=== PATIENT | female | born 1940 | race Caucasian/White ===

== ENCOUNTER 2021-10-14 08:43 | Emergency (ER) | payer MEDICARE, SELFPAY ==
--- NOTE | ~2021-10-14 | CT_ITS ---
EXAMINATION: CT abdomen pelvis w con DATE: 10/14/2021 09:49 INDICATION: Left lower quadrant abdominal pain. TECHNIQUE: Computed tomography (CT) of the abdomen and pelvis was performed with 100 mL Omnipaque 350 intravenous contrast. Automated exposure control and iterative reconstruction technique were employe d. The dose-length product was 1055.34 mGy-cm. COMPARISON: None. FINDINGS: The visualized portions of the lung bases demonstrate mild atelectasis. No pleural effusion . The heart size is normal. No pericardial effusion. There is a small sliding hiatal hernia. There is moderate intrahepatic biliary duct dilatation. The common duct is dilated to 16 mm. These findings a re likely not clinically significant given the normal liver function tests. There are changes of chol ecystectomy. The spleen, pancreas, adrenal glands, and right kidney are normal. There is a 5 mm cyst in left kidney. There are scattered diverticula in the colon. There is mild wall thickening of mid si gmoid colon. The proximal sigmoid colon is distended with stool. There is fat stranding around the pr oximal sigmoid colon. There is trace ascites. There are no pathologically enlarged lymph nodes. There is severe thoracic and lumbar spondylosis. IMPRESSION: 1. Mild wall thickening of mid sigmoid colon. Distended stool-filled proximal sigmoid colon with surr ounding fat stranding. These findings may be secondary to chronic diverticulitis with partial obstruc tion or acute diverticulitis. No perforation or abscess. Reviewed, dictated and finalized at location A. IMPRESSION: 1. Mild wall thickening of mid sigmoid colon. Distended stool-filled proximal s igmoid colon with surrounding fat stranding. These findings may be secondary to chronic diverticulitis with partial obstruction or acute diverticulitis. No pe rforation or abscess.
[2021-10-14 08:49] VITALS: BP 145/90; PULSE 95; RESP 18; TEMP 36.7; O2SAT 99
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
[2021-10-14 09:11] LABS: Basophils Absolute Auto 0.1 K/mm3 (0.0-0.1); Basophils Percent Auto 0.5 % (0.2-1.2); Eosinophils Absolute Auto 0.1 K/mm3 (0-0.3); Eosinophils Percent Auto 0.7 % (0-4.4); Hematocrit 41.5 % (37.0-47.0); Hemoglobin 13.8 g/dL (12.0-15.0); Immature Granulocyte Absolute 0.05 K/mm3 (0.00-0.031); Immature Granulocyte Percent A 0.4 % (0-0.5); Lymphocytes Absolute Auto 1.14 K/mm3 (0.9-3.2); Lymphocytes Percent Auto 9.6 % (18.3-44.2); Mean Corpuscular HGB Conc 33.3 g/dl (32-36); Mean Corpuscular Hemoglobin 30.9 pg (26-34); Mean Corpuscular Volume 92.8 fl (80-100); Monocytes Absolute Auto 1.4 K/mm3 (0.1-0.6); Monocytes Percent Auto 11.7 % (2.6-8.5); Neutrophils Absolute Auto 9.2 K/mm3 (1.3-6.7); Neutrophils Percent Auto 77.1 % (45.5-73.1); Platelet Count Result 403 k/mm3 (150-375); Red Blood Count 4.47 M/mm3 (4.2-5.4); Red Cell Distribution Width 12.7 % (11.5-14.5); White Blood Count 11.9 K/mm3 (4.5-10.0)
[2021-10-14] MEDS: MORPHINE SULFATE (*CRX) 4 MG/ML INJ IV PUSH (09:14)
[2021-10-14] MEDS: ONDANSETRON INJ 4 MG/2 ML VIAL IV PUSH (09:15)
[2021-10-14 09:18] LABS: Appearance Urine Clear (Clear); Bilirubin Urine 1+ (Negative); Color Urine Yellow (Yellow); Glucose Urine UA Negative (Negative); Ketones Urine Negative (Negative); Leukocyte Esterase Ur Trace LEU/UL (Negative); Nitrate Urine Negative (Negative); Protein Urine Negative (Negative)
[2021-10-14 09:20] LABS: Bacteria Urine Trace /hpf; Mucus Urine Rare /lpf; Squamous Epithelial Cell Urine Occasional /hpf (Few)
[2021-10-14 09:21] LABS: Add Urine Microscopic? YES; Blood Urine Trace-Intact (Negative)
[2021-10-14 09:22] LABS: Alanine Aminotransferase 14 U/L (4-35); Albumin Level 4.3 g/dL (3.5-5.1); Alkaline Phosphatase 91 U/L (38-126); Anion Gap 8 mmol/L (8-16); Aspartate Amino Transferase 31 U/L (14-36); Bilirubin,Total 1.1 mg/dL (0.2-1.3); Blood Urea Nitrogen 11 mg/dL (7-17); Calcium 9.4 mg/dL (8.4-10.2); Carbon Dioxide 28 mmol/L (22-30); Chloride 100 mmol/L (98-107); Estimated CRCL calculation 50 ml/min; Estimated Glomerular Filt Rate > 60; Glucose 127 mg/dL (65-110); Lipase 49 U/L (23-300); Potassium 4.2 mmol/L (3.4-5.0); Sodium 136 mmol/L (137-145)
[2021-10-14 09:25] LABS: INR 1.1; Lactic Acid Reflex 1.3 mmol/L (0.7-2.1); Prothrombin Time 13.7 Seconds (11.1-14.7)
[2021-10-14 09:26] LABS: Partial Thromboplastin Time 30.2 SECONDS (22.3-36.8)
[2021-10-14 09:32] VITALS: BP 179/109; PULSE 86; RESP 15; O2SAT 93
[2021-10-14 10:15] VITALS: PULSE 91; RESP 16; O2SAT 95
[2021-10-14 10:30] VITALS: PULSE 87; RESP 25; O2SAT 95
[2021-10-14 10:45] VITALS: PULSE 87; RESP 19; O2SAT 93
[2021-10-14 11:40] VITALS: BP 130/73; PULSE 90; RESP 20; O2SAT 97
== END 2021-10-14 11:30 | disposition home or self-care (01) ==
PROVIDERS: Emergency Provider Emergency Medicine; PCP Physician Assistant
DX: K57.92 Diverticulitis of intestine, part unspecified, without perforation or abscess without bleeding (principal)
CPT/HCPCS: 36415; 74177; 80053; 81001; 83605; 83690; 85025; 85610; 85730; 96374; 96375; 99284; J2270; J2405; Q9967

== ENCOUNTER 2022-09-23 15:42 | Emergency (ER) | payer OTHER, MEDICARE, SELFPAY ==
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
[2022-09-23 15:44] VITALS: BP 182/90; PULSE 79; RESP 18; TEMP 36.6; O2SAT 92
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
[2022-09-23] MEDS: ACETAMINOPHEN 500 MG TABLET 1000 MG PO (17:40)
[2022-09-23 18:28] VITALS: BP 156/73; PULSE 81; RESP 16; O2SAT 100
== END 2022-09-23 18:56 | disposition home or self-care (01) ==
PROVIDERS: Emergency Provider Physician Assistant; PCP Physician Assistant
DX: S16.1XXA Strain of muscle, fascia and tendon at neck level, initial encounter (principal); M19.90 Unspecified osteoarthritis, unspecified site; V43.62XA Car passenger injured in collision with other type car in traffic accident, initial encounter
CPT/HCPCS: 70450; 71046; 72125; 72131; 73030; 99284; A9270; L0140

== ENCOUNTER 2022-11-19 10:30 | Outpatient (CLI) | payer MEDICARE, SELFPAY ==
--- NOTE | ~2022-11-19 | XR_ITS ---
EXAMINATION: XR barium swallow DATE: 11/19/2022 11:20 INDICATION: Dysphagia. TECHNIQUE: The patient drank thick barium, gas-producing crystals, and thin barium. Fluoroscopy of th e hypopharynx and esophagus was performed. Fluoroscopy exposure time was 0.4 minutes. The total numbe r of images was 257. The dose-area product was 1.33 Gy-cm^2. COMPARISON: CT abdomen and pelvis 10/14/2021 FINDINGS: There is no mass or stricture of the esophagus. There is mildly decreased primary and secon quinn esophageal peristalsis. No abnormal tertiary waves. There is a small sliding hiatal hernia. Ther e are changes of anterior fusion procedure in cervical spine. IMPRESSION: 1. Mild esophageal dysmotility. 2. Small sliding hiatal hernia. Reviewed, dictated and finalized at location A.
== END 2022-11-19 10:31 | disposition home or self-care (01) ==
PROVIDERS: PCP Physician Assistant; Visit Provider Physician Assistant
DX: R13.10 Dysphagia, unspecified (principal); K44.9 Diaphragmatic hernia without obstruction or gangrene; K30 Functional dyspepsia
CPT/HCPCS: 74220; 99283

== ENCOUNTER 2023-06-14 00:45 | Day surgery (SDC) | payer MEDICARE, SELFPAY ==
[2023-06-11 13:25] VITALS: BMI 32.5
[2023-06-14] VITALS (18 sets, daily range): BP systolic 120–162; BP diastolic 51–85; PULSE 60–96; RESP 13–20; TEMP 36.4; O2SAT 96–100; BMI 32.0
[2023-06-14] MEDS: SODIUM CHLORIDE 0.9% IV 500 ML 100 ML IV CONT (08:00)
[2023-06-14 08:05] LABS: Basophils Absolute Auto 0.1 K/mm3 (0.0-0.1); Basophils Percent Auto 1.2 % (0.2-1.2); Eosinophils Absolute Auto 0.1 K/mm3 (0-0.3); Eosinophils Percent Auto 1.8 % (0-4.4); Hematocrit 38.6 % (37.0-47.0); Hemoglobin 12.8 g/dL (12.0-15.0); Immature Granulocyte Absolute 0.02 K/mm3 (0.00-0.031); Immature Granulocyte Percent A 0.3 % (0-0.5); Lymphocytes Absolute Auto 1.02 K/mm3 (0.9-3.2); Mean Corpuscular HGB Conc 33.2 g/dl (32-36); Mean Corpuscular Hemoglobin 31.3 pg (26-34); Mean Corpuscular Volume 94.4 fl (80-100); Mean Platelet Volume 10.8 fl (7.4-10.4); Monocytes Absolute Auto 0.9 K/mm3 (0.1-0.6); Monocytes Percent Auto 12.5 % (2.6-8.5); Neutrophils Absolute Auto 4.7 K/mm3 (1.3-6.7); Neutrophils Percent Auto 69.2 % (45.5-73.1); Platelet Count Result 262 k/mm3 (150-375); Red Blood Count 4.09 M/mm3 (4.2-5.4); Red Cell Distribution Width 12.9 % (11.5-14.5); White Blood Count 6.8 K/mm3 (4.5-10.0)
[2023-06-14 08:14] LABS: Anion Gap 8 mmol/L (8-16); Blood Urea Nitrogen 20 mg/dL (7-17); Calcium 9.4 mg/dL (8.4-10.2); Carbon Dioxide 24 mmol/L (22-30); Chloride 105 mmol/L (98-107); Estimated CRCL calculation 35 ml/min; Estimated Glomerular Filt Rate 53; Glucose 108 mg/dL (65-110); Potassium 4.6 mmol/L (3.4-5.0); Sodium 137 mmol/L (137-145)
--- NOTE | 2023-06-14 08:16 | WPDMODSED ---
Moderate Sedation Note-Pt Data Patient Data Diagnosis: Exertional dyspnea Abnormal nuclear stress test Present Complaint: ELLIOTT Procedure to be performed/Plan: Left heart catheterization Allergies Allergy/AdvReac Type Severity Reaction Status Date / Time No Known Allergies Allergy Verified 06/14/23 07:41 Home Medications Medication Instructions Recorded Confirmed Type aspirin 81 mg chewable tablet 81 mg PO BID 06/11/23 06/11/23 History calcium polycarbophil 625 mg 625 mg PO DAILY 06/11/23 06/11/23 History tablet (FiberCon) isosorbide mononitrate 30 mg 90 mg PO DAILY 06/11/23 06/11/23 History tablet,extended release 24 hr meloxicam 15 mg tablet 15 mg PO DAILY 06/11/23 06/11/23 History metoprolol succinate 25 mg 25 mg PO DAILY 06/11/23 06/11/23 History tablet,extended release 24 hr omeprazole 20 mg capsule,delayed 20 mg PO DAILY 06/11/23 06/11/23 History release valsartan 320 mg tablet 320 mg PO DAILY 06/11/23 06/11/23 History Current Medications: Active Medications Sodium Chloride (Normal Saline Iv) 500 mls @ 100 mls/hr IV CONT .Q5H AMANDA Sedation/Anesthesia: No previous sedation/anesthesia problems (including family history). [facility] Past Medical History Medical History (Updated 09/24/22 @ 00:04 by Elda Yoo) Osteoarthritis PMR (polymyalgia rheumatica) Surgical History Surgical History (Updated 10/22/21 @ 09:25 by Almita Gonzalez) History of total right knee replacement 2021 Family History Family History Mother Patient's mother is in good health, Onset Age: 89 Father Patient's father is in good health, Onset Age: 72 Sibling Patient's brother is in good health, Onset Age: 70 Social History Social History (Updated 10/22/21 @ 09:26 by Almita Gonzalez) Smoking status: Never smoker Second hand tobacco smoke exposure: No Alcohol intake: never Substance use: never Substance use type: does not use Living arrangements: with family Spiritual care concerns: No Mod Sed Physical Exam Physical Exam Pre Procedural Exam: Normal: Appearance, Neck, Throat, Airway, Lungs, Heart Size, Heart Rate, Heart Rhythm, Neuro Exam and Extremities Hours since solid foods: 12 Hours since liquid intake: 12 Mallampati Classification: class II Internal Medicine - PN: Obj Da Vital Signs Vital Signs: Vital Signs - 24 hr 06/14/23 07:47 Temperature 36.4 C Pulse Rate 82 Respiratory Rate 16 Blood Pressure 162/85 H Pulse Oximetry 100 Oxygen Delivery Room Air Meds/Results Medications: Active Medications Generic Name Dose Route Start Last Admin Trade Name Freq PRN Reason Stop Dose Admin Sodium Chloride 500 mls @ 100 mls/hr 06/14/23 07:00 Normal Saline Iv IV CONT .Q5H AMANDA Labs 06/14/23 07:45 06/14/23 07:45 Labs: Laboratory Results - last 24 hr 06/14/23 07:45 WBC 6.8 RBC 4.09 L Hgb 12.8 Hct 38.6 MCV 94.4 MCH 31.3 MCHC 33.2 RDW 12.9 Plt Count 262 MPV 10.8 H Immature Gran % (Auto) 0.3 Neut % (Auto) 69.2 Lymph % (Auto) 15.0 L [place] % (Auto) 12.5 H Eos % (Auto) 1.8 Baso % (Auto) 1.2 Lymph # (Auto) 1.02 [place] # (Auto) 0.9 H Eos # (Auto) 0.1 Baso # (Auto) 0.1 Abs Immat Gran (auto) 0.02 Absolute Neuts (auto) 4.7 Absolute Nucleated RBC 0.0 Nucleated RBC % 0.0 Sodium 137 Potassium 4.6 Chloride 105 Carbon Dioxide 24 Anion Gap 8 BUN 20 H Creatinine 1.00 Estim Creat Clear Calc 35 Estimated GFR 53 L Glucose 108 Calcium 9.4 ASA Classification/Sedation ASA Classification/Sedation ASA Class: II Emergent: No Risks: Risks, benefits and alternatives explained and patient/family accepted plan for sedation. Patient re-evaluated immediately prior to sedation.
--- NOTE | 2023-06-14 09:19 | P.PCNCC_ITS ---
Cardiac Cath Procedure Note Date of procedure:: 06/14/23 Performing physician:: Girma Mckeon MD Indication:: Exertional dyspnea abnormal nuclear stress test Brief clinical history:: this is an 82-year-old woman who has been experience symptoms symptoms of exertional shortness of breath. A nuclear stress test was interpreted as a small area of apical lateral ischemia. As result of this medical therapy was recommended given her mildly abnormal stress test and advanced age. Despite medical therapy for ischemic heart disease she remains symptomatic with ELLIOTT without any change. Angiography has now been recommended in that setting Procedure Procedure performed:: left ventriculogram coronary angiogram Sedation/Medication given:: fentanyl 50 mg Versed 1 mg case start time 8:49 a.m. case end time 9:14 a.m. sedation provided by Stephania Perdue RN, trained observer Access site:: right femoral artery Estimated blood loss:: 30 cc Procedure note:: patient was brought to the cardiac catheterization lab in the postabsorptive state where the right femoral triangle was prepared and draped in the usual fashion. Anesthesia was provided with 1% lidocaine infiltrated locally. Using the modified Seldinger technique the right femoral artery was punctured and a 5 [place] vascular sheath was placed. After this left heart catheterization was carried out. I used a 5 [place] angled pigtail catheter to document left-sided hemodynamics and to inject the left ventriculogram in the ABDI projection. Following this I advanced a 5 [place] FL4 catheter to the aortic root but was unsuccessful in engaging the left main either with this catheter or with the FL 3.5. I will to early was able to perform satisfactory angiography just outside of the left main using a AL1 catheter. The right coronary artery was engaged and injected using a 5 [place] JR4 catheter. The cineangiograms were reviewed and the case was terminated. The femoral artery was exam with an angiogram through the sheath it was determined that the sheath should be removed with direct manual compression. She was taken to the holding area for sheath removal without any evidence of groin hematoma there were no apparent procedural complications. Findings:: Hemodynamics: Central aortic pressure is 136 over 50 left ventricle 135/0 end-diastolic pressure 8 there is no gradient on pullback across the aortic valve. Left ventricle: The LV is normal in size all segments contract vigorously ejection fraction is hyperdynamic at 75-80%. The left main coronary artery is medium in caliber it is a superior takeoff and nicely patent without any stenosis. The left anterior descending is a small to medium caliber artery proximally and very small distally. The LAD however and its branches are free of stenosis. The circumflex is a small to medium caliber artery giving rise to the marginal branches. There is 1 significant marginal branch there are no atherosclerotic lesions. The right coronary artery is very large in caliber and dominant to the posterior circulation. The right coronary artery is smooth and angiographically normal in appearance Conclusion:: 1. right coronary dominant circulation with no angiographic evidence of sig nificant coronary artery disease 2. hyperdynamic left ventricular systolic contractility with normal LVEDP 3. left coronary with superior takeoff somewhat difficult to engage as described above Girma Mckeon MD FACC
[2023-06-14] MEDS: SODIUM CHLORIDE 0.9% IV 1,000 ML 125 ML IV CONT (12:00)
== END 2023-06-14 15:20 | disposition home or self-care (01) ==
PROVIDERS: PCP Physician Assistant; Visit Provider Specialist
PROC: 4A023N7 Measurement of Cardiac Sampling and Pressure, Left Heart, Percutaneous Approach (ICD-10-PCS; CPT 93452; principal; 2023-06-14 08:30)
DX: R94.39 Abnormal result of other cardiovascular function study (principal); M19.90 Unspecified osteoarthritis, unspecified site; M35.3 Polymyalgia rheumatica; Z79.82 Long term (current) use of aspirin
CPT/HCPCS: 36415; 80048; 85025; 93458; A9270; C1769; C1887; J1644; J2250; J3010; J7030; J7040

== ENCOUNTER 2023-07-01 10:06 | Outpatient (CLI) | payer MEDICARE, SELFPAY ==
--- NOTE | 2023-07-01 13:45 | WPDPFTINT ---
PFT Procedure Performed PFT Procedure Performed Spirometry with Pre/Post Bronchodilator Plethysmography (Lung Vol) Diffusing Cap (DLCO) Flow Vol Loop PFT Interpretation This is a pulmonary function test with pre and post-bronchodilator spirometry, plethysmography and diffusing capacity. The test was performed and results interpreted in accordance with the 2019 and 2005 ATS/ERS Task Force guidelines respectively using the Global Lung Function Initiative-2012 reference equations. Patient demonstrated good effort and cooperation. Reproducibility criteria were met. The quality of the pre bronchodilator spirometry maneuver was Grade A and post bronchodilator spirometry maneuver was Grade A. Findings: Spirometry: The contour the inspiratory and expiratory flow tracing are normal. The pre bronchodilator FVC is 2.29 L, 109% predicted. The pre bronchodilator FEV1 is 1.76 L, 111% predicted. The pre bronchodilator FEV1: FVC ratio 77%. The post bronchodilator FVC is 2.34 L, representing a 2% increase. The post bronchodilator FEV1 is 1.77 L, representing no change. The post bronchodilator FEV1: FVC ratio 75%. Plethysmography: The total lung capacity is 4.41 L, 100% predicted. The functional residual capacity is 2.22 L, 87% predicted. The residual volume is 1.97 L, 87% predicted. Diffusing capacity: The diffusing capacity unadjusted for hemoglobin and carboxyhemoglobin is 14.4, 83% predicted. The diffusing capacity adjusted for alveolar volume is 4.12, 97% predicted. Impression: The spirometry is normal without evidence of an obstructive abnormality. There is no significant improvement after inhaling a single dose of albuterol. The lung volumes are normal. The diffusing capacity is normal. There are no prior studies for comparison
== END 2023-07-01 10:07 | disposition home or self-care (01) ==
PROVIDERS: PCP Physician Assistant; Visit Provider Physician Assistant
DX: R06.00 Dyspnea, unspecified (principal)
CPT/HCPCS: 94060; 94726; 94729

== ENCOUNTER 2024-08-11 07:52 | Outpatient (CLI) | payer MEDICARE, SELFPAY ==
--- OUTSIDE RECORDS SUMMARY | 2024-08-11 07:56 | XMS_ITS | Data Portability ---
Author Organization [facility] NOLADiamond Address [address] [facility] [place] [place] [address] Care Team Providers Care Backside Grinder Name Role Phone [facility] Primary Care Provider Assessment No assessment recorded. Plan of Treatment Reminders Order Date Submit Date Provider Last Modified By Organization Details Last Modified Time Details Appointments ANY 15 2024 09:00A M JOE García Not available Not available Not available Lab lipid panel, serum 2023 024 [facility], [address] [place] [address], [facility] [address], [address], 01/25/2024 12:37:08 HbA1c (hemoglob in A1c), blood 2023 024 [facility], [address] [facility], [facility] 2, [place], [address], 01/25/2024 12:37:11 hepatic function panel, serum 2023 024 [facility], [facility], [facility] 2, [place], [address], 01/25/2024 12:37:10 BMP, serum or plasma 2023 024 [facility], [address] [facility], [facility] 2, [place], [address], 01/25/2024 12:37:10 unlisted lab - T4, free 2023 024 [facility], [facility], [facility] 2, [place], [address], 01/25/2024 12:37:09 TSH, ultra-sen sitive, serum 2023 024 [facility], [address] [place] [address], [facility] 2, [place], [address], 01/25/2024 12:37:11 CBC w/ auto diff 2023 024 [facility], [address] [place] [address] 2, [place], [address], 01/25/2024 12:37:12 HbA1c (hemoglob in A1c), blood 2023 025 [facility], [address] [place] [address], [facility] 2, [place], [address], 07/28/2024 07:09:51 hepatic function panel, serum 2023 025 [facility], [address] [place] [address] 2, [place], [address], 07/28/2024 07:09:49 BMP, serum or plasma 2023 025 FILP [facility], [address] [place] [address] 2, [place], [address], 07/28/2024 07:09:50 CBC w/ auto diff 2023 025 TOMAH [facility], [address] [place] [address] 2, [place], [address], 07/28/2024 07:09:52 Referral orthopedi c surgeon referral 2023 024 [facility], [address], [place], [address], 05/03/2024 13:37:37 Procedures None recorded. Surgeries None recorded. Imaging CT, chest, w/o contrast 2023 024 [facility] (Imaging), [address], [place], [address], 05/12/2024 12:41:04 FL, modified barium swallow study 2023 024 [facility] (Imaging), [address], [place], [address], 05/11/2024 16:24:16 Medication Orders None recorded. Patient TargetsNo targets recorded. Patient Instructions Encounter Date Encounter Id Patient Instructions Last Modified By Organization Details Last Modified Time 05/02/2024 [id number] A healthy lifestyle: care instructions [email or web address] Not available 05/02/2024 12:58:38 Reason for Referral Orthopedic Surgeon Referral for Pain of right shoulder joint Referring Physician: Nancy Corrigan, Internal Medicine, Encounter Date: 05/02/2024 Results Created Date Observation Date Name Description Value Unit Range Abnormal Flag Note LastModifiedBy Organization Detail LastModifiedTime 01/24/20 24 01/25/2024 LIPID PANEL cholesterol, total 171 mg/dL 100-19 9 Not Available [facility] ([facility]) [address] [facility], [place], [address], 01/25/2024 12:37:08 01/24/20 24 01/25/2024 LIPID PANEL triglyceride s 146 mg/dL 0-149 Not Available [facility]) [address] [facility], [place], [address], 01/25/2024 12:37:08 01/24/20 24 01/25/2024 LIPID PANEL HDL cholesterol 41 mg/dL >39 Not Available [facility] ([facility]) [address] [place], [address], 01/25/2024 12:37:08 01/24/20 24 01/25/2024 LIPID PANEL VLDL cholesterol peg 26 mg/dL 5-40 Not Available [facility] ([facility]) [address] [place], [address], 01/25/2024 12:37:08 01/24/20 24 01/25/2024 LIPID PANEL LDL chol calc ([facility]) 104 mg/dL 0-99 above high normal Not Available [facility] ([facility]) [address] [facility] [place], [address], 01/25/2024 12:37:08 01/24/20 24 01/25/2024 T4, FREE T4,free(dire ct) 1.38 NG/dL 0.82-1 .77 Not Available [facility] ([facility]) [address] [facility] [place], [address], 01/25/2024 12:37:09 01/24/20 24 01/25/2024 HEPAT IC FUNCT ION PANEL (7) protein, total 6.4 g/dL 6.0-8. 5 Not Available [facility] ([facility]) [address] [place], [address], 01/25/2024 12:37:10 01/24/20 24 01/25/2024 HEPAT IC FUNCT ION PANEL (7) albumin 4.3 g/dL 3.7-4. 7 Not Available [facility] ([facility]) [address] [place], [address], 01/25/2024 12:37:10 01/24/20 24 01/25/2024 HEPAT IC FUNCT ION PANEL (7) bilirubin, total 0.5 mg/dL 0.0-1. 2 Not Available [facility] ([facility]) [address] [place], [address], 01/25/2024 12:37:10 01/24/20 24 01/25/2024 HEPAT IC FUNCT ION PANEL (7) bilirubin, direct 0.13 mg/dL 0.00-0 .40 Not Available [facility] ([facility]) [address] [place], [address], 01/25/2024 12:37:10 01/24/20 24 01/25/2024 HEPAT IC FUNCT ION PANEL (7) alkaline phosphatase 91 IU/L 44-121 Not Available [facility] ([facility]) [address] [place], [address], 01/25/2024 12:37:10 01/24/20 24 01/25/2024 HEPAT IC FUNCT ION PANEL (7) AST (SGOT) 21 IU/L 0-40 Not Available [facility] ([facility]) [address] [place], [address], 01/25/2024 12:37:10 01/24/20 24 01/25/2024 HEPAT IC FUNCT ION PANEL (7) ALT (SGPT) 11 IU/L 0-32 Not Available [facility] ([facility]) [address] [place], [address], 01/25/2024 12:37:10 01/24/20 24 01/25/2024 BMP7+ EGFR glucose 103 mg/dL 70-99 above high normal Not Available [facility] ([facility]) [address] [place], [address], 01/25/2024 12:37:10 01/24/20 24 01/25/2024 BMP7+ EGFR BUN 19 mg/dL 8-27 Not Available [facility] ([facility]) [address] [place], [address], 01/25/2024 12:37:10 01/24/20 24 01/25/2024 BMP7+ EGFR creatinine 1.06 mg/dL 0.57-1 .00 above high normal Not Available [facility] ([facility]) [address] [place], [address], 01/25/2024 12:37:10 01/24/20 24 01/25/2024 BMP7+ EGFR eGFR 51 mL/mi n/1.7 3 >59 below low normal Not Available [facility] ([facility]) [address] [facility] [place], [address], 01/25/2024 12:37:10 01/24/20 24 01/25/2024 BMP7+ EGFR sodium 136 mmol/ L 134-14 4 Not Available [facility] ([facility]) [address] [facility] [place], [address], 01/25/2024 12:37:10 01/24/20 24 01/25/2024 BMP7+ EGFR potassium 5.5 mmol/ L 3.5-5. 2 above high normal Not Available [facility] ([facility]) [address] [facility] [place], [address], 01/25/2024 12:37:10 01/24/20 24 01/25/2024 BMP7+ EGFR chloride 100 mmol/ L 96-106 Not Available [facility] ([facility]) [address] [place], [address], 01/25/2024 12:37:10 01/24/20 24 01/25/2024 BMP7+ EGFR carbon dioxide, total 24 mmol/ L 20-29 Not Available [facility] ([facility]) [address] [place], [address], 01/25/2024 12:37:10 01/24/20 24 01/25/2024 HEMOG LOBIN A1C hemoglobin A1C 6.2 % 4.8-5. 6 above high normal Predi abete s: 5.7 - 6.4 Diabe dawson: >6.4 Glyce malini contr ol for adult s with diabe dawson: <7.0 Not Available [facility] ([facility]) [address] [place], [address], 01/25/2024 12:37:11 01/24/20 24 01/25/2024 TSH TSH 4.310 uIU/m L 0.450- 4.500 Not Available [facility] ([facility]) [address] [place], [address], 01/25/2024 12:37:11 01/24/20 24 01/25/2024 CBC WITH DIFFE RENTI AL/PL ATELE T WBC 7.6 x10e3 /uL 3.4-10 .8 Not Available [facility] ([facility]) [address] [facility], [place], [address], 01/25/2024 12:37:12 01/24/20 24 01/25/2024 CBC WITH DIFFE RENTI AL/PL ATELE T RBC 4.38 x10e6 /uL 3.77-5 .28 Not Available [facility] ([facility]) [address] [place], [address], 01/25/2024 12:37:12 01/24/20 24 01/25/2024 CBC WITH DIFFE RENTI AL/PL ATELE T hemoglobin 13.0 g/dL 11.1-1 5.9 Not Available [facility] ([facility]) [address] [place], [address], 01/25/2024 12:37:12 01/24/20 24 01/25/2024 CBC WITH DIFFE RENTI AL/PL ATELE T hematocrit 40.5 % 34.0-4 6.6 Not Available [facility] ([facility]) [address] [place], [address], 01/25/2024 12:37:12 01/24/20 24 01/25/2024 CBC WITH DIFFE RENTI AL/PL ATELE T MCV 93 fL 79-97 Not Available [facility] ([facility]) [address] [place], [address], 01/25/2024 12:37:12 01/24/20 24 01/25/2024 CBC WITH DIFFE RENTI AL/PL ATELE T MCH 29.7 pg 26.6-3 3.0 Not Available [facility] ([facility]) [address] [place], [address], 01/25/2024 12:37:12 01/24/20 24 01/25/2024 CBC WITH DIFFE RENTI AL/PL ATELE T MCHC 32.1 g/dL 31.5-3 5.7 Not Available [facility] ([facility]) [address] [facility], [place], [address], 01/25/2024 12:37:12 01/24/20 24 01/25/2024 CBC WITH DIFFE RENTI AL/PL ATELE T RDW 13.3 % 11.7-1 5.4 Not Available [facility] ([facility]) [address] [facility], [place], [address], 01/25/2024 12:37:12 01/24/20 24 01/25/2024 CBC WITH DIFFE RENTI AL/PL ATELE T platelets 304 x10e3 /uL 150-45 0 Not Available [facility] ([facility]) [address] [facility], [place], [address], 01/25/2024 12:37:12 01/24/20 24 01/25/2024 CBC WITH DIFFE RENTI AL/PL ATELE T neutrophils 65 % notest ab. Not Available [facility] ([facility]) [address] [facility], [place], [address], 01/25/2024 12:37:12 01/24/20 24 01/25/2024 CBC WITH DIFFE RENTI AL/PL ATELE T lymphs 19 % notest ab. Not Available [facility] ([facility]) [address] [facility], [place], [address], 01/25/2024 12:37:12 01/24/20 24 01/25/2024 CBC WITH DIFFE RENTI AL/PL ATELE T monocytes 12 % notest ab. Not Available [facility] ([facility]) [address] [facility], [place], [address], 01/25/2024 12:37:12 01/24/20 24 01/25/2024 CBC WITH DIFFE RENTI AL/PL ATELE T eos 3 % notest ab. Not Available [facility] ([facility]) [address] [place], [address], 01/25/2024 12:37:12 01/24/20 24 01/25/2024 CBC WITH DIFFE RENTI AL/PL ATELE T basos 1 % notest ab. Not Available [facility] ([facility]) [address] [facility], [place], [address], 01/25/2024 12:37:12 01/24/20 24 01/25/2024 CBC WITH DIFFE RENTI AL/PL ATELE T neutrophils (absolute) 5.0 x10e3 /uL 1.4-7. 0 Not Available [facility] ([facility]) [address] [place], [address], 01/25/2024 12:37:12 01/24/20 24 01/25/2024 CBC WITH DIFFE RENTI AL/PL ATELE T lymphs (absolute) 1.4 x10e3 /uL 0.7-3. 1 Not Available [facility] ([facility]) [address] [place], [address], 01/25/2024 12:37:12 01/24/20 24 01/25/2024 CBC WITH DIFFE RENTI AL/PL ATELE T monocytes(ab solute) 0.9 x10e3 /uL 0.1-0. 9 Not Available [facility] ([facility]) [address] [place], [address], 01/25/2024 12:37:12 01/24/20 24 01/25/2024 CBC WITH DIFFE RENTI AL/PL ATELE T eos (absolute) 0.2 x10e3 /uL 0.0-0. 4 Not Available [facility] ([facility]) [address] [place], [address], 01/25/2024 12:37:12 01/24/20 24 01/25/2024 CBC WITH DIFFE RENTI AL/PL ATELE T baso (absolute) 0.1 x10e3 /uL 0.0-0. 2 Not Available [facility] ([facility]) [address] [facility] [place], [address], 01/25/2024 12:37:12 01/24/20 24 01/25/2024 CBC WITH DIFFE RENTI AL/PL ATELE T immature granulocytes 0 % notest ab. Not Available [facility] ([facility]) [address] [facility] [place], [address], 01/25/2024 12:37:12 01/24/20 24 01/25/2024 CBC WITH DIFFE RENTI AL/PL ATELE T immature grans (abs) 0.0 x10e3 /uL 0.0-0. 1 Not Available [facility] ([facility]) [address] [facility], [place], [address], 01/25/2024 12:37:12 07/27/1907/28/2024 HEPAT IC FUNCT ION PANEL (7) protein, total 6.8 g/dL 6.0-8. 5 Not Available [facility] ([facility]) [address] [facility] [place], [address], 07/28/2024 07:09:48 07/27/19 25 07/28/2024 HEPAT IC FUNCT ION PANEL (7) albumin 4.6 g/dL 3.7-4. 7 Not Available [facility] ([facility]) [address] [facility] [place], [address], 07/28/2024 07:09:48 07/27/19 25 07/28/2024 HEPAT IC FUNCT ION PANEL (7) bilirubin, total 0.5 mg/dL 0.0-1. 2 Not Available [facility] ([facility]) [address] [facility] [place], [address], 07/28/2024 07:09:48 07/27/19 25 07/28/2024 HEPAT IC FUNCT ION PANEL (7) bilirubin, direct 0.15 mg/dL 0.00-0 .40 Not Available [facility] ([facility]) [address] [place], [address], 07/28/2024 07:09:48 07/27/19 25 07/28/2024 HEPAT IC FUNCT ION PANEL (7) alkaline phosphatase 84 IU/L 44-121 Not Available [facility] [address] [place], [address], 07/28/2024 07:09:48 07/27/19 25 07/28/2024 HEPAT IC FUNCT ION PANEL (7) AST (SGOT) 16 IU/L 0-40 Not Available [facility] ([facility]) [address] [place], [address], 07/28/2024 07:09:48 07/27/19 25 07/28/2024 HEPAT IC FUNCT ION PANEL (7) ALT (SGPT) 14 IU/L 0-32 Not Available [facility] ([facility]) [address] [place], [address], 07/28/2024 07:09:48 07/27/19 25 07/28/2024 BMP7+ EGFR glucose 107 mg/dL 70-99 above high normal Not Available [facility] ([facility]) [address] [place], [address], 07/28/2024 07:09:50 07/27/19 25 07/28/2024 BMP7+ EGFR BUN 19 mg/dL 8-27 Not Available [facility] ([facility]) [address] [place], [address], 07/28/2024 07:09:50 07/27/19 25 07/28/2024 BMP7+ EGFR creatinine 1.02 mg/dL 0.57-1 .00 above high normal Not Available [facility] ([facility]) [address] [place], [address], 07/28/2024 07:09:50 07/27/19 25 07/28/2024 BMP7+ EGFR eGFR 54 mL/mi n/1.7 3 >59 below low normal Not Available [facility] ([facility]) [address] [place], [address], 07/28/2024 07:09:50 07/27/19 25 07/28/2024 BMP7+ EGFR sodium 134 mmol/ L 134-14 4 Not Available [facility] ([facility]) [address] [place], [address], 07/28/2024 07:09:50 07/27/19 25 07/28/2024 BMP7+ EGFR potassium 5.0 mmol/ L 3.5-5. 2 Not Available [facility] ([facility]) [address] [place], [address], 07/28/2024 07:09:50 07/27/19 25 07/28/2024 BMP7+ EGFR chloride 98 mmol/ L 96-106 Not Available [facility] ([facility]) [address] [place], [address], 07/28/2024 07:09:50 07/27/19 25 07/28/2024 BMP7+ EGFR carbon dioxide, total 22 mmol/ L 20-29 Not Available [facility] ([facility]) [address] [place], [address], 07/28/2024 07:09:50 07/27/19 25 07/28/2024 HEMOG LOBIN A1C hemoglobin A1C 6.1 % 4.8-5. 6 above high normal Predi abete s: 5.7 - 6.4 Diabe dawson: >6.4 Glyce malini contr ol for adult s with diabe dawson: <7.0 Not Available [facility] ([facility]) [address] [facility], [place], [address], 07/28/2024 07:09:51 07/27/19 25 07/27/2024 CBC WITH DIFFE RENTI AL/PL ATELE T WBC 7.6 x10e3 /uL 3.4-10 .8 Not Available [facility] ([facility]) [address] [facility], [place], [address], 07/28/2024 07:09:52 07/27/19 25 07/27/2024 CBC WITH DIFFE RENTI AL/PL ATELE T RBC 4.40 x10e6 /uL 3.77-5 .28 Not Available [facility] ([facility]) [address] [facility], [place], [address], 07/28/2024 07:09:52 07/27/19 25 07/27/2024 CBC WITH DIFFE RENTI AL/PL ATELE T hemoglobin 13.2 g/dL 11.1-1 5.9 Not Available [facility] ([facility]) [address] [facility], [place], [address], 07/28/2024 07:09:52 07/27/19 25 07/27/2024 CBC WITH DIFFE RENTI AL/PL ATELE T hematocrit 41.8 % 34.0-4 6.6 Not Available [facility] ([facility]) [address] [facility], [place], [address], 07/28/2024 07:09:52 07/27/19 25 07/27/2024 CBC WITH DIFFE RENTI AL/PL ATELE T MCV 95 fL 79-97 Not Available [facility] ([facility]) [address] [facility], [place], [address], 07/28/2024 07:09:52 07/27/19 25 07/27/2024 CBC WITH DIFFE RENTI AL/PL ATELE T MCH 30.0 pg 26.6-3 3.0 Not Available [facility] ([facility]) [address] [facility], [place], [address], 07/28/2024 07:09:52 07/27/19 25 07/27/2024 CBC WITH DIFFE RENTI AL/PL ATELE T MCHC 31.6 g/dL 31.5-3 5.7 Not Available [facility] ([facility]) [address] [facility], [place], [address], 07/28/2024 07:09:52 07/27/19 25 07/27/2024 CBC WITH DIFFE RENTI AL/PL ATELE T RDW 12.4 % 11.7-1 5.4 Not Available [facility] ([facility]) [address] [place], [address], 07/28/2024 07:09:52 07/27/19 25 07/27/2024 CBC WITH DIFFE RENTI AL/PL ATELE T platelets 358 x10e3 /uL 150-45 0 Not Available [facility] ([facility]) [address] [facility], [place], [address], 07/28/2024 07:09:52 07/27/19 25 07/27/2024 CBC WITH DIFFE RENTI AL/PL ATELE T neutrophils 66 % notest ab. Not Available [facility] ([facility]) [address] [place], [address], 07/28/2024 07:09:52 07/27/19 25 07/27/2024 CBC WITH DIFFE RENTI AL/PL ATELE T lymphs 20 % notest ab. Not Available [facility] ([facility] [address] [place], [address], 07/28/2024 07:09:52 07/27/19 25 07/27/2024 CBC WITH DIFFE RENTI AL/PL ATELE T monocytes 11 % notest ab. Not Available [facility] [address] [place], [address], 07/28/2024 07:09:52 07/27/19 25 07/27/2024 CBC WITH DIFFE RENTI AL/PL ATELE T eos 2 % notest ab. Not Available [facility] ([facility]) [address] [facility], [place], [address], 07/28/2024 07:09:52 07/27/19 25 07/27/2024 CBC WITH DIFFE RENTI AL/PL ATELE T basos 1 % notest ab. Not Available [facility] ([facility]) [address] [facility], [place], [address], 07/28/2024 07:09:52 07/27/19 25 07/27/2024 CBC WITH DIFFE RENTI AL/PL ATELE T neutrophils (absolute) 4.9 x10e3 /uL 1.4-7. 0 Not Available [facility] ([facility]) [address] [facility], [place], [address], 07/28/2024 07:09:52 07/27/19 25 07/27/2024 CBC WITH DIFFE RENTI AL/PL ATELE T lymphs (absolute) 1.5 x10e3 /uL 0.7-3. 1 Not Available [facility] ([facility]) [address] [place], [address], 07/28/2024 07:09:52 07/27/19 25 07/27/2024 CBC WITH DIFFE RENTI AL/PL ATELE T monocytes(ab solute) 0.9 x10e3 /uL 0.1-0. 9 Not Available [facility] ([facility]) [address] [place], [address], 07/28/2024 07:09:52 07/27/19 25 07/27/2024 CBC WITH DIFFE RENTI AL/PL ATELE T eos (absolute) 0.2 x10e3 /uL 0.0-0. 4 Not Available [facility] ([facility]) [address] [facility], [place], [address], 07/28/2024 07:09:52 07/27/19 25 07/27/2024 CBC WITH DIFFE RENTI AL/PL ATELE T baso (absolute) 0.1 x10e3 /uL 0.0-0. 2 Not Available [facility] ([facility]) [address] [facility], [place], [address], 07/28/2024 07:09:52 07/27/19 25 07/27/2024 CBC WITH DIFFE RENTI AL/PL ATELE T immature granulocytes 0 % notest ab. Not Available [facility] ([facility]) [address] [facility], [place], [address], 07/28/2024 07:09:52 07/27/19 25 07/27/2024 CBC WITH DIFFE RENTI AL/PL ATELE T immature grans (abs) 0.0 x10e3 /uL 0.0-0. 1 Not Available [facility] ([facility]) [address] [facility], [place], [address], 07/28/2024 07:09:52 05/09/20 24 05/09/2024 [place], modif ied ric villalobos study No observ ation record ed. [facility] (Im[facility]) [address] [place] [address] [address], [place], [address], 05/12/2024 12:51:21 05/15/20 24 05/15/2024 [place], modif ied ric villalobos study No observ ation record ed. [place] [address] [facility] [facility] [address], [place], [address], 05/15/2024 21:05:25 Result Notes None recorded. Problems Name Problem SNOMED Code Status Onset Date Resolution Date Notes Provider Name and Address Organization Details Recorded Time Benign essential hypertensio n 0458052 Active 2023 JOE García Attn: Accountin g,[address] [facility], [place], [address], [place] [facility] 4 11:48:14 Polymyalgia rheumatica 85981635 Active 2023 JOE García Attn: Accountin g,[address] [facility], [place], [address], [place] [facility] 4 11:48:15 Multiple joint pain 25606651 Active 2023 JOE García Attn: Accountin g,[address] [facility], [place], [address], [place] [facility] 4 11:48:16 Blood glucose outside reference range 921576733 Active 2023 JOE García Attn: Accountin g,[address] [facility], [place], [address], [place] [facility] 4 11:48:25 Body mass index 30+ - obesity 142588240 Active 2023 Zenaida Lenz MA null, [place] [facility] 4 12:33:03 Long-term drug therapy Active 2023 JOE García Attn: Accountin g,[address] [facility], [place], [address], [place] [facility] 4 22:03:35 Gastroesoph ageal reflux disease without esophagitis 094546008 Active 2023 JOE García Attn: Accountin g,[address] [facility], [place], [address], [place] [facility] 4 22:03:38 Overweight 484165825 Active 2023 JOE García Attn: Accountin g,[address] [facility], [place], [address], [place] [facility] 4 22:03:41 Prediabetes 613610182 Active 2023 JOE García Attn: Accountin g,[address] [facility], [place], [address], [place] [facility] 22:04:19 Pain of right shoulder joint [id number] 9100 Active 2023 JOE García Attn: Lynne begum,[address] [facility], [place], [address], [place] [facility] 4 22:04:44 Persistent cough 700073271 Active 2023 JOE García Attn: Lynne begum,[address] [facility], [place], [address], [place] [facility] 22:05:08 Difficulty swallowing 252730282 Active 2023 JOE García Attn: Lynne begum,[address] [facility], [place], [address], [place] [facility] 22:05:26 Problem Notes None recorded. Procedures Surgical History Date Name Laterality Status Provider Name and Address Organization Details Recorded Time Back Surgery completed Zenaida Lenz [place] [facility] 11/02/2023 12:24:51 Eye Surgery completed Zenaida Lenz [place] [facility] 11/02/2023 12:24:56 Joint Replacement completed Zenaida Lenz [place] [facility] 11/02/2023 12:25:00 Knee Surgery completed Zenaida Lenz [place] [facility] 11/02/2023 12:25:05 Tonsillectomy completed Zenaida Lenz [place] [facility] 11/02/2023 12:25:10 Imaging Results Imaging Date Name Status [facility] by [facility] Details LastModified Time 05/09/2024 [place], modified barium swallow study completed [facility] ([facility]) [address] [place] [address] [place] [address], [address], 05/12/2024 12:51:21 05/15/2024 [place], modified barium swallow study completed [place] [address] [facility] [address] [place] [address], [address], 05/15/2024 21:05:25 Procedure Notes None recorded. Medical Equipment None Reported. Allergies No known drug allergies Medications Name Sig Start Date Stop Date Status Note LastModified by Organization Details LastModified Time meloxicam 15 mg tablet 1 tab p.o. daily with meal as needed active Not Available Not Available No t Available valsartan 320 mg tablet 1 tab p.o. daily active Not Available Not Available No t Available omeprazole 20 mg capsule,latisha yed release Take 1 capsule every day by oral route. 2023 active Not Available Not Available Not Avai lable valsartan 160 mg tablet TAKE 1 TABLET BY MOUTH ONCE DAILY 11/01 completed Not Available Not Available Not Available omeprazole 20 mg tablet,delay ed release 1 tab p.o. daily 06/26 completed Not Available Not Available Not Available aspirin 81 mg capsule Take 1 capsule every day by oral route. active Not Available Not Available No t Available Vitals Date Recorded Body height Respiratory rate Oxygen saturation Oxygen saturation in Arterial blood by Pulse oximetry Heart rate Body mass index (BMI) Body weight Systolic blood pressure Diastolic blood pressure Provider Name and Address Organization Details Last Updated DateTime 4 154.94 cm 20 /min 97 % 97 % 73 /min 32.3 kg/m2 51038.5 8 g 132 mm[Hg] 82 mm[Hg] Zenaida Lenz MA [facility] 12:08:51 Date Recorded Systolic blood pressure Diastolic blood pressure Provider Name and Address Organization Details Last Updated DateTime 11/02/2023 134 mm[Hg] 80 mm[Hg] JOE García Attn: [facility] [place], [address], [place] - [facility] 11/02/2023 12:20:13 Date Recorded Body height Body mass index (BMI) Body weight Respiratory rate Heart rate Oxygen saturation Oxygen saturation in Arterial blood by Pulse oximetry Oxygen saturation Oxygen saturation in Arterial blood by Pulse oximetry Systolic blood pressure Diastolic blood pressure Systolic blood pressure Diastolic blood pressure Provider Name and Address Organization Details Last Updated DateTime 4 154.94 cm 32.1 kg/m2 60855.7 g 20 /min 78 /min 94 % 94 % 96 % 96 % 138 mm[Hg] 82 mm[Hg] 128 mm[Hg] 88 mm[Hg] Zenaida Lenz MA [place] - [facility] 12:43:29 Date Recorded Systolic blood pressure Diastolic blood pressure Systolic blood pressure Diastolic blood pressure Provider Name and Address Organization Details Last Updated DateTime 05/02/2024 140 mm[Hg] 80 mm[Hg] 140 mm[Hg] 80 mm[Hg] JOE García Attn: Accounting ,[address] [place], [address] , [place] - [facility] 12:59:45 Social History Question Answer Notes LastModified by Organizat ion Details LastModified Time Tobacco Smoking Status Never Smoker Zenaida Lenz MA null, [facility] 11/02/2023 12:05:03 Do You Have An Advance Directive? Yes Information n ot available 11/02/2023 What Is Your Level Of Alcohol Consumption? None Information not available 11/02/2023 Are You Blind Or Do You Have Difficulty Seeing? No Information n ot available 11/02/2023 What Is Your Level Of Caffeine Consumption? Moderate Coffee Information not available 11/02/2023 In The 14 Days Before Symptom Onset, Have You Had Close Contact With A Laboratory-confirm ed COVID-19 While That Case Was Ill? No Information n ot available 11/02/2023 In The 14 Days Before Symptom Onset, Have You Had Close Contact With A Person Who Is Under Investigation For COVID-19 While That Person Was Ill? No Information not available 11/02/2023 Have You Been To An Area Known To Be High Risk For COVID-19? No Information not available 11/02/2023 Are You Deaf Or Do You Have Serious Difficulty Hearing? No Information not available 11/02/2023 What Type Of Diet Are You Following? REGULAR Information n ot available 11/02/2023 Are There Any Guns Present In Your Home? No Information not available 11/02/2023 What Was The Date Of Your Most Recent Tobacco Screening? 05/02/2024 Information not available 05/02/2024 Do You Use Your Seat Belt Or Car Seat Routinely? Yes Information not available 11/02/2023 Do You Have Smoke And Carbon Monoxide Detectors In Your Home? Yes Information not available 11/02/2023 Do You Use Any Illicit Or Recreational Drugs? No Information not available 11/02/2023 Do You Use Sunscreen Routinely? No Information not available 11/02/2023 Has Tobacco Cessation Counseling Been Provided? Yes Information not available 11/02/2023 On What Date Was Tobacco Cessation Counseling Provided? 05/02/2024 Information not available 05/02/2024 Do You Or Have You Ever Used Any Other Forms Of Tobacco Or Nicotine? No Information not available 11/02/2023 Sex: Female Functional Status Question Answer Note LastModified by Organization D etails LastModified Time Are you able to care for yourself? Yes Information n ot available 11/02/2023 What is your exercise level? None Information not available 11/02/2023 Mental Status None recorded. Family History Relationship Description Onset Age of this Age Resolved Age Notes LastModified by Organization Details LastModified Time Mother Diabetes mellitus [email or web address] available 2023 12:27:15 Brother Diabetes mellitus [email or web address] Not available 2023 12:27:19 Father Heart disease [email or web address] Not available 2023 12:27:26 Medical History Condition Response Acid Reflux (GERD) Y High Blood Pressure Y Gynecological History Statement/Question Response Menses Monthly N Current Control Method Other Obstetrics History GPAL:G 0 P 0 0 0 0 Immunizations Vaccine Type Date Status Note Provider Nam e and Address Organization Details Recorded Time COVID-19, mRNA, LNP-S, PF, 100 mcg/0.5mL dose or 50 mcg/0.25mL dose 1 completed Zenaida Lenz [place] null, [place] - [facility] 05/01/2024 16:27:37 COVID-19, mRNA, LNP-S, PF, 100 mcg/0.5mL dose or 50 mcg/0.25mL dose 1 completed Zenaida Lenz [place], [place] - [facility] 05/01/2024 16:27:37 pneumococcal conjugate PCV 7 4 completed Zenaida Lenz MA null, [place] - [facility] 05/01/2024 16:27:37 influenza, [id number] 4 completed Zenaida Lenz [place] null, [place] - [facility] 05/01/2024 16:27:37 Past Encounters Encounter ID Performer Location Encounter Start Date Encounter Closed Date Diagnosis/Indication Diagnosis SNOMED-CT Code Diagnosis ICD10 Code Diagnosis Note [id number] JOE García [facility] [address] - [employer] [address] [place] [address] 11/02/2023 11:42:42 11/02/2023 12:24:03 Benign essential hypertension 6701962 I10 stable on valsartan 320mg daily. Multiple joint pain 3567 8005 M25.50 stable on meloxicam 15mg daily Long-term drug therapy 245630958 Z79.899 routine labs due in january. Blood gluc ose outside reference range 021421031 R73.09 following a1c with hx of extended steroid course for PMR hx. Gastroesop hageal reflux disease without esophagitis 240445748 K21.9 stable on omeprazole 20mg daily. 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 Pending results we may send her for an EGD. Persistent cough 4597728 02 R05[address] of the chest without contrast. Cough persists despite pulmonary function testing being normal last year as well as barium swallow testing and PPI therapy being on board. Dyspnea 189811715 R06.00 CT of the chest without contrast as ordered above Pain of ri ght shoulder joint 8425106286 0248681 M25.511 Refer to orthopedic office for evaluation and management plan for right shoulder pain that is increasing in nature and causing progressiv e range of motion issues. Benign ess ential hypertension 2186918 I10 stable on valsartan 320mg daily. Blood pressure is 140/80 today Gastroesop hageal reflux disease without esophagitis 066235482 K21.9 stable on omeprazole 20mg daily. Multiple joint pain 3567 8005 M25.50 stable on meloxicam 15mg daily Long-term drug therapy 105294516 Z79.899 Routine metabolic panel and CBC is due in July Prediabetes 999758896 R7 3.03 6.2% A1c on January labs. Continue watching added sugars in the diet and simple carbohydra dawson repeat A1c in July Health Concerns Section Related Observation LastModified by Organization Detai ls LastModified Time None Recorded Concern Status LastModified by Organization Details LastModified Time None Recorded Advance Directives Directive Y: Payers Encounter Date Sequence Insurance Name Policy Number Policy Grady Covered Member ID Grady Member ID Guarantor Name 11/02/[address] [facility] (MEDICARE REPLACEMENT/A DVANTAGE - HMO) [id number] Sofi Dumont [id number] Sofi Dumont 05/02/[address] [facility] (MEDICARE REPLACEMENT/A DVANTAGE - HMO) [id number] Sofi Dumont [id number] Sofi Dumont Notes Date Note Type Note Provider Name and Address Organization Details Recorded Time 4 text/html HypertensionReported bypatient.Notes:stable on medications.Reflux/GERDRe ported bypatient.Notes:well controlled on PPI therapy hx of Polymyalgia rheumatica that is in remission and multiple joint pain hx, mostly shoulders are problematic. on meloxicam therapy. JOE García Attn: Accounting,[address] [facility], [place], [address], [facility] 11/02/2023 13:46:40 4 text/html HypertensionReported bypatient.Notes:Patient is taking valsartan therapy but says that her blood pressures have been higher at home of recently.Reflux/GERDRepor carmelina bypatient.Notes:well controlled on PPI therapy hx of Polymyalgia rheumatica that is in remission and multiple joint pain hx, mostly shoulders are problematic. on meloxicam therapy. Patient also has bilateral shoulder pain but her right shoulder is becoming more painful and range of motion is decreasing and strength is decreasing. Patient has a history of prediabetes and labs are being followed Patient is reporting her cough is still present despite taking omeprazole and she also has some shortness of breath. Patient reports continued difficulty swallowing. She did have a barium swallow study in 2022 which showed some abnormal tertiary peristalsis. She feels that liquids and solids and sometimes even just saliva are difficult to swallow. There is no pain during swallowing. JOE García Attn: Accounting,[address] [place], [address], [facility] 05/02/2024 22:05:48 OBGyn Episode No OBEpisode recorded.
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
--- NOTE | 2024-08-11 16:45 | WPDSIXMINUTE ---
Six Minute Walk Procedure Procedure Performed Pulmonary Stress Test (6 min walk) Six Minute Walk Six Minute Walk: This is a 6 minute walk test. The test was performed and interpreted in accordance with the 2014 ERS/ATS task force guidelines. Of note, patient used a wheeled walker for stability. Findings: The patient's resting room air oxygen saturation measured by pulse oximetry was 99%, the heart rate was 84 bpm, and the modified Cruz dyspnea score was 0. Patient ambulated for 274 meters and oxygen saturation remained 96 to 98%. At the end of the study the heart rate was 116 bpm and the modified Cruz dyspnea score was 0 to 1. The patient did not qualify for supplemental oxygen at rest or with ambulation. There are no prior studies for comparison.
--- NOTE | 2024-08-11 16:46 | WPDPFTINT ---
PFT Procedure Performed PFT Procedure Performed Spirometry with Pre/Post Bronchodilator Plethysmography (Lung Vol) Diffusing Cap (DLCO) Flow Vol Loop PFT Interpretation This is a pulmonary function test with pre and post-bronchodilator spirometry, plethysmography and diffusing capacity. The test was performed and results interpreted in accordance with the 2019 and 2005 ATS/ERS Task Force guidelines respectively using the Global Lung Function Initiative-2012 reference equations. Patient demonstrated good effort and cooperation. Reproducibility criteria were met. The quality of the pre bronchodilator spirometry maneuver was Grade A and post bronchodilator spirometry maneuver was Grade A. Findings: Spirometry: The contour the inspiratory and expiratory flow tracing are normal. The pre bronchodilator FVC is 2.29 L, 111% predicted. The pre bronchodilator FEV1 is 1.71 L, 109% predicted. The pre bronchodilator FEV1: FVC ratio 75%. The post bronchodilator FVC is 2.34 L, representing a 2% increase. The post bronchodilator FEV1 is 1.78 L, representing a 4% increase. The post bronchodilator FEV1: FVC ratio 76%. Plethysmography: The total lung capacity is 4.49 L, 101% predicted. The functional residual capacity is 2.28 L, 89% predicted. The residual volume is 2.02 L, 88% predicted. Diffusing capacity: The diffusing capacity unadjusted for hemoglobin and carboxyhemoglobin is 14.7, 86% predicted. The diffusing capacity adjusted for alveolar volume is 4.19, 99% predicted. In comparison to previous pulmonary function testing on 07/01/2023, the post bronchodilator FVC is unchanged from 2.34 L to 2.34 L. The post bronchodilator FEV1 is unchanged from 1.77 L to 1.78 L. The total lung capacity is unchanged from 4.41 L to 4.49 L. The functional residual capacity is unchanged from 2.22 L to 2.28 L. The residual volume is unchanged from 1.97 L to 2.02 L. The diffusing capacity unadjusted for hemoglobin and carboxyhemoglobin is unchanged from 14.4 to 14.7. The diffusing capacity adjusted for alveolar volume is unchanged from 4.12 to 4.19. Impression: The spirometry is normal without evidence of an obstructive abnormality. There is no significant improvement after inhaling a single dose of albuterol. The lung volumes are normal. The diffusing capacity is normal. In comparison to previous pulmonary function testing on 07/01/2023 there has been no significant change in the FVC, FEV1, total lung capacity, functional residual capacity, residual volume or diffusing capacity. Clinical correlation is recommended.
== END 2024-08-11 07:53 | disposition home or self-care (01) ==
LOC: ANHPFT 07:54
PROVIDERS: PCP Physician Assistant; Visit Provider Internal Medicine Pulmonary Disease
DX: R06.09 Other forms of dyspnea (principal)
CPT/HCPCS: 94060; 94618; 94726; 94729

== ENCOUNTER 2024-09-05 12:24 | Observation (INO) | payer MEDICARE, SELFPAY ==
[2024-09-05] VITALS (41 sets, daily range): BP systolic 115–162; BP diastolic 49–81; PULSE 72–89; RESP 16–24; TEMP 37.2–37.3; O2SAT 87–100; BMI 31.8
--- NOTE | ~2024-09-05 | XR_ITS ---
CHEST RADIOGRAPH CLINICAL HISTORY: influenza . COMPARISON: 09/23/2022 TECHNIQUE: Single portable view of the chest. FINDINGS The cardiomediastinal silhouette is partially obscured. Low lung volumes detected bilaterally. Increased interstitial markings are identified bilaterally, findings suggesting moderate pulmonary va scular congestion. Blunting of the left costophrenic sulcus suggesting a small left-sided pleural effusion. IMPRESSION: Moderate pulmonary vascular congestion with a small left-sided pleural effusion and low lung volumes Reviewed, dictated and finalized at location A. YARD SUPERVISOR
--- NOTE | 2024-09-05 12:46 | ED.NAVMDI ---
HPI - Nausea/Vomiting/Diarrhea General Chief complaint: Nausea/Vomiting/Diarrhea <Maria De Jesus Miles PA-C - Last Filed: 09/05/24 17:30> Stated complaint: flu A, vomiting <Maria De Jesus Miles PA-C - Last Filed: 09/05/24 17:30> Time Seen by Provider: 09/05/24 12:27 <Maria De Jesus Miles PA-C - Last Filed: 09/05/24 17:30> Source: patient <Maria De Jesus Miles PA-C - Last Filed: 09/05/24 17:30> Mode of arrival: ambulatory <Maria De Jesus Miles PA-C - Last Filed: 09/05/24 17:30> Limitations: no limitations <Maria De Jesus Miles PA-C - Last Filed: 09/05/24 17:30> History of Present Illness HPI Narrative: This is a 83 year old female that presents to the ER for nausea and vomiting. Patient reports she has the flu. She was seen by her PCP yesterday and started on Azithromycin, a steroid and Tamiflu. She is feeling weak, unable to keep anything down. <Maria De Jesus Miles PA-C - Last Filed: 09/05/24 17:30> Related Data Home medications: Home Medications ?Medication ?Instructions ?Recorded ?Confirmed ?Last Taken ?Type aspirin 81 mg chewable tablet 81 mg PO BID 06/11/23 08/02/24 06/14/23 History calcium polycarbophil 625 mg 625 mg PO DAILY 06/11/23 08/02/24 06/11/23 History tablet (FiberCon) meloxicam 15 mg tablet 15 mg PO DAILY 06/11/23 08/02/24 06/14/23 History omeprazole 20 mg capsule,delayed 20 mg PO DAILY 06/11/23 08/02/24 06/14/23 History release valsartan 320 mg tablet 320 mg PO DAILY 06/11/23 08/02/24 06/14/23 History <JAZMIN Chin Last Filed: 09/05/24 17:30> Allergies/Adverse reactions: Allergies Allergy/AdvReac Type Severity Reaction Status Date / Time No Known Allergies Allergy Verified 08/02/24 09:29 <Maria De Jesus Miles PA-C - Last Filed: 09/05/24 17:30> Review of Systems Review of Systems: CONSTITUTIONAL: Denies fever ENT: Reports rhinorrhea, congestion, sore throat RESPIRATORY: Reports cough GASTROINTESTINAL: Reports nausea, vomiting <JAZMIN Chin Last Filed: 09/05/24 17:30> All systems reviewed & are unremarkable except as noted in HPI and below <JAZMIN Chin Last Filed: 09/05/24 17:30> PMFSH Past Medical History Medical History: Medical History TIA (transient ischemic attack) Cataracts, bilateral Cervical vertebral fusion Hyperlipidemia Hypertension PMR (polymyalgia rheumatica) Osteoarthritis <JAZMIN Chin Last Filed: 09/05/24 17:30> Surgical History Surgical History: Surgical History H/O hernia repair S/P cholecystectomy History of total right knee replacement 2021 <JAZMIN Chin Last Filed: 09/05/24 17:30> Family History Family History: Family History Mother Patient's mother is in good health, Onset Age: 89 Father Patient's father is in good health, Onset Age: 72 Sibling Patient's brother is in good health, Onset Age: 70 <JAZMIN Chin Last Filed: 09/05/24 17:30> Social History Social History: Social History Smoking status: Never smoker Second hand tobacco smoke exposure: No Alcohol intake: never Substance use: never Substance use type: does not use Living arrangements: with family Spiritual care concerns: No <JAZMIN Chin Last Filed: 09/05/24 17:30> Exam Narrative: GENERAL: Elderly, well-nourished, and in no acute distress. HEAD: Normocephalic, atraumatic. EYES: EOMI. ENT: Nares clear, no rhinorrhea or epistaxis. Mucous membranes moist. Oropharynx without tonsillar hypertrophy exudate or other lesions. Bilateral TMs pearly hull non-bulging NECK: Supple. No adenopathy or masses. CHEST: Clear to auscultation. No respiratory distress. No wheezes rales or rhonchi HEART: Regular rate and rhythm. No murmur heard. Normal peripheral pulses. ABDOMEN: Soft, nontender, nondistended, normal active bowel sounds. EXTREMITIES: Normal range of motion. No edema. SKIN: Warm, dry, no rash. NEURO: No focal deficits. Alert and oriented x3. PSYCH: Normal mood and affect <Maria De Jesus Miles PA-C - Last Filed: 09/05/24 17:30> Course Course Emergency Course: Patient and family updated on workup and recommendation for admission <Maria De Jesus Miles PA-C - Last Filed: 09/05/24 17:30> BATTER DEPOSITOR/PA Physician Supervision I agree with midlevel documentation; I performed the medical decision making component of this evaluation. <Dolly Kraus MD - Last Filed: 09/05/24 18:04> Consultations Consultation #1: Spoke with hospitalist about patient and workup who accepts admission <Maria De Jesus Miles PA-C - Last Filed: 09/05/24 17:30> Date: 09/05/24 <Maria De Jesus Miles PA-C - Last Filed: 09/05/24 17:30> Vital Signs Vital signs: Vital Signs Pulse Oximetry 96 09/05/24 12:34 Temperature 99.2 F 09/05/24 12:40 Pulse Rate 79 09/05/24 17:47 Respiratory Rate 20 09/05/24 17:47 Blood Pressure 129/53 L 09/05/24 17:47 Pulse Oximetry 97 09/05/24 17:47 <Maria De Jesus Miles PA-C - Last Filed: 09/05/24 17:30> Vital Signs Pulse Oximetry 96 09/05/24 12:34 Temperature 99.2 F 09/05/24 12:40 Pulse Rate 79 09/05/24 17:47 Respiratory Rate 20 09/05/24 17:47 Blood Pressure 129/53 L 09/05/24 17:47 Pulse Oximetry 97 09/05/24 17:47 <Dolly Kraus MD - Last Filed: 09/05/24 18:04> MDM - Nausea/Vomiting/Diarrhea MDM Narrative Medical decision making narrative: Patient presents to the emergency department for nausea and vomiting. Positive for influenza A. She is afebrile and nontoxic appearing. Her vitals are stable. Cbc without leukocytosis. Metabolic panel with evidence of dehydration. Urine with evidence of infection. Will be started on IV antibiotics. Admitted for further management. Spoke with hospitalist about patient and workup who accepts admission <Maria De Jesus Miles PA-C - Last Filed: 09/05/24 17:30> Differential Diagnosis Differential diagnosis: Likely gastroenteritis, dehydration and other (influenza, UTI) <Maria De Jesus Miles PA-C - Last Filed: 09/05/24 17:30> Lab Data Attestation: I reviewed the patient's lab results. <Maria De Jesus Miles PA-C - Last Filed: 09/05/24 17:30> Result diagrams: 09/05/24 12:45 09/05/24 12:45 <Maria De Jesus Miles PA-C - Last Filed: 09/05/24 17:30> Labs: Lab Results 09/05/24 09/05/24 09/05/24 Range/Units 12:45 12:52 14:07 WBC 6.4 (4.5-10.0) K/mm3 RBC 4.41 (4.2-5.4) M/mm3 Hgb 13.7 (12.0-15.0) g/dL Hct 40.0 (37.0-47.0) % MCV 90.7 (80-100) fl MCH 31.1 (26-34) pg MCHC 34.3 (32-36) g/dl RDW 13.1 (11.5-14.5) % Plt Count 244 (150-375) k/mm3 MPV 10.2 (7.4-10.4) fl Immature Gran % (Auto) 0.3 (0-0.5) % Neut % (Auto) 74.6 H (45.5-73.1) % Lymph % (Auto) 5.8 L (18.3-44.2) % Wilson % (Auto) 18.5 H (2.6-8.5) % Eos % (Auto) 0.0 (0-4.4) % Baso % (Auto) 0.8 (0.2-1.2) % Lymph # (Auto) 0.37 L (0.9-3.2) K/mm3 Wilson # (Auto) 1.2 H (0.1-0.6) K/mm3 Eos # (Auto) 0.0 (0-0.3) K/mm3 Baso # (Auto) 0.1 (0.0-0.1) K/mm3 Abs Immat Gran (auto) 0.02 (0.00-0.031) K/mm3 Absolute Neuts (auto) 4.8 (1.3-6.7) K/mm3 Absolute Nucleated RBC 0.000 (0.0-0.012) K/mm3 Nucleated RBC % 0.0 (0.0-0.2) % Sodium 133 L (137-145) mmol/L Potassium 4.0 (3.4-5.0) mmol/L Chloride 98 (98-107) mmol/L Carbon Dioxide 18 L (22-30) mmol/L Anion Gap 17 H (4-12) mmol/L BUN 20 H (7-17) mg/dL Creatinine 0.84 (0.7-1.0) mg/dL Estim Creat Clear Calc Not Reportable Estimated GFR > 60 (59 - ) Glucose 137 H (65-110) mg/dL Hemoglobin A1c 5.9 H (<5.7) % Calcium 9.3 (8.4-10.2) mg/dL Magnesium 2.0 (1.6-2.3) mg/dL Total Bilirubin 0.6 (0.2-1.3) mg/dL AST 29 (14-36) U/L ALT 20 (6-35) U/L Alkaline Phosphatase 75 (38-126) U/L Troponin I < 0.012 (0.000-0.034) ng/mL Total Protein 8.0 (6.3-8.2) g/dL Albumin 4.7 (3.5-5.1) g/dL Lipase 31 (23-300) U/L TSH Pending Urine Color (Yellow) Urine Appearance (Clear) Urine pH (5.0-9.0) Ur Specific [place] (1.001-1.035) Urine Protein (Negative) mg/dL Urine Glucose (UA) (Negative) mg/dL Urine Ketones (Negative) mg/dL Ur Blood (Man) (Negative) Urine Nitrate (Negative) Urine Bilirubin (Negative) Urine Urobilinogen (<2.0) mg/dL Add Ur Microanalysis Leukocyte Esterase Rfl (Negative) TYLER/UL Urine RBC (0-2) /hpf Urine WBC (0-3) /hpf Ur Squamous Epith Cells (Few) /hpf Urine Bacteria /hpf Urine Casts Influenza A (RT-PCR) Positive A (Negative) Influenza B (RT-PCR) Negative (Negative) SARS-CoV-2 RNA (RT-PCR) Negative (Negative) 09/05/24 Range/Units 14:08 WBC (4.5-10.0) K/mm3 RBC (4.2-5.4) M/mm3 Hgb (12.0-15.0) g/dL Hct (37.0-47.0) % MCV (80-100) fl MCH (26-34) pg MCHC (32-36) g/dl RDW (11.5-14.5) % Plt Count (150-375) k/mm3 MPV (7.4-10.4) fl Immature Gran % (Auto) (0-0.5) % Neut % (Auto) (45.5-73.1) % Lymph % (Auto) (18.3-44.2) % Wilson % (Auto) (2.6-8.5) % Eos % (Auto) (0-4.4) % Baso % (Auto) (0.2-1.2) % Lymph # (Auto) (0.9-3.2) K/mm3 Wilson # (Auto) (0.1-0.6) K/mm3 Eos # (Auto) (0-0.3) K/mm3 Baso # (Auto) (0.0-0.1) K/mm3 Abs Immat Gran (auto) (0.00-0.031) K/mm3 Absolute Neuts (auto) (1.3-6.7) K/mm3 Absolute Nucleated RBC (0.0-0.012) K/mm3 Nucleated RBC % (0.0-0.2) % Sodium (137-145) mmol/L Potassium (3.4-5.0) mmol/L Chloride (98-107) mmol/L Carbon Dioxide (22-30) mmol/L Anion Gap (4-12) mmol/L BUN (7-17) mg/dL Creatinine (0.7-1.0) mg/dL Estim Creat Clear Calc Estimated GFR (59 - ) Glucose (65-110) mg/dL Hemoglobin A1c (<5.7) % Calcium (8.4-10.2) mg/dL Magnesium (1.6-2.3) mg/dL Total Bilirubin (0.2-1.3) mg/dL AST (14-36) U/L ALT (6-35) U/L Alkaline Phosphatase (38-126) U/L Troponin I (0.000-0.034) ng/mL Total Protein (6.3-8.2) g/dL Albumin (3.5-5.1) g/dL Lipase (23-300) U/L TSH Urine Color Yellow (Yellow) Urine Appearance Clear (Clear) Urine pH 5.0 (5.0-9.0) Ur Specific [place] 1.022 (1.001-1.035) Urine Protein 2+ H (Negative) mg/dL Urine Glucose (UA) Negative (Negative) mg/dL Urine Ketones 1+ H (Negative) mg/dL Ur Blood (Man) 2+ H (Negative) Urine Nitrate Positive H (Negative) Urine Bilirubin Negative (Negative) Urine Urobilinogen 0.2 (<2.0) mg/dL Add Ur Microanalysis Reviewed Leukocyte Esterase Rfl Trace H (Negative) TYLER/UL Urine RBC 0-2 (0-2) /hpf Urine WBC 11-20 H (0-3) /hpf Ur Squamous Epith Cells None seen (Few) /hpf Urine Bacteria 4+ H /hpf Urine Casts 3-5 Influenza A (RT-PCR) (Negative) Influenza B (RT-PCR) (Negative) SARS-CoV-2 RNA (RT-PCR) (Negative) <Maria De Jesus Miles PA-C - Last Filed: 09/05/24 17:30> Lab Results 09/05/24 09/05/24 09/05/24 Range/Units 12:45 12:52 14:07 WBC 6.4 (4.5-10.0) K/mm3 RBC 4.41 (4.2-5.4) M/mm3 Hgb 13.7 (12.0-15.0) g/dL Hct 40.0 (37.0-47.0) % MCV 90.7 (80-100) fl MCH 31.1 (26-34) pg MCHC 34.3 (32-36) g/dl RDW 13.1 (11.5-14.5) % Plt Count 244 (150-375) k/mm3 MPV 10.2 (7.4-10.4) fl Immature Gran % (Auto) 0.3 (0-0.5) % Neut % (Auto) 74.6 H (45.5-73.1) % Lymph % (Auto) 5.8 L (18.3-44.2) % Wilson % (Auto) 18.5 H (2.6-8.5) % Eos % (Auto) 0.0 (0-4.4) % Baso % (Auto) 0.8 (0.2-1.2) % Lymph # (Auto) 0.37 L (0.9-3.2) K/mm3 Wilson # (Auto) 1.2 H (0.1-0.6) K/mm3 Eos # (Auto) 0.0 (0-0.3) K/mm3 Baso # (Auto) 0.1 (0.0-0.1) K/mm3 Abs Immat Gran (auto) 0.02 (0.00-0.031) K/mm3 Absolute Neuts (auto) 4.8 (1.3-6.7) K/mm3 Absolute Nucleated RBC 0.000 (0.0-0.012) K/mm3 Nucleated RBC % 0.0 (0.0-0.2) % Sodium 133 L (137-145) mmol/L Potassium 4.0 (3.4-5.0) mmol/L Chloride 98 (98-107) mmol/L Carbon Dioxide 18 L (22-30) mmol/L Anion Gap 17 H (4-12) mmol/L BUN 20 H (7-17) mg/dL Creatinine 0.84 (0.7-1.0) mg/dL Estim Creat Clear Calc Not Reportable Estimated GFR > 60 (59 - ) Glucose 137 H (65-110) mg/dL Hemoglobin A1c 5.9 H (<5.7) % Calcium 9.3 (8.4-10.2) mg/dL Magnesium 2.0 (1.6-2.3) mg/dL Total Bilirubin 0.6 (0.2-1.3) mg/dL AST 29 (14-36) U/L ALT 20 (6-35) U/L Alkaline Phosphatase 75 (38-126) U/L Troponin I < 0.012 (0.000-0.034) ng/mL Total Protein 8.0 (6.3-8.2) g/dL Albumin 4.7 (3.5-5.1) g/dL Lipase 31 (23-300) U/L TSH Pending Urine Color (Yellow) Urine Appearance (Clear) Urine pH (5.0-9.0) Ur Specific [place] (1.001-1.035) Urine Protein (Negative) mg/dL Urine Glucose (UA) (Negative) mg/dL Urine Ketones (Negative) mg/dL Ur Blood (Man) (Negative) Urine Nitrate (Negative) Urine Bilirubin (Negative) Urine Urobilinogen (<2.0) mg/dL Add Ur Microanalysis Leukocyte Esterase Rfl (Negative) TYLER/UL Urine RBC (0-2) /hpf Urine WBC (0-3) /hpf Ur Squamous Epith Cells (Few) /hpf Urine Bacteria /hpf Urine Casts Influenza A (RT-PCR) Positive A (Negative) Influenza B (RT-PCR) Negative (Negative) SARS-CoV-2 RNA (RT-PCR) Negative (Negative) 09/05/24 Range/Units 14:08 WBC (4.5-10.0) K/mm3 RBC (4.2-5.4) M/mm3 Hgb (12.0-15.0) g/dL Hct (37.0-47.0) % MCV (80-100) fl MCH (26-34) pg MCHC (32-36) g/dl RDW (11.5-14.5) % Plt Count (150-375) k/mm3 MPV (7.4-10.4) fl Immature Gran % (Auto) (0-0.5) % Neut % (Auto) (45.5-73.1) % Lymph % (Auto) (18.3-44.2) % Wilson % (Auto) (2.6-8.5) % Eos % (Auto) (0-4.4) % Baso % (Auto) (0.2-1.2) % Lymph # (Auto) (0.9-3.2) K/mm3 Wilson # (Auto) (0.1-0.6) K/mm3 Eos # (Auto) (0-0.3) K/mm3 Baso # (Auto) (0.0-0.1) K/mm3 Abs Immat Gran (auto) (0.00-0.031) K/mm3 Absolute Neuts (auto) (1.3-6.7) K/mm3 Absolute Nucleated RBC (0.0-0.012) K/mm3 Nucleated RBC % (0.0-0.2) % Sodium (137-145) mmol/L Potassium (3.4-5.0) mmol/L Chloride (98-107) mmol/L Carbon Dioxide (22-30) mmol/L Anion Gap (4-12) mmol/L BUN (7-17) mg/dL Creatinine (0.7-1.0) mg/dL Estim Creat Clear Calc Estimated GFR (59 - ) Glucose (65-110) mg/dL Hemoglobin A1c (<5.7) % Calcium (8.4-10.2) mg/dL Magnesium (1.6-2.3) mg/dL Total Bilirubin (0.2-1.3) mg/dL AST (14-36) U/L ALT (6-35) U/L Alkaline Phosphatase (38-126) U/L Troponin I (0.000-0.034) ng/mL Total Protein (6.3-8.2) g/dL Albumin (3.5-5.1) g/dL Lipase (23-300) U/L TSH Urine Color Yellow (Yellow) Urine Appearance Clear (Clear) Urine pH 5.0 (5.0-9.0) Ur Specific [place] 1.022 (1.001-1.035) Urine Protein 2+ H (Negative) mg/dL Urine Glucose (UA) Negative (Negative) mg/dL Urine Ketones 1+ H (Negative) mg/dL Ur Blood (Man) 2+ H (Negative) Urine Nitrate Positive H (Negative) Urine Bilirubin Negative (Negative) Urine Urobilinogen 0.2 (<2.0) mg/dL Add Ur Microanalysis Reviewed Leukocyte Esterase Rfl Trace H (Negative) TYLER/UL Urine RBC 0-2 (0-2) /hpf Urine WBC 11-20 H (0-3) /hpf Ur Squamous Epith Cells None seen (Few) /hpf Urine Bacteria 4+ H /hpf Urine Casts 3-5 Influenza A (RT-PCR) (Negative) Influenza B (RT-PCR) (Negative) SARS-CoV-2 RNA (RT-PCR) (Negative) <Dolly Kraus MD - Last Filed: 09/05/24 18:04> Critical Care Time Critical Care Time Critical Care Time: No <Maria De Jesus Miles PA-C - Last Filed: 09/05/24 17:30> Discharge Plan Discharge Clinical Impression: Acute dehydration, Acute UTI <Maria De Jesus Miles PA-C - Last Filed: 09/05/24 17:30> Patient Disposition: Still a Patient <Maria De Jesus Miles PA-C - Last Filed: 09/05/24 17:30> Condition: Stable <Maria De Jesus Miles PA-C - Last Filed: 09/05/24 17:30>
[2024-09-05] MEDS: SODIUM CHLORIDE 0.9% IV 500 ML 999 ML IV CONT ×2 (12:51→14:30)
[2024-09-05] MEDS: ONDANSETRON INJ 4 MG/2 ML VIAL IV PUSH ×2 (12:51→20:46)
[2024-09-05 12:53] LABS: Basophils Absolute Auto 0.1 K/mm3 (0.0-0.1); Basophils Percent Auto 0.8 % (0.2-1.2); Hemoglobin 13.7 g/dL (12.0-15.0); Immature Granulocyte Absolute 0.02 K/mm3 (0.00-0.031); Immature Granulocyte Percent A 0.3 % (0-0.5); Lymphocytes Absolute Auto 0.37 K/mm3 (0.9-3.2); Lymphocytes Percent Auto 5.8 % (18.3-44.2); Mean Corpuscular HGB Conc 34.3 g/dl (32-36); Mean Corpuscular Hemoglobin 31.1 pg (26-34); Mean Corpuscular Volume 90.7 fl (80-100); Mean Platelet Volume 10.2 fl (7.4-10.4); Monocytes Absolute Auto 1.2 K/mm3 (0.1-0.6); Monocytes Percent Auto 18.5 % (2.6-8.5); Neutrophils Absolute Auto 4.8 K/mm3 (1.3-6.7); Neutrophils Percent Auto 74.6 % (45.5-73.1); Platelet Count Result 244 k/mm3 (150-375); Red Blood Count 4.41 M/mm3 (4.2-5.4); Red Cell Distribution Width 13.1 % (11.5-14.5); White Blood Count 6.4 K/mm3 (4.5-10.0)
[2024-09-05 13:03] LABS: Alanine Aminotransferase 20 U/L (6-35); Albumin Level 4.7 g/dL (3.5-5.1); Alkaline Phosphatase 75 U/L (38-126); Anion Gap 17 mmol/L (4-12); Aspartate Amino Transferase 29 U/L (14-36); Bilirubin,Total 0.6 mg/dL (0.2-1.3); Blood Urea Nitrogen 20 mg/dL (7-17); Calcium 9.3 mg/dL (8.4-10.2); Carbon Dioxide 18 mmol/L (22-30); Chloride 98 mmol/L (98-107); Estimated Glomerular Filt Rate > 60; Glucose 137 mg/dL (65-110); Lipase 31 U/L (23-300); Sodium 133 mmol/L (137-145)
[2024-09-05 13:35] LABS: Influenza A QL RT-PCR Positive (Negative); Influenza B QL RT-PCR Negative (Negative); SARS-CoV-2 RNA PCR Negative (Negative)
--- NOTE | 2024-09-05 13:35 | PC.NURSE ---
bag of fluids is currently infusing, patient states she does not need to urinate yet but will when the fluids finish
--- NOTE | 2024-09-05 13:47 | ECG_ITS ---
Test Date: 2024-09-05 19:25:30 Measurements Intervals [place] Rate: 68 P: 5 TX: 197 QRS: -56 QRSD: 95 T: -3 QT: 391 QTc: 417 Interpretive Statements SINUS RHYTHM LOW QRS VOLTAGE IN PRECORDIAL LEADS [QRS DEFLECTION < 1.0 mV IN CHEST LEADS] POSSIBLE RIGHT VENTRICULAR CONDUCTION DELAY [RSR (QR) IN V1/V2] INFERIOR MYOCARDIAL INFARCTION , PROBABLY OLD [40+ ms Q WAVE AND/OR ST/T ABNORMALITY IN II/aVF] ANTEROLATERAL MYOCARDIAL INFARCTION , OF INDETERMINATE AGE [40+ ms Q WAVE IN I/aVL/V3-V6] No previous ECG available for comparison Electronically Signed On 09-06-2024 13:13:03 [employer]OD [employer]ATBU[employer] APPRENTICE by Camacho Bruce M.D.
--- NOTE | 2024-09-05 13:50 | PC.NURSE ---
normal saline 500 ml bags out in the pyxis, spoke with Renee in pharmacy that they would bring some up
--- OUTSIDE RECORDS SUMMARY | 2024-09-05 14:05 | XMS_ITS | Continuity of Care Document ---
Author Organization [facility] Address [address] [place] [address] [place] [address] Phone Care Team Providers Care Server Name Role Phone Unavailable Unavailable Unavailable Advance Directives Directive Yes / No Effective Date File Name No Information Encounters Encounter Description Practice Location Reason(s) For Visit Diagnoses Date Provider Providers Copied on [facility]counter [facility], [address] [place] [address] [address], [place], [place], [id number], [place] tel:[phone] [facility] No Information [id number] No Information Family History Family Member Type Diagnosis Age At Onset No Information Payers Payer name Insurance type Covered constitution party ID Authoriza tion(s) No Information Social History Type Description Quantity Date Captured Comments Sex Female Smoking Status No Information Chief Complaint And Reason For Visit No Information Reason For Referral Reason For Referral No Information History Of Present Illness Encounter Date Complaint History Of Prese nt Illness No Information Functional Status Date Functional Assessmen t No Information Instructions Date Instruction Additional Infor mation No Information Assessments Type Assessment Date No Information Patient Care Teams Name Effective Dates (start - stop) Status Members No Information
--- OUTSIDE RECORDS SUMMARY | 2024-09-05 14:05 | XMS_ITS | Patient Health Summary ---
Author Organization [facility] [employer] Address [address] [place] [address] Care Team Providers Care Choral Director Name Role Phone Girma Craven MD Primary Care Provider Note from [facility],non-owned Affiliates and Associated Physician Practices is amultiple site organization consisting of ambulatory clinics and hospital sitesin [place], [place], [place] and [place]. This disclosure is being madepursuant to the Care Everywhere program and may not contain all information available regarding this patient. Last updated 18.[facility] [employer] Allergies No known active allergies Medications * Be aware that medications may not be up to date on this document. Alwaysverify current medications with the patient. * omeprazole (PRILOSEC) 20 MG capsule(Started 03/14/2020) Take 20 mg by mouth daily before breakfast * niacinamide 100 MG tablet Take 100 mg by mouth once daily * Elastic Bandages & Supports (B-3 EXTRA HIGH COMP HOSE WOMEN) MISC * Calcium Carb-Cholecalciferol (CALCIUM 1000 + D) 1000-800 MG-UNIT(Started 06/12/2020) Take 1 tablet by mouth once daily * meloxicam (MOBIC) 15 MG tablet(Started 09/15/2021) Take 15 mg by mouth once daily * Cholecalciferol 50 MCG (2000 UT)(Started 09/19/2021) Take 2,000 Units by mouth once daily * aspirin (ASPIRIN) 81 MG chew tablet(Started 09/19/2021) Take 81 mg by mouth 2 times daily * Ascorbic Acid 500 MG(Started 09/19/2021) Take 500 mg by mouth 2 times daily * predniSONE (DELTASONE) 1 MG tablet(Started 12/22/2021) Take 1 (one) tablet by mouth once daily Active Problems Problem Noted Date Diagnosed Date Status post cervical spinal fusion 03/13/2010 Cervical spondylosis without myelopathy 02/25/20 10 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/11/2010 Resolved Problems Problem Noted Date Diagnosed Date Resolved Date Cervical spondylosis without myelopathy 01/29/2010 02/11/2010 Immunizations * Covid Moderna primary monovalent 12+ yr 0.5mL(Given 10/16/2020, 09/11/2020) * INFLUENZA VACCINE(Given 05/05/2021, 09/11/2020, 06/12/2020, 07/05/2016, 04/04/2014) * PNEUMOCOCCAL PCV7 CONJ, PEDS(Given 04/04/2014) * TDAP (7yrs+)(Given 06/12/2020) * TETANUS(Given 07/05/2009) Social History Tobacco Use Types Packs/Day Years Used Date Smoking Tobacco: Never Smokeless Tobacco: Never Alcohol Use Standard Drinks/Week Comments No 0 (1 standard drink = 0.6 oz pur e alcohol) PHQ-2 Answer Date Recorded PHQ2 TOTAL SCORE 0 03/17/2021 Sex and Gender Information Value Date Recorded Sex Assigned at Not on file Gender Identity Female 09/29/2020 3:14 PM CDT Sexual Orientation Straight 08/27/2021 12 :39 PM [employer] Last Filed Vital Signs Vital Sign Reading Time Taken Comments Blood Pressure 118/66 10/20/2021 3:49 PM CDT Pulse 72 10/20/2021 3:49 PM CDT Temperature 36.8 C (98.3 F) 10/20/2021 3:49 PM CDT Respiratory Rate 18 02/13/2010 7:51 AM CDT Oxygen Saturation 91% 02/13/2010 7:51 AM CDT Inhaled Oxygen Concentration - - Weight 76.2 kg (168 lb) 10/20/2021 3:49 PM CDT Height 154.9 cm (5' 1 ) 10/20/2021 3:49 PM CDT Body Mass Index 31.74 10/20/2021 3:49 PM CDT Procedures * ERYTHROCYTE SEDIMENTATION RATE(Performed 11/21/2021) Performed for PMR (polymyalgia rheumatica) ([facility]), On prednisone therapy, Therapeutic drug monitoring, Long-term use of immunosuppressant medication * C-REACTIVE PROTEIN(Performed 11/21/2021) Performed for PMR (polymyalgia rheumatica) ([facility]), On prednisone therapy, Therapeutic drug monitoring, Long-term use of immunosuppressant medication * COMPREHENSIVE METABOLIC PANEL(Performed 11/21/2021) Performed for PMR (polymyalgia rheumatica) ([facility]), On prednisone therapy, Therapeutic drug monitoring, Long-term use of immunosuppressant medication * CBC W AUTO DIFFERENTIAL(Performed 11/21/2021) Performed for PMR (polymyalgia rheumatica) ([facility]), On prednisone therapy, Therapeutic drug monitoring, Long-term use of immunosuppressant medication * URINALYSIS REFLEX TO MICROSCOPIC NO CULTURE(Performed 08/25/2021) Performed for Arthralgia, unspecified joint, Myalgia, PMR (polymyalgia rheumatica) ([facility]), On prednisone therapy * CBC W AUTO DIFFERENTIAL(Performed 08/25/2021) Performed for Arthralgia, unspecified joint, Myalgia, PMR (polymyalgia rheumatica) ([facility]), On prednisone therapy * ERYTHROCYTE SEDIMENTATION RATE(Performed 08/25/2021) Performed for Arthralgia, unspecified joint, Myalgia, PMR (polymyalgia rheumatica) ([facility]), On prednisone therapy * C-REACTIVE PROTEIN(Performed 08/25/2021) Performed for Arthralgia, unspecified joint, Myalgia, PMR (polymyalgia rheumatica) ([facility]), On prednisone therapy * COMPREHENSIVE METABOLIC PANEL(Performed 08/25/2021) Performed for Arthralgia, unspecified joint, Myalgia, PMR (polymyalgia rheumatica) ([facility]), On prednisone therapy * URINALYSIS MICROSCOPIC ONLY REFLEXED(Performed 06/06/2021) Performed for PMR (polymyalgia rheumatica) ([facility]), On prednisone therapy, High risk medication use, Arthralgia, unspecified joint * URINALYSIS W/MICROSCOPIC REFLEX TO CULTURE(Performed 06/06/2021) Performed for PMR (polymyalgia rheumatica) ([facility]), On prednisone therapy, High risk medication use, Arthralgia, unspecified joint * CBC W AUTO DIFFERENTIAL(Performed 06/06/2021) Performed for PMR (polymyalgia rheumatica) ([facility]), On prednisone therapy, High risk medication use, Arthralgia, unspecified joint * ERYTHROCYTE SEDIMENTATION RATE(Performed 06/06/2021) Performed for PMR (polymyalgia rheumatica) ([facility]), On prednisone therapy, High risk medication use, Arthralgia, unspecified joint * C-REACTIVE PROTEIN(Performed 06/06/2021) Performed for PMR (polymyalgia rheumatica) ([facility]), On prednisone therapy, High risk medication use, Arthralgia, unspecified joint * COMPREHENSIVE METABOLIC PANEL(Performed 06/06/2021) Performed for PMR (polymyalgia rheumatica) ([facility]), On prednisone therapy, High risk medication use, Arthralgia, unspecified joint * URINALYSIS MICROSCOPIC ONLY REFLEXED(Performed 04/15/2021) Performed for PMR (polymyalgia rheumatica) ([facility]), On prednisone therapy, High risk medication use, Arthralgia, unspecified joint * URINALYSIS W/MICROSCOPIC REFLEX TO CULTURE(Performed 04/15/2021) Performed for PMR (polymyalgia rheumatica) ([facility]), On prednisone therapy, High risk medication use, Arthralgia, unspecified joint * CBC W AUTO DIFFERENTIAL(Performed 04/15/2021) Performed for PMR (polymyalgia rheumatica) ([facility]), On prednisone therapy, High risk medication use, Arthralgia, unspecified joint * ERYTHROCYTE SEDIMENTATION RATE(Performed 04/15/2021) Performed for PMR (polymyalgia rheumatica) ([facility]), On prednisone therapy, High risk medication use, Arthralgia, unspecified joint * C-REACTIVE PROTEIN(Performed 04/15/2021) Performed for PMR (polymyalgia rheumatica) ([facility]), On prednisone therapy, High risk medication use, Arthralgia, unspecified joint * COMPREHENSIVE METABOLIC PANEL(Performed 04/15/2021) Performed for PMR (polymyalgia rheumatica) ([facility]), On prednisone therapy, High risk medication use, Arthralgia, unspecified joint * CULTURE URINE COMPREHENSIVE(Performed 04/15/2021) Performed for PMR (polymyalgia rheumatica) ([facility]), On prednisone therapy, High risk medication use, Arthralgia, unspecified joint * SS-B (SJOGREN'S) ANTIBODY(Performed 04/15/2021) Performed for Abnormal immunological finding in serum * SS-A (SJOGREN'S) ANTIBODY(Performed 04/15/2021) Performed for Abnormal immunological finding in serum * URINALYSIS REFLEX TO MICROSCOPIC NO CULTURE(Performed 03/11/2021) Performed for Arthralgia, unspecified joint, Myalgia, PMR (polymyalgia rheumatica) ([facility]), On prednisone therapy * CBC W AUTO DIFFERENTIAL(Performed 03/11/2021) Performed for Arthralgia, unspecified joint, Myalgia, PMR (polymyalgia rheumatica) ([facility]), On prednisone therapy * ERYTHROCYTE SEDIMENTATION RATE(Performed 03/11/2021) Performed for Arthralgia, unspecified joint, Myalgia, PMR (polymyalgia rheumatica) ([facility]), On prednisone therapy * C-REACTIVE PROTEIN(Performed 03/11/2021) Performed for Arthralgia, unspecified joint, Myalgia, PMR (polymyalgia rheumatica) ([facility]), On prednisone therapy * COMPREHENSIVE METABOLIC PANEL(Performed 03/11/2021) Performed for Arthralgia, unspecified joint, Myalgia, PMR (polymyalgia rheumatica) ([facility]), On prednisone therapy * URINALYSIS MICROSCOPIC ONLY REFLEXED(Performed 01/03/2021) Performed for Arthralgia, unspecified joint, Myalgia, ESR raised, Therapeutic drug monitoring * URINALYSIS W/MICROSCOPIC REFLEX TO CULTURE(Performed 01/03/2021) Performed for Arthralgia, unspecified joint, Myalgia, ESR raised, Therapeutic drug monitoring * ERYTHROCYTE SEDIMENTATION RATE(Performed 01/03/2021) Performed for Arthralgia, unspecified joint, Myalgia, ESR raised, Therapeutic drug monitoring * C-REACTIVE PROTEIN(Performed 01/03/2021) Performed for Arthralgia, unspecified joint, Myalgia, ESR raised, Therapeutic drug monitoring * COMPREHENSIVE METABOLIC PANEL(Performed 01/03/2021) Performed for Arthralgia, unspecified joint, Myalgia, ESR raised, Therapeutic drug monitoring * CBC W AUTO DIFFERENTIAL(Performed 01/03/2021) Performed for Arthralgia, unspecified joint, Myalgia, ESR raised, Therapeutic drug monitoring * URINALYSIS MICROSCOPIC ONLY REFLEXED(Performed 10/02/2020) Performed for Arthralgia, unspecified joint, Myalgia, ESR raised, Therapeutic drug monitoring * URINALYSIS W/MICROSCOPIC REFLEX TO CULTURE(Performed 10/02/2020) Performed for Arthralgia, unspecified joint, Myalgia, ESR raised, Therapeutic drug monitoring * ERYTHROCYTE SEDIMENTATION RATE(Performed 10/02/2020) Performed for Arthralgia, unspecified joint, Myalgia, ESR raised, Therapeutic drug monitoring * C-REACTIVE PROTEIN(Performed 10/02/2020) Performed for Arthralgia, unspecified joint, Myalgia, ESR raised, Therapeutic drug monitoring * COMPREHENSIVE METABOLIC PANEL(Performed 10/02/2020) Performed for Arthralgia, unspecified joint, Myalgia, ESR raised, Therapeutic drug monitoring * CBC W AUTO DIFFERENTIAL(Performed 10/02/2020) Performed for Arthralgia, unspecified joint, Myalgia, ESR raised, Therapeutic drug monitoring * URINALYSIS MICROSCOPIC ONLY REFLEXED(Performed 08/13/2020) Performed for Arthralgia, unspecified joint, Myalgia, ESR raised, Therapeutic drug monitoring * URINALYSIS W/MICROSCOPIC REFLEX TO CULTURE(Performed 08/13/2020) Performed for Arthralgia, unspecified joint, Myalgia, ESR raised, Therapeutic drug monitoring * ERYTHROCYTE SEDIMENTATION RATE(Performed 08/13/2020) Performed for Arthralgia, unspecified joint, Myalgia, ESR raised, Therapeutic drug monitoring * C-REACTIVE PROTEIN(Performed 08/13/2020) Performed for Arthralgia, unspecified joint, Myalgia, ESR raised, Therapeutic drug monitoring * COMPREHENSIVE METABOLIC PANEL(Performed 08/13/2020) Performed for Arthralgia, unspecified joint, Myalgia, ESR raised, Therapeutic drug monitoring * CBC W AUTO DIFFERENTIAL(Performed 08/13/2020) Performed for Arthralgia, unspecified joint, Myalgia, ESR raised, Therapeutic drug monitoring * URINALYSIS MICROSCOPIC ONLY REFLEXED(Performed 07/08/2020) Performed for Arthralgia, unspecified joint, Myalgia, ESR raised, Therapeutic drug monitoring * URINALYSIS W/MICROSCOPIC REFLEX TO CULTURE(Performed 07/08/2020) Performed for Arthralgia, unspecified joint, Myalgia, ESR raised, Therapeutic drug monitoring * ERYTHROCYTE SEDIMENTATION RATE(Performed 07/08/2020) Performed for Arthralgia, unspecified joint, Myalgia, ESR raised, Therapeutic drug monitoring * C-REACTIVE PROTEIN(Performed 07/08/2020) Performed for Arthralgia, unspecified joint, Myalgia, ESR raised, Therapeutic drug monitoring * COMPREHENSIVE METABOLIC PANEL(Performed 07/08/2020) Performed for Arthralgia, unspecified joint, Myalgia, ESR raised, Therapeutic drug monitoring * CBC W AUTO DIFFERENTIAL(Performed 07/08/2020) Performed for Arthralgia, unspecified joint, Myalgia, ESR raised, Therapeutic drug monitoring * CULTURE URINE COMPREHENSIVE(Performed 07/08/2020) Performed for Arthralgia, unspecified joint, Myalgia, ESR raised, Therapeutic drug monitoring * URINALYSIS MICROSCOPIC ONLY REFLEXED(Performed 05/28/2020) Performed for Arthralgia, unspecified joint, Myalgia, ESR raised, Therapeutic drug monitoring * URINALYSIS W/MICROSCOPIC REFLEX TO CULTURE(Performed 05/28/2020) Performed for Arthralgia, unspecified joint, Myalgia, ESR raised, Therapeutic drug monitoring * ERYTHROCYTE SEDIMENTATION RATE(Performed 05/28/2020) Performed for Arthralgia, unspecified joint, Myalgia, ESR raised, Therapeutic drug monitoring * C-REACTIVE PROTEIN(Performed 05/28/2020) Performed for Arthralgia, unspecified joint, Myalgia, ESR raised, Therapeutic drug monitoring * COMPREHENSIVE METABOLIC PANEL(Performed 05/28/2020) Performed for Arthralgia, unspecified joint, Myalgia, ESR raised, Therapeutic drug monitoring * CBC W AUTO DIFFERENTIAL(Performed 05/28/2020) Performed for Arthralgia, unspecified joint, Myalgia, ESR raised, Therapeutic drug monitoring * URINALYSIS MICROSCOPIC ONLY REFLEXED(Performed 04/24/2020) Performed for Arthralgia, unspecified joint, Myalgia, ESR raised, Therapeutic drug monitoring * URINALYSIS W/MICROSCOPIC REFLEX TO CULTURE(Performed 04/24/2020) Performed for Arthralgia, unspecified joint, Myalgia, ESR raised, Therapeutic drug monitoring * ERYTHROCYTE SEDIMENTATION RATE(Performed 04/24/2020) Performed for Arthralgia, unspecified joint, Myalgia, ESR raised, Therapeutic drug monitoring * C-REACTIVE PROTEIN(Performed 04/24/2020) Performed for Arthralgia, unspecified joint, Myalgia, ESR raised, Therapeutic drug monitoring * COMPREHENSIVE METABOLIC PANEL(Performed 04/24/2020) Performed for Arthralgia, unspecified joint, Myalgia, ESR raised, Therapeutic drug monitoring * CBC W AUTO DIFFERENTIAL(Performed 04/24/2020) Performed for Arthralgia, unspecified joint, Myalgia, ESR raised, Therapeutic drug monitoring * CBC W AUTO DIFFERENTIAL(Performed 03/19/2020) Performed for ESR raised, Myalgia, Arthralgia, unspecified joint * COMPREHENSIVE METABOLIC PANEL(Performed 03/19/2020) Performed for ESR raised, Myalgia, Arthralgia, unspecified joint * SS-B (SJOGREN'S) ANTIBODY(Performed 03/19/2020) Performed for ESR raised, Myalgia, Arthralgia, unspecified joint * CYCLIC CITRUL PEPTIDE ANTIBODY IGG/IGA (CCP)(Performed 03/19/2020) Performed for ESR raised, Myalgia, Arthralgia, unspecified joint * ERYTHROCYTE SEDIMENTATION RATE(Performed 03/19/2020) Performed for ESR raised, Myalgia, Arthralgia, unspecified joint * C-REACTIVE PROTEIN(Performed 03/19/2020) Performed for ESR raised, Myalgia, Arthralgia, unspecified joint * LDH BLOOD(Performed 03/19/2020) Performed for ESR raised, Myalgia, Arthralgia, unspecified joint * CK BLOOD(Performed 03/19/2020) Performed for ESR raised, Myalgia, Arthralgia, unspecified joint * ALDOLASE(Performed 03/19/2020) Performed for ESR raised, Myalgia, Arthralgia, unspecified joint * SS-A (SJOGREN'S) 52+60 ANTIBODIES(Performed 03/19/2020) Performed for ESR raised, Myalgia, Arthralgia, unspecified joint * XR KNEE LEFT 3VW(Performed 03/19/2020) Performed for ESR raised, Myalgia, Arthralgia, unspecified joint * XR SHOULDER RIGHT 2VW OR MORE(Performed 03/19/2020) Performed for ESR raised, Myalgia, Arthralgia, unspecified joint * XR SHOULDER LEFT 2VW OR MORE(Performed 03/19/2020) Performed for ESR raised, Myalgia, Arthralgia, unspecified joint * XR SPINE ENTIRE 2 OR 3VW(Performed 03/19/2020) Performed for ESR raised, Myalgia, Arthralgia, unspecified joint * CARDIAC RHYTHM STRIP ORDER(Performed 02/17/2010) * XR SPINE 1 VIEW(Performed 02/11/2010) Performed for Pain * XR CERVICAL SPINE 4 OR 5VW(Performed 01/09/2010) * MRI CERVICAL SPINE WO CONTRAST(Performed 01/09/2010) Results * C-REACTIVE PROTEIN (11/21/2021 9:06 AM CDT) Only the most recent of12 resultswithin the time period is included. C-Reactive Protein 3 0 - 10 mg/L [facility] INSURANCE BILL Blood BLOOD SPECIMEN / Unknown 11/21/2021 9:06 AM CDT 11/21/2021 Narrative Resulting Agency Comment Lab Testing performed at: [address] [id number] Elizabeth Roberts MD LAB - CHEMISTRY ORDERABLES Performing Organization Address [facility] de Phone Number [facility] [address] [place] [address] * ERYTHROCYTE SEDIMENTATION RATE (11/21/2021 9:06 AM CDT) Only the most recent of12 resultswithin the time period is included. Erythrocyte Sedimentation Rate Westergren 2 0 - 40 mm/hr [facility] INSURANCE BILL Blood BLOOD SPECIMEN / Unknown 11/21/2021 9:06 AM CDT 11/21/2021 Narrative Resulting Agency Comment Lab Testing performed at: [facility] [address] [place] [id number] Elizabeth Roberts MD LAB - HEMATOLOG Y ORDERABLES Performing Organization Address [facility] Co de Phone Number [facility] INSURANCE BILL [address] [place] [address] * CBC WITH DIFFERENTIAL (11/21/2021 9:06 AM CDT) Only the most recent of12 resultswithin the time period is included. WBC 7.4 3.4 - 10.8 x10E3/uL [facility] INSURANCE BILL RBC 4.44 3.77 - 5.28 x10E6/uL [facility] INSURANCE BILL Hemoglobin 13.9 11.1 - 15.9 g/dL [facility] INSURANCE BILL Hematocrit 41.3 34.0 - 46.6 % [facility] INSURANCE BILL MCV 93 79 - 97 fL [facility] INSURANCE BILL MCH 31.3 26.6 - 33.0 pg [facility] INSURANCE BILL MCHC 33.7 31.5 - 35.7 g/dL [facility] INSURANCE BILL RDW 12.9 11.7 - 15.4 % [facility] INSURANCE BILL Platelet Count 280 150 - 450 x10E3/uL [facility] INSURANCE BILL Granulocytes % 67 Not Estab. % [facility] INSURANCE BILL Lymphocytes % 18 Not Estab. % [facility] INSURANCE BILL Monocytes % 13 Not Estab. % [facility] INSURANCE BILL Eosinophils % 1 Not Estab. % [facility] INSURANCE BILL Basophils % 1 Not Estab. % [facility] INSURANCE BILL Immature Cells NOT NEEDED [facility] INSURANCE BILL Comment:Ancillary determined the test is not needed. Granulocytes Absolute 4.9 1.4 - 7.0 x10E3/uL [facility] INSURANCE BILL Lymphocytes Absolute 1.3 0.7 - 3.1 x10E3/uL [facility] INSURANCE BILL Monocytes Absolute 0.9 0.1 - 0.9 x10E3/uL [facility] INSURANCE BILL Eosinophils Absolute 0.1 0.0 - 0.4 x10E3/uL [facility] INSURANCE BILL Basophils Absolute 0.1 0.0 - 0.2 x10E3/uL [facility] INSURANCE BILL Immature Granulocytes 0 Not Estab. % [facility] INSURANCE BILL Immature Granulocytes Absolute 0.0 0.0 - 0.1 x10E3/uL [facility] INSURANCE BILL nRBC NOT NEEDED [facility] INSURANCE BILL Comment:Ancillary determined the test is not needed. Comment Hematology NOT NEEDED [facility] INSURANCE BILL Comment:Ancillary determined the test is not needed. Blood BLOOD SPECIMEN / Unknown 11/21/2021 9:06 AM CDT 11/21/2021 Narrative Resulting Agency Comment Lab Testing performed at: [facility] [address] [facility] [phone] Elizabeth Roberts MD LAB - HEMATOLOG Y ORDERABLES [facility] INSURANCE BILL [address] [place] [address] * (ABNORMAL) COMPREHENSIVE METABOLIC PANEL (11/21/2021 9:06 AM CDT) Only the most recent of12 resultswithin the time period is included. Glucose 109(H) 65 - 99 mg/dL [facility] INSURANCE BILL BUN 12 8 - 27 mg/dL [facility] INSURANCE BILL Creatinine 0.81 0.57 - 1.00 mg/dL [facility] INSURANCE BILL eGFR by CKD-EPI 72 >59 mL/min/1.7 3 [facility] INSURANCE BILL BUN/Creatinine Ratio 15 12 - 28 [facility] INSURANCE BILL Sodium 142 134 - 144 mmol/L [facility] INSURANCE BILL Potassium 5.0 3.5 - 5.2 mmol/L [facility] INSURANCE BILL Chloride 103 96 - 106 mmol/L [facility] INSURANCE BILL CO2 22 20 - 29 mmol/L [facility] INSURANCE BILL Calcium 9.9 8.7 - 10.3 mg/dL [facility] INSURANCE BILL Protein Total 6.8 6.0 - 8.5 g/dL [facility] INSURANCE BILL Albumin 4.6 3.6 - 4.6 g/dL [facility] INSURANCE BILL Globulin Total 2.2 1.5 - 4.5 g/dL [facility] INSURANCE BILL Albumin/Globulin Ratio 2.1 1.2 - 2.2 [facility] INSURANCE BILL Bilirubin Total 0.5 0.0 - 1.2 mg/dL [facility] INSURANCE BILL Alkaline Phosphatase 82 44 - 121 IU/L [facility] INSURANCE BILL AST 19 0 - 40 IU/L [facility] INSURANCE BILL ALT 13 0 - 32 IU/L [facility] INSURANCE BILL Blood BLOOD SPECIMEN / Unknown 11/21/2021 9:06 AM CDT 11/21/2021 Narrative Resulting Agency Comment Lab Testing performed at: [facility] [address] [facility] [phone] Elizabeth Roberts MD LAB - CHEMISTRY ORDERABLES [facility] INSURANCE BILL [address] [place] [address] * URINALYSIS REFLEX TO MICROSCOPIC NO CULTURE (08/25/2021 10:09 AM [employer]) Only the most recent of2 resultswithin the time period is included. Specific [place] UA 1.010 1.005 - 1.030 [facility] INSURANCE BILL pH UA 7.5 5.0 - 7.5 [facility] INSURANCE BILL Color UA Yellow Yellow [facility] INSURANCE BILL Appearance Clear Clear [facility] INSURANCE BILL Leukocyte UA Negative Negative [facility] INSURANCE BILL Protein UA Negative Negative/Tra ce [facility] INSURANCE BILL Glucose UA Negative Negative [facility] INSURANCE BILL Ketone UA Negative Negative [facility] INSURANCE BILL Occult Blood Urine Negative Negative [facility] INSURANCE BILL Bilirubin UA Negative Negative [facility] INSURANCE BILL Urobilinogen 0.2 0.2 - 1.0 mg/dL [facility] INSURANCE BILL Nitrite UA Negative Negative [facility] INSURANCE BILL Microscopic Examination Urine [facility] INSURANCE BILL Comment:Microscopic not gloria cated and not performed. Urine URINE SPECIMEN OBTAINED BY CLEAN CATCH PROCEDURE / Unknown 08/25/2021 10:09 AM [employer]NER 08/25/2021 Narrative Resulting Agency Comment Lab Testing performed at: [facility] [address] [facility] [phone] Elizabeth Roberts MD LAB - URINALYSI S ORDERABLES [facility] INSURANCE BILL [address] [place] [address] * URINALYSIS MICROSCOPIC ONLY REFLEXED (06/06/2021 8:44 AM [employer]NER) Only the most recent of8 resultswithin the time period is included. WBC UA None seen 0 - 5 /hpf [facility] INSURANCE BILL RBC UA None seen 0 - 2 /hpf [facility] INSURANCE BILL Epithelial Cells (non renal) None seen 0 - 10 /hpf [facility] INSURANCE BILL Epithelial Cells (renal) NOT NEEDED [facility] INSURANCE BILL Comment:Ancillary determined the test is not needed. Casts ua None seen None seen /lpf [facility] INSURANCE BILL Casts UA NOT NEEDED [facility] INSURANCE BILL Comment:Ancillary determined the test is not needed. Crystals UA NOT NEEDED [facility] INSURANCE BILL Comment:Ancillary determined the test is not needed. Crystals UA NOT NEEDED [facility] INSURANCE BILL Comment:Ancillary determined the test is not needed. Mucus UA NOT NEEDED [facility] INSURANCE BILL Comment:Ancillary determined the test is not needed. Bacteria UA None seen None seen/Few [facility] INSURANCE BILL Yeast UA NOT NEEDED [facility] INSURANCE BILL Comment:Ancillary determined the test is not needed. Trichomonas UA NOT NEEDED [facility] INSURANCE BILL Comment:Ancillary determined the test is not needed. Comment Urine NOT NEEDED [facility] INSURANCE BILL Comment:Ancillary determined the test is not needed. 06/06/2021 8:44 AM [employer]NER 06/06/2021 Narrative Resulting Agency Comment Lab Testing performed at: [facility] [address] [phone] Elizabeth Roberts MD LAB - URINALYSI S ORDERABLES [facility] INSURANCE BILL [address] [place] [address] * URINALYSIS W/MICROSCOPIC REFLEX TO CULTURE (06/06/2021 8:44 AM [employer]NER) Only the most recent of8 resultswithin the time period is included. Specific [place] UA 1.008 1.005 - 1.030 [facility] INSURANCE BILL pH UA 6.0 5.0 - 7.5 [facility] INSURANCE BILL Color UA Yellow Yellow [facility] INSURANCE BILL Appearance Clear Clear [facility] INSURANCE BILL Leukocyte UA Negative Negative [facility] INSURANCE BILL Protein UA Negative Negative/Tra ce [facility] INSURANCE BILL Glucose UA Negative Negative [facility] INSURANCE BILL Ketone UA Negative Negative [facility] INSURANCE BILL Occult Blood Urine Negative Negative [facility] INSURANCE BILL Bilirubin UA Negative Negative [facility] INSURANCE BILL Urobilinogen 0.2 0.2 - 1.0 mg/dL [facility] INSURANCE BILL Nitrite UA Negative Negative [facility] INSURANCE BILL Microscopic Examination Urine [facility] INSURANCE BILL Comment:Microscopic follows if indicated. Microscopic Examination Urine See below: [facility] INSURANCE BILL Comment:Microscopic was gloria cated and was performed. Urinalysis Reflex [facility] INSURANCE BILL Comment:This specimen will n ot reflex to a Urine Culture. 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 Urine Culture Comprehensive Final report [facility] INSURANCE BILL Result 1 [facility] INSURANCE BILL Comment: Mixed urogenital kirill 300 Colonies/mL 04/15/2021 9:00 AM CDT 04/15/2021 Narrative Resulting Agency Comment [facility] Testing performed at: [facility] [address] [facility] [phone] Elizabeth Roberts MD LAB - MICROBIOL OGY ORDERABLES Performing Organization Address [facility] Co de Phone Number [facility] INSURANCE BILL [address] [place] [address] * SS-B (SJOGREN'S) ANTIBODY (04/15/2021 8:59 AM CDT) Only the most recent of2 resultswithin the time period is included. Sjogren's Antibodies (SSB) <0.2 0.0 - 0.9 [facility] INSURANCE BILL Blood BLOOD SPECIMEN / Unknown 04/15/2021 8:59 AM CDT 04/15/2021 Narrative Resulting Agency Comment Lab Testing performed at: [facility] [address] [facility] [phone] Elizabeth Roberts MD LAB - CHEMISTRY ORDERABLES Performing Organization Address City/[facility]/ZIP Co de Phone Number [facility] INSURANCE BILL [address] [place] [address] * SS-A (SJOGREN'S) ANTIBODY (04/15/2021 8:59 AM CDT) Sjogren's Antibodies (SSA) <0.2 0.0 - 0.9 [facility] INSURANCE BILL Blood BLOOD SPECIMEN / Unknown 04/15/2021 8:59 AM CDT 04/15/2021 Narrative Resulting Agency Comment Lab Testing performed at: [facility] [address] [facility] [phone] Elizabeth Roberts MD LAB - CHEMISTRY ORDERABLES [facility] INSURANCE BILL [address] [place] [address] * (ABNORMAL) SS-A (SJOGREN'S) 52+60 ANTIBODIES (03/19/2020 5:02 PM CDT) SS-A 52 Antibody 42(H) 0 - 40 AU/mL 03/22/2020 3:00 PM CDT [facility] ([facility]) Comment: INTERPRETIVE INFORMATION: SSA-52 (Ro52) (CRISTELA) Antibody, IgG 29 AU/mL or Less ............. Negative 30 - 40 AU/mL ................ Equivocal 41 AU/mL or Greater .......... Positive SSA-52 (Ro52) and/or SSA-60 (Ro60) antibodies are associated with a diagnosis of Sjogren syndrome, systemic lupus erythematosus (SLE), and systemic sclerosis. SSA-52 antibody overlaps significantly with the major SSc-related antibodies. SSA-52 (Ro52) antibody occurs frequently in patients with inflammatory myopathies, often in the presence of interstitial lung disease. SS-A 60 Antibody 1 0 - 40 AU/mL 03/22/2020 3:00 PM CDT [facility] ([facility]) Comment: REFERENCE INTERVAL: SSA-60 (Ro60) (CRISTELA) Antibody, IgG 29 AU/mL or Less ............. Negative 30 - 40 AU/mL ................ Equivocal 41 AU/mL or Greater .......... Positive Performed By: [facility] [address] [place] [address] Baseball Inspector And Repairer: Neema Geronimo MD Blood BLOOD SPECIMEN / Unknown Lab Venipuncture / Unknown 03/19/2020 5:02 PM CDT 03/19/2020 5:44 PM CDT Elizabeth Roberts MD LAB - CHEMISTRY ORDERABLES Performing Organization Address City/[facility]/ZIP Co de Phone Number [facility] ([facility]) [address] [place] [address] * CYCLIC CITRUL PEPTIDE ANTIBODY IGG/IGA (CCP) (03/19/2020 5:02 PM CDT) CCP Antibodies IgG/IgA 5 0 - 19 units 03/22/2020 12:07 AM CDT [facility] ([facility]) Comment: Negative <20 Weak positive 20 - 39 Moderate positive 40 - 59 Strong positive >59 Blood BLOOD SPECIMEN / Unknown Lab Venipuncture / Unknown 03/19/2020 5:02 PM CDT 03/19/2020 5:44 PM CDT Narrative [facility] ([facility]) - 03/22/2020 12:07 AM CDT Performed at: [facility] [id number] Development Technical Lead: Aquilino Horton MD, Phone: [phone] Elizabeth Roberts MD LAB - SEROLOGY ORDERABLES Performing Organization Address City/[facility]/ZIP Co de Phone Number [facility] ([facility]) [address] [id number] * ALDOLASE (03/19/2020 5:02 PM CDT) Aldolase 5.5 1.5 - 8.1 U/L 03/21/2020 5:00 PM CDT [facility] ([facility]) Comment: REFERENCE INTERVAL: Aldolase Access complete set of age- and/or gender-specific reference intervals for this test in the [facility] Test Directory ([facility]). Performed By: [facility] [address] [place] [address] Baseball Inspector And Repairer: Neema Geronimo MD Blood BLOOD SPECIMEN / Unknown Lab Venipuncture / Unknown 03/19/2020 5:02 PM CDT 03/19/2020 5:44 PM CDT Elizabeth Roberts MD LAB - CHEMISTRY ORDERABLES [facility] ([facility]) [address] [place] [address], [facility] * LDH BLOOD (03/19/2020 5:02 PM CDT) LDH Total 213 125 - 243 Units/L 03/19/2020 6:[address] [facility] Blood BLOOD SPECIMEN / Unknown Lab Venipuncture / Unknown 03/19/2020 5:02 PM CDT 03/19/2020 5:44 PM CDT Elizabeth Roberts MD LAB - CHEMISTRY ORDERABLES [address] [address], [facility] [phone] * CK BLOOD (03/19/2020 5:02 PM CDT) Pathologist [facility] CK Total 78 30 - 200 Units/L 03/19/2020 6:[address] [facility] Blood BLOOD SPECIMEN / Unknown Lab Venipuncture / Unknown 03/19/2020 5:02 PM CDT 03/19/2020 5:44 PM CDT Elizabeth Roberts MD LAB - CHEMISTRY ORDERABLES Performing Organization Address City/[facility]/ZIP Co de Phone Number [address] [address], [place] [phone] * XR SPINE ENTIRE 2 OR 3VW (03/19/2020 4:52 PM CDT) Anatomical Region Laterality Modality Spine Radiographic Dionne ging 03/20/2020 7:54 AM CDT Impressions 03/20/2020 7:57 AM CDT Impression: 1. Mild thoracolumbar levoscoliosis with grade 1 anterolisthesis of L4-L5. 2. Multilevel lower lumbar spine degenerative disc disease and facet arthropathy. 3. Anterior discectomy and instrumented fusion of C3-C6. This report was electronically signed by CARLO PERRIN on 03/20/2020 7:57 AM . Narrative 03/20/2020 7:57 AM CDT Examination: XR SPINE ENTIRE 2 OR 3VW History:Scoliosis Findings: No comparisons are available. There is mild levorotoscoliosis of the thoracolumbar spine with apex at T12-L1. There is grade 1 anterolisthesis of L4 on L5. There are 12 rib-bearing thoracic vertebral bodies and 5 nonrib-bearing lumbar vertebral bodies. There is anterior discectomy and instrumented spinal fusion of C3-rC6. There is moderate multilevel lower lumbar spine degenerative disc disease and facet arthropathy. Vertebral body heights are normal. There is minimal anterior sagittal imbalance. There is no coronal imbalance or pelvic tilt. Procedure Note Carlo Perrin MD - 03/20/2020 Examination: XR SPINE ENTIRE 2 OR 3VW History:Scoliosis Findings: No comparisons are available. There is mild levorotoscoliosis of the thoracolumbar spine with apex at T12-L1. There is grade 1 anterolisthesis of L4 on L5. There are 12 rib-bearing thoracic vertebral bodies and 5 nonrib-bearing lumbar vertebral bodies. There is anterior discectomy and instrumented spinal fusion of C3-rC6. There is moderate multilevel lower lumbar spine degenerative disc disease and facet arthropathy. Vertebral body heights are normal. There is minimal anterior sagittal imbalance. There is no coronal imbalance or pelvic tilt. Impression: 1. Mild thoracolumbar levoscoliosis with grade 1 anterolisthesis ofL4-L5. 2. Multilevel lower lumbar spine degenerative disc disease and facet arthropathy. 3. Anterior discectomy and instrumented fusion of C3-C6. This report was electronically signed by CARLO PERRIN on 03/20/2020 7:57AM . Elizabeth Roberts MD DIAGNOSTIC IMAG ING ORDERABLES * XR KNEE LEFT 3VW (03/19/2020 4:52 PM CDT) Anatomical Region Laterality Modality Lower Extremity Radiographic Dionne ging 03/20/2020 7:57 AM CDT Impressions 03/20/2020 8:01 AM CDT Impression: 1. 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 2. Moderate bilateral acromioclavicular osteoarthritis. 3. Mild tricompartmental left knee osteoarthritis. This report was electronically signed by CARLO PERRIN on 03/20/2020 8:01 AM . Narrative 03/20/2020 8:01 AM CDT Examination: 1. XR SHOULDER RIGHT 2VW OR MORE 2. XR KNEE LEFT 3VW 3. XR SHOULDER LEFT 2VW OR MORE History: Joint pain Findings: Male. Right shoulder: Acromioclavicular and glenohumeral alignment is normal. There is mild glenohumeral and moderate acromioclavicular osteoarthritis. There is no acute fracture. Left shoulder: Alignment is normal. There is severe glenohumeral and moderate acromioclavicular osteoarthritis. There is no acute fracture. Left knee: Alignment is normal. There is mild tricompartmental left knee osteoarthritis. There is no acute fracture. There is no joint effusion. There is a sclerotic lesion in the distal left femur, likely a bone island. Procedure Note Carlo Perrin MD - 03/20/2020 Examination: 1. XR SHOULDER RIGHT 2VW OR MORE 2. XR KNEE LEFT 3VW 3. XR SHOULDER LEFT 2VW OR MORE History: Joint pain Findings: Male. Right shoulder: Acromioclavicular and glenohumeral alignment is normal. There is mild glenohumeral and moderate acromioclavicularosteoarthritis. There is no acute fracture. Left shoulder: Alignment is normal. There is severe glenohumeral and moderate acromioclavicular osteoarthritis. There is no acute fracture. Left knee: Alignment is normal. There is mild tricompartmental left knee osteoarthritis. There is no acute fracture. There is no joint effusion. There is a sclerotic lesion in the distal left femur, likely a bone island. Impression: 1. 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 2. Moderate bilateral acromioclavicular osteoarthritis. 3. Mild tricompartmental left knee osteoarthritis. This report was electronically signed by CARLO PERRIN on 03/20/2020 8:01AM . Elizabeth Roberts MD DIAGNOSTIC IMAG ING ORDERABLES * XR SHOULDER RIGHT 2VW OR MORE (03/19/2020 4:52 PM CDT) Anatomical Region Laterality Modality Upper Extremity Radiographic Dionne ging 03/20/2020 7:57 AM CDT Impressions 03/20/2020 8:01 AM CDT Impression: 1. 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 2. Moderate bilateral acromioclavicular osteoarthritis. 3. Mild tricompartmental left knee osteoarthritis. This report was electronically signed by CARLO PERRIN on 03/20/2020 8:01 AM . Narrative 03/20/2020 8:01 AM CDT Examination: 1. XR SHOULDER RIGHT 2VW OR MORE 2. XR KNEE LEFT 3VW 3. XR SHOULDER LEFT 2VW OR MORE History: Joint pain Findings: Male. Right shoulder: Acromioclavicular and glenohumeral alignment is normal. There is mild glenohumeral and moderate acromioclavicular osteoarthritis. There is no acute fracture. Left shoulder: Alignment is normal. There is severe glenohumeral and moderate acromioclavicular osteoarthritis. There is no acute fracture. Left knee: Alignment is normal. There is mild tricompartmental left knee osteoarthritis. There is no acute fracture. There is no joint effusion. There is a sclerotic lesion in the distal left femur, likely a bone island. Procedure Note Carlo Perrin MD - 03/20/2020 Examination: 1. XR SHOULDER RIGHT 2VW OR MORE 2. XR KNEE LEFT 3VW 3. XR SHOULDER LEFT 2VW OR MORE History: Joint pain Findings: Male. Right shoulder: Acromioclavicular and glenohumeral alignment is normal. There is mild glenohumeral and moderate acromioclavicularosteoarthritis. There is no acute fracture. Left shoulder: Alignment is normal. There is severe glenohumeral and moderate acromioclavicular osteoarthritis. There is no acute fracture. Left knee: Alignment is normal. There is mild tricompartmental left knee osteoarthritis. There is no acute fracture. There is no joint effusion. There is a sclerotic lesion in the distal left femur, likely a bone island. Impression: 1. 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 2. Moderate bilateral acromioclavicular osteoarthritis. 3. Mild tricompartmental left knee osteoarthritis. This report was electronically signed by CARLO PERRIN on 03/20/2020 8:01AM . Elizabeth Roberts MD DIAGNOSTIC IMAG ING ORDERABLES * XR SHOULDER LEFT 2VW OR MORE (03/19/2020 4:52 PM CDT) Anatomical Region Laterality Modality Upper Extremity Radiographic Dionne ging 03/20/2020 7:57 AM CDT Impressions 03/20/2020 8:01 AM CDT Impression: 1. 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 2. Moderate bilateral acromioclavicular osteoarthritis. 3. Mild tricompartmental left knee osteoarthritis. This report was electronically signed by CARLO PERRIN on 03/20/2020 8:01 AM . Narrative 03/20/2020 8:01 AM CDT Examination: 1. XR SHOULDER RIGHT 2VW OR MORE 2. XR KNEE LEFT 3VW 3. XR SHOULDER LEFT 2VW OR MORE History: Joint pain Findings: Male. Right shoulder: Acromioclavicular and glenohumeral alignment is normal. There is mild glenohumeral and moderate acromioclavicular osteoarthritis. There is no acute fracture. Left shoulder: Alignment is normal. There is severe glenohumeral and moderate acromioclavicular osteoarthritis. There is no acute fracture. Left knee: Alignment is normal. There is mild tricompartmental left knee osteoarthritis. There is no acute fracture. There is no joint effusion. There is a sclerotic lesion in the distal left femur, likely a bone island. Procedure Note Carlo Perrin MD - 03/20/2020 Examination: 1. XR SHOULDER RIGHT 2VW OR MORE 2. XR KNEE LEFT 3VW 3. XR SHOULDER LEFT 2VW OR MORE History: Joint pain Findings: Male. Right shoulder: Acromioclavicular and glenohumeral alignment is normal. There is mild glenohumeral and moderate acromioclavicularosteoarthritis. There is no acute fracture. Left shoulder: Alignment is normal. There is severe glenohumeral and moderate acromioclavicular osteoarthritis. There is no acute fracture. Left knee: Alignment is normal. There is mild tricompartmental left knee osteoarthritis. There is no acute fracture. There is no joint effusion. There is a sclerotic lesion in the distal left femur, likely a bone island. Impression: 1. 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 2. Moderate bilateral acromioclavicular osteoarthritis. 3. Mild tricompartmental left knee osteoarthritis. This report was electronically signed by CARLO PERRIN on 03/20/2020 8:01AM . Elizabeth Roberts MD DIAGNOSTIC IMAG ING ORDERABLES * CARDIAC RHYTHM STRIP ORDER (02/17/2010 1:50 PM CDT) Narrative Procedure Note Document, Scanned - 02/17/2010 10:32 AM CDT Scanned Document CARDIAC SERVICES ORD ERABLES * XR SPINE 1 VIEW (02/11/2010 2:55 PM CDT) Anatomical Region Laterality Modality Spine Radio Fluoroscop y 02/11/2010 3:20 PM CDT Narrative 02/11/2010 4:16 PM CDT Single lateral intraoperative view of the cervical spine 02/11/2010 at 1344 hours CLINICAL INFORMATION: Cervical decompression. There is intraoperative localization anteriorly at C3-C4. Procedure Note Lamin Menezes MD - 02/11/2010 Single lateral intraoperative view of the cervical spine 02/11/2010 at 1344 hours CLINICAL INFORMATION: Cervical decompression. There is intraoperative localization anteriorly at C3-C4. Jose David Scott MD DIAGNOSTIC IMAGING O RDERABLES * MRI SPINE CERVICAL NON CONTRAST (01/09/2010) Anatomical Region Laterality Modality Pelvis Other Jose David Scott MD MR ORDERABLES * XR CERVICAL SPINE MIN 4+ VW (01/09/2010) Anatomical Region Laterality Modality Spine Other Jose David Scott MD DIAGNOSTIC IMAGING O RDERABLES Care Teams Choral Director Relationship Specialty Start Date End Date Girma Craven MD [facility] - General 03/12/20
--- OUTSIDE RECORDS SUMMARY | 2024-09-05 14:05 | XMS_ITS | Clinical Summary ---
Author Organization [facility] [email or web address] Address [address] [place] [address] Care Team Providers Care Senior Pl Sql Developer Name Role Phone Girma Craven MD Primary Care Provider [phone] Source Comments [facility] [email or web address],non-owned Affiliates and Associated Physician Practices is amultiple site organization consisting of ambulatory clinics and hospital sitesin [place], [place], [place] and [place]. This disclosure is being madepursuant to the Care Everywhere program and may not contain all information available regarding this patient. Last updated 18.[facility] [email or web address] Allergies No known active allergies Medications * Be aware that medications may not be up to date on this document. Alwaysverify current medications with the patient. Medication Sig Dispensed Refills Start Date End Date Status omeprazole (PRILOSEC) 20 MG capsule Take 20 mg by mouth daily before breakfast 03/14/2020 Active niacinamide 100 MG tablet Take 100 mg by mouth once daily Active Elastic Bandages & Supports (B-3 EXTRA HIGH COMP HOSE WOMEN) MISC Active Calcium Carb-Cholecalciferol (CALCIUM 1000 + D) 1000-800 MG-UNIT Take 1 tablet by mouth once daily 06/12/2020 Active meloxicam (MOBIC) 15 MG tablet Take 15 mg by mouth once daily 09/15/2021 Active Cholecalciferol 50 MCG (2000 UT) Take 2,000 Units by mouth once daily 09/19/2021 Active aspirin (ASPIRIN) 81 MG chew tablet Take 81 mg by mouth 2 times daily 09/19/2021 Active Ascorbic Acid 500 MG Take 500 mg by mouth 2 times daily 09/19/2021 Active predniSONE (DELTASONE) 1 MG tabletIndications:PM R (polymyalgia rheumatica) (HCC) Take 1 (one) tablet by mouth once daily 60 tablet 12/22/2021 Active Active Problems Problem Noted Date Diagnosed Date Status post cervical spinal fusion 03/13/2010 Cervical spondylosis without myelopathy 02/25/20 10 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/11/2010 Resolved Problems Problem Noted Date Diagnosed Date Resolved Date Cervical spondylosis without myelopathy 01/29/2010 02/11/2010 Immunizations Name Administration Dates Next Due Covid Moderna primary monova lent 12+ yr 0.5mL 10/16/2020,09/11/2020 INFLUENZA VACCINE 05/05/2021,,06/12/2020,2016,04/04/2014 PNEUMOCOCCAL PCV7 CONJ, PEDS 04/04/2014 TDAP (7yrs+) 06/12/2020 TETANUS 07/05/2009 Family History Medical History Relation Name Comments CAD (Coronary Artery Disease) Brother CAD (Coronary Artery Disease) Sister Relation Name Status Comments Brother Sister Social History Tobacco Use Types Packs/Day Years [...] Sexual Orientation Straight 08/27/2021 12 :39 PM PLANT ATTENDANT Last Filed Vital Signs Vital Sign Reading [...] Mass Index 31.74 10/20/2021 3:49 PM CDT Plan of Treatment Health Maintenance Due Date Last Done Comments BONE DENSITY TESTING 1938 PNEUMOCOCCAL VACCINE 50+ (1 of 1 - PCV) 1988 ZOSTER VACCINE (1 of 2) 1988 Respiratory Syncytial Virus (RSV) Vaccine Pt: or over 60 yrs (1 - 1-dose 75+ series) 2013 COVID-19 VACCINE (3 - season) 2024 10/16/2020, 09/11/2020 INFLUENZA VACCINE (#1) 2024 , 09/11/2020, 06/12/2020, Additional history exists DEPRESSION SCREENING 07/05/2024 MEDICARE AWV CALENDAR YEAR 2024 DTAP/TDAP/TD VACCINES (3 - Td or Tdap) 06/12/2030 06/12/2020, 07/05/2009 HEPATITIS B VACCINE Aged Out No longe r eligible based on patient's age to complete this topic HIB VACCINE Aged Out No longer eligi ble based on patient's age to complete this topic HPV VACCINE Aged Out No longer eligi ble based on patient's age to complete this topic MENINGOCOCCAL (Group B) VACCINE Aged Out No longer eligible based on patient's age to complete this topic MENINGOCOCCAL VACCINE Aged Out No ellen kenyetta eligible based on patient's age to complete this topic Advance Directives * Full Code (Latest Code Status on File) Date Activated Date Inactivated Comments 02/11/2010 5:13 PM 02/14/2010 12:[address] Sql Developer Relationship Specialty Start Date End Date Girma Craven MD PCP - General 03/12/20
--- OUTSIDE RECORDS SUMMARY | 2024-09-05 14:05 | XMS_ITS | CONTINUITY OF CARE DOCUMENT ---
Author Name galileo gurrola Address Unknown Organization [facility] Address [address] [place] [address] Phone [phone] Care Team Providers Care Nipple Threader Name Role Phone Juan TIERNEY, Anastasiia Unavailable [phone] SUKH FLOYD MD Unavailable SUKH FLOYD MD Unavailable PROBLEMS Condition Status Date Provider Notes HYPERTENSION, ESSENTIAL active Anastasiia Martinez MD CHEST PAIN,NORMAL CORONARIES active ? Anastasiia Martinez MD ENCOUNTERS Date Type Provider Location Encounter Diagnosis - In-person encounter Office Visit Anastasiia Martinez MD [facility] - In-person encounter Office Visit [facility] [place] [facility] - In-person encounter Office Visit Anastasiia Martinez MD [facility] CHEST PAIN,NORMAL CORONARIESHYPERTEN EVELYN, ESSENTIAL VITAL SIGNS Date Observation Value Provider blood pressure, diastolic 72 mm[Hg] Da aiden Martin blood pressure, systolic 134 mm[Hg] John Martin pulse rate 73 /min Kiesha Martin oxygen saturation, oximetry 94 % Kiesha Martin respiratory rate E&M 18 /min Francisco Martin weight E&M 172 [lb_av] Kiesha Martin blood pressure, diastolic 72 mm[Hg] Mely Brown MA blood pressure, systolic 124 mm[Hg] Enedina Brown MA pulse rate 86 /min Archana Brown MA oxygen saturation, oximetry 94 % Archana Brown DIONISIO respiratory rate E&M 16 /min Archana Brown DIONISIO weight E&M 164 [lb_av] Archana Brown MA blood pressure, diastolic 62 mm[Hg] Mely Brown MA blood pressure, systolic 148 mm[Hg] Enedina Brown MA pulse rate 62 /min Archana Brown MA oxygen saturation, oximetry 98 % Archana Brown MA respiratory rate E&M 16 /min Archana Brown MA weight E&M 168 [lb_av] Archana Brown DIONISIO ALLERGIES No Known Drug Allergies HISTORY OF MEDICATION USE Medication Status Instructions Dates Provider Indications Com ments VITAMIN D CAPS completed once daily - Kiesha Martin ASPIRIN 81 MG ORAL TABLET active ONE TAB. DAILY Archana Brown MA TOPROL XL 50 MG ORAL TABLET EXTENDED RELEASE 24 HOUR completed ONE TAB DAILY - Kiesha Martin SOCIAL HISTORY Date Observation Value Provider social history reviewed E&M reviewed Anastasiia Martinez MD social history reviewed E&M reviewed Anastasiia Martinez MD social history E&M L laura with family/friends E thnicity: Anastasiia Martinez MD drug use none Anastasiia Martinez MD physical exercise, f requency, days per week yes Archana Brown MA caffeine use, averag e drinks per day yes Archanadhruv Brown MA alcohol use, average drinks per day none Archana Kevin NICHOLE smoking status Non-Smoker Archana Ponchowenceslao stokes MA social history reviewed E&M reviewed Archana Brown MA MENTAL STATUS Date Observation Value Provider assessment of judgme nt and insight E&M Alert and oriented to time, place and person. Mood and affect are normal. Anastasiia Martinez MD assessment of judgme nt and insight E&M Alert and oriented to time, place and person. Mood and affect are normal. Anastasiia Martinez MD assessment of judgme nt and insight E&M Alert and oriented to time, place and person. Mood and affect are normal. Anastasiia Martinez MD INSURANCE PROVIDERS Payer name Policy type / Coverage type [employer] party ID [facility] [id number] TREATMENT PLAN Date Name Performer echo and f/u: T he following medications were removed from the medication list: Toprol Xl 50 Mg Tb24 (Metoprolol succinate) ..... One tab daily Her updated medication list for this problem includes: Aspirin 81 Mg Tabs (Aspirin) ..... One tab. daily BP today: 134/72 Prior BP: 124/72 (10/12/2008) C ardiac Cath: EF - 65-70%. N o coronary artery disease angiographically. V kaley tortuous coronary vessels consistent with possible h/o systemic hypertension. V kaley high and vertical take off of left main coronary artery but without disesae angiographically. Hyperdynamic LV sysotlic function. L ow LVEDP consistent with mild hypovolemia. [facility] (06/04/2008) E chocardiogram: Normal LV systolic function. B orderline LVH. Diastolic dysfunction. T rivial mitral regurgitation. [facility] (06/01/2008) Anastasiia Martinez MD echo and f/u: T he following medications were removed from the medication list: Toprol Xl 50 Mg Tb24 (Metoprolol succinate) ..... One tab daily Her updated medication list for this problem includes: Aspirin 81 Mg Tabs (Aspirin) ..... One tab. daily BP today: 134/72 P rior BP: 124/72 (10/12/2008) Anastasiia Martinez MD FU: H er updated medication list for this problem includes: Toprol Xl 50 Mg Tb24 (Metoprolol succinate) ..... One tab daily Aspirin 81 Mg Tabs (Aspirin) ..... One tab. daily BP today: 124/72 P rior BP: 148/62 (06/22/2008) Anastasiia Martinez MD FU: H er updated medication list for this problem includes: Toprol Xl 50 Mg Tb24 (Metoprolol succinate) ..... One tab daily Aspirin 81 Mg Tabs (Aspirin) ..... One tab. daily BP today: 124/72 Prior BP: 148/62 (06/22/2008) C ardiac Cath: EF - 65-70%. N o coronary artery disease angiographically. V kaley tortuous coronary vessels consistent with possible h/o systemic hypertension. V kaley high and vertical take off of left main coronary artery but without disesae angiographically. H yperdynamic LV sysotlic function. L ow LVEDP consistent with mild hypovolemia. [facility] (06/04/2008) E chocardiogram: Normal LV systolic function. B orderline LVH. D iastolic dysfunction. T rivial mitral regurgitation. [facility] (06/01/2008) Anastasiia Martinez MD New Patient: CP nl c ors on cath : H er updated medication list for this problem includes: Toprol Xl 25 Mg Tb24 (Metoprolol succinate) ..... One tab daily BP today: 148/62 Anastasiia Martinez MD New Patient: CP nl c ors on cath : H er updated medication list for this problem includes: Toprol Xl 25 Mg Tb24 (Metoprolol succinate) ..... One tab daily BP today: 148/62 Prior BP: / () Anastasiia Martinez MD
--- OUTSIDE RECORDS SUMMARY | 2024-09-05 14:05 | XMS_ITS | Referral Summary ---
Author Organization [email or web address] Address [address] [place] [address] Care Team Providers Care Chart Computer Name Role Phone Girma Craven MD Primary Care Provider Source Comments [email or web address],non-owned Affiliates and Associated Physician Practices is amultiple site organization consisting of ambulatory clinics and hospital sitesin [place], [place], [place] and [place]. This disclosure is being madepursuant to the Care Everywhere program and may not contain all information available regarding this patient. Last updated 18.[email or web address] Allergies No known active allergies Medications * [...] PEDS 04/04/2014 TDAP (7yrs+) 06/12/2020 TETANUS 07/05/2009 Social History Tobacco Use Types Packs/Day Years [...] Sexual Orientation Straight 08/27/2021 12 :39 PM PODIATRIC MEDICINE DOCTOR Last Filed Vital Signs Vital Sign Reading [...] 10/20/2021 3:49 PM CDT Plan of Treatment Not on file Advance Directives * Full Code (Latest Code Status on File) Date Activated Date Inactivated Comments 02/11/2010 5:13 PM 02/14/2010 12:18 AM Care Teams Chart Computer Relationship Specialty Start Date End Date Girma Craven MD PCP - General 03/12/20
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
--- OUTSIDE RECORDS SUMMARY | 2024-09-05 14:06 | XMS_ITS | Data Portability ---
Author Organization [facility] [place] Address [address] [facility] [place] [address] Care Team Providers Care Content Coordinator Name Role Phone [facility] Primary Care Provider Assessment No assessment recorded. Plan of Treatment Reminders Order Date Submit Date Provider Last Modified By Organization Details Last Modified Time Details Appointments ANY 15 2024 09:00A M JOE García Not available Not available Not available Lab HbA1c (hemoglob in A1c), blood 2023 025 [facility], [address] [facility], [facility] [address], [place], [address], 07/28/2024 07:09:51 hepatic function panel, serum 2023 025 [facility], [address] [facility], [facility] [address], [place], [address], 07/28/2024 07:09:49 BMP, serum or plasma 2023 025 [facility], [address] [facility], [facility] [address], [place], [address], 07/28/2024 07:09:50 CBC w/ auto diff 2023 025 [facility], [address] [facility], [facility] [address], [place], [address], 07/28/2024 07:09:52 lipid panel, serum 2023 024 [facility], [facility], [facility] [address], [place], [address], 01/25/2024 12:37:08 HbA1c (hemoglob in A1c), blood 2023 024 [facility], [address] [place] [address] 2, [place], [address], 01/25/2024 12:37:11 hepatic function panel, serum 2023 024 [facility], [address] [place] [address] 2, [place], [address], 01/25/2024 12:37:10 BMP, serum or plasma 2023 024 [facility], [address] [place] [address] 2, [place], [address], 01/25/2024 12:37:10 unlisted lab - T4, free 2023 024 [facility], [address] [place] [address] 2, [place], [address], 01/25/2024 12:37:09 TSH, ultra-sen sitive, serum 2023 024 [facility], [address] [place] [address] 2, [place], [address], 01/25/2024 12:37:11 CBC w/ auto diff 2023 024 [facility], [address] [place] [address] 2, [place], [address], 01/25/2024 12:37:12 Referral orthopedi c surgeon referral 2023 024 [facility], [address], [place], [address], 05/03/2024 13:37:37 Procedures None recorded. Surgeries None recorded. Imaging CT, chest, w/o contrast 2023 024 [facility] (Imaging), [address], [place], [address], 05/12/2024 12:41:04 FL, modified barium swallow study 2023 024 [facility] (Imaging), [address], [place], [address], 05/11/2024 16:24:16 Medication Orders None recorded. Patient TargetsNo targets recorded. Patient Instructions Encounter Date Encounter Id Patient Instructions Last Modified By Organization Details Last Modified Time 05/02/2024 [id number] A healthy lifestyle: care instructions [email or web address] Not available 05/02/2024 12:58:38 Reason for Referral Orthopedic Surgeon Referral for Pain of right shoulder joint Referring Physician: Nancy Corrigan, Internal Medicine, Encounter Date: 05/02/2024 Results Created Date Observation Date Name Description Value Unit Range Abnormal Flag Note LastModifiedBy Organization Detail LastModifiedTime 01/24/20 24 01/25/2024 LIPID PANEL cholesterol, total 171 mg/dL 100-19 9 Not Available [facility] ([facility]) [address], [place], [address], 01/25/2024 12:37:08 01/24/20 24 01/25/2024 LIPID PANEL triglyceride s 146 mg/dL 0-149 Not Available [facility] ([facility]) [address], [place], [address], 01/25/2024 12:37:08 01/24/20 24 01/25/2024 LIPID PANEL HDL cholesterol 41 mg/dL >39 Not Available [facility] ([facility]) [address] [place], [address], 01/25/2024 12:37:08 01/24/20 24 01/25/2024 LIPID PANEL VLDL cholesterol peg 26 mg/dL 5-40 Not Available [facility] ([facility]) [address] [place], [address], 01/25/2024 12:37:08 01/24/20 24 01/25/2024 LIPID PANEL LDL chol calc ([facility]) 104 mg/dL 0-99 above high normal Not Available [facility] ([facility]) [address] [place], [address], 01/25/2024 12:37:08 01/24/20 24 01/25/2024 T4, FREE T4,free(dire ct) 1.38 NG/dL 0.82-1 .77 Not Available [facility] ([facility]) [address] [place], [address], 01/25/2024 12:37:09 01/24/20 24 01/25/2024 HEPAT IC FUNCT ION PANEL (7) protein, total 6.4 g/dL 6.0-8. 5 Not Available [facility] ([facility]) [address] [place], [address], 01/25/2024 12:37:10 01/24/20 24 01/25/2024 HEPAT IC FUNCT ION PANEL (7) albumin 4.3 g/dL 3.7-4. 7 Not Available [facility] ([facility]) [address] [place], [address], 01/25/2024 12:37:10 01/24/20 24 01/25/2024 HEPAT IC FUNCT ION PANEL (7) bilirubin, total 0.5 mg/dL 0.0-1. 2 Not Available [facility] ([facility]) [address] [place], [address], 01/25/2024 12:37:10 01/24/20 24 01/25/2024 HEPAT IC FUNCT ION PANEL (7) bilirubin, direct 0.13 mg/dL 0.00-0 .40 Not Available [facility] ([facility]) [address] [place], [address], 01/25/2024 12:37:10 01/24/20 24 01/25/2024 HEPAT IC FUNCT ION PANEL (7) alkaline phosphatase 91 IU/L 44-121 Not Available [facility] ([facility]) [address] [place], [address], 01/25/2024 12:37:10 01/24/20 24 01/25/2024 HEPAT IC FUNCT ION PANEL (7) AST (SGOT) 21 IU/L 0-40 Not Available [facility] ([facility]) [address] [place], [address], 01/25/2024 12:37:10 01/24/20 24 01/25/2024 HEPAT IC FUNCT ION PANEL (7) ALT (SGPT) 11 IU/L 0-32 Not Available [facility] ([facility]) [address] [place], [address], 01/25/2024 12:37:10 01/24/20 24 01/25/2024 BMP7+ EGFR glucose 103 mg/dL 70-99 above high normal Not Available [facility] ([facility]) [address] [place], [address], 01/25/2024 12:37:10 01/24/20 24 01/25/2024 BMP7+ EGFR BUN 19 mg/dL 8-27 Not Available [facility] ([facility]) [address] [place], [address], 01/25/2024 12:37:10 01/24/20 24 01/25/2024 BMP7+ EGFR creatinine 1.06 mg/dL 0.57-1 .00 above high normal Not Available [facility] ([facility]) [address] [place], [address], 01/25/2024 12:37:10 01/24/20 24 01/25/2024 BMP7+ EGFR eGFR 51 mL/mi n/1.7 3 >59 below low normal Not Available [facility] ([facility]) [address] [place], [address], 01/25/2024 12:37:10 01/24/20 24 01/25/2024 BMP7+ EGFR sodium 136 mmol/ L 134-14 4 Not Available [facility] ([facility]) [address] [place], [address], 01/25/2024 12:37:10 01/24/20 24 01/25/2024 BMP7+ EGFR potassium 5.5 mmol/ L 3.5-5. 2 above high normal Not Available [facility] ([facility]) [address] [place], [address], 01/25/2024 12:37:10 01/24/20 24 01/25/2024 BMP7+ EGFR chloride 100 mmol/ L 96-106 Not Available [facility] ([facility]) [address] [place], [address], 01/25/2024 12:37:10 01/24/20 24 01/25/2024 BMP7+ EGFR carbon dioxide, total 24 mmol/ L 20-29 Not Available [facility] ([facility]) [address] [place], [address], 01/25/2024 12:37:10 01/24/20 24 01/25/2024 HEMOG LOBIN A1C hemoglobin A1C 6.2 % 4.8-5. 6 above high normal Predi abete s: 5.7 - 6.4 Diabe dawson: >6.4 Glyce malini contr ol for adult s with diabe dawson: <7.0 Not Available [facility] ([facility]) [address] [place], [address], 01/25/2024 12:37:11 01/24/20 24 01/25/2024 TSH TSH 4.310 uIU/m L 0.450- 4.500 Not Available [facility] ([facility]) [address] [place], [address], 01/25/2024 12:37:11 01/24/20 24 01/25/2024 CBC WITH DIFFE RENTI AL/PL ATELE T WBC 7.6 x10e3 /uL 3.4-10 .8 Not Available [facility] ([facility]) [address], [place], [address], 01/25/2024 12:37:12 01/24/20 24 01/25/2024 CBC WITH DIFFE RENTI AL/PL ATELE T RBC 4.38 x10e6 /uL 3.77-5 .28 Not Available [facility] ([facility]) [address] [place], [address], 01/25/2024 12:37:12 01/24/20 24 01/25/2024 CBC WITH DIFFE RENTI AL/PL ATELE T hemoglobin 13.0 g/dL 11.1-1 5.9 Not Available [facility] ([facility]) [address] [place], [address], 01/25/2024 12:37:12 01/24/20 24 01/25/2024 CBC WITH DIFFE RENTI AL/PL ATELE T hematocrit 40.5 % 34.0-4 6.6 Not Available [facility] ([facility]) [address] [place], [address], 01/25/2024 12:37:12 01/24/20 24 01/25/2024 CBC WITH DIFFE RENTI AL/PL ATELE T MCV 93 fL 79-97 Not Available [facility] ([facility]) [address] [place], [address], 01/25/2024 12:37:12 01/24/20 24 01/25/2024 CBC WITH DIFFE RENTI AL/PL ATELE T MCH 29.7 pg 26.6-3 3.0 Not Available [facility] ([facility]) [address] [place], [address], 01/25/2024 12:37:12 01/24/20 24 01/25/2024 CBC WITH DIFFE RENTI AL/PL ATELE T MCHC 32.1 g/dL 31.5-3 5.7 Not Available [facility] ([facility]) [address], [place], [address], 01/25/2024 12:37:12 01/24/20 24 01/25/2024 CBC WITH DIFFE RENTI AL/PL ATELE T RDW 13.3 % 11.7-1 5.4 Not Available [facility] ([facility]) [address], [place], [address], 01/25/2024 12:37:12 01/24/20 24 01/25/2024 CBC WITH DIFFE RENTI AL/PL ATELE T platelets 304 x10e3 /uL 150-45 0 Not Available [facility] ([facility]) [address], [place], [address], 01/25/2024 12:37:12 01/24/20 24 01/25/2024 CBC WITH DIFFE RENTI AL/PL ATELE T neutrophils 65 % notest ab. Not Available [facility] ([facility]) [address], [place], [address], 01/25/2024 12:37:12 01/24/20 24 01/25/2024 CBC WITH DIFFE RENTI AL/PL ATELE T lymphs 19 % notest ab. Not Available [facility] ([facility]) [address], [place], [address], 01/25/2024 12:37:12 01/24/20 24 01/25/2024 CBC WITH DIFFE RENTI AL/PL ATELE T monocytes 12 % notest ab. Not Available [facility] ([facility]) [address], [place], [address], 01/25/2024 12:37:12 01/24/20 24 01/25/2024 CBC WITH DIFFE RENTI AL/PL ATELE T eos 3 % notest ab. Not Available [facility] ([facility]) [address] [place], [address], 01/25/2024 12:37:12 01/24/20 24 01/25/2024 CBC WITH DIFFE RENTI AL/PL ATELE T basos 1 % notest ab. Not Available [facility] ([facility]) [address], [place], [address], 01/25/2024 12:37:12 01/24/20 24 01/25/2024 CBC WITH DIFFE RENTI AL/PL ATELE T neutrophils (absolute) 5.0 x10e3 /uL 1.4-7. 0 Not Available [facility] ([facility]) [address] [place], [address], 01/25/2024 12:37:12 01/24/20 24 01/25/2024 CBC WITH DIFFE RENTI AL/PL ATELE T lymphs (absolute) 1.4 x10e3 /uL 0.7-3. 1 Not Available [facility] ([facility]) [address] [place], [address], 01/25/2024 12:37:12 01/24/20 24 01/25/2024 CBC WITH DIFFE RENTI AL/PL ATELE T monocytes(ab solute) 0.9 x10e3 /uL 0.1-0. 9 Not Available [facility] ([facility]) [address] [place], [address], 01/25/2024 12:37:12 01/24/20 24 01/25/2024 CBC WITH DIFFE RENTI AL/PL ATELE T eos (absolute) 0.2 x10e3 /uL 0.0-0. 4 Not Available [facility] ([facility]) [address] [place], [address], 01/25/2024 12:37:12 01/24/20 24 01/25/2024 CBC WITH DIFFE RENTI AL/PL ATELE T baso (absolute) 0.1 x10e3 /uL 0.0-0. 2 Not Available [facility] ([facility]) [address] [place], [address], 01/25/2024 12:37:12 01/24/20 24 01/25/2024 CBC WITH DIFFE RENTI AL/PL ATELE T immature granulocytes 0 % notest ab. Not Available [facility] ([facility]) [address] [place], [address], 01/25/2024 12:37:12 01/24/20 24 01/25/2024 CBC WITH DIFFE RENTI AL/PL ATELE T immature grans (abs) 0.0 x10e3 /uL 0.0-0. 1 Not Available [facility] ([facility]) [address], [place], [address], 01/25/2024 12:37:12 07/27/1907/28/2024 HEPAT IC FUNCT ION PANEL (7) protein, total 6.8 g/dL 6.0-8. 5 Not Available [facility] ([facility]) [address] [place], [address], 07/28/2024 07:09:48 07/27/19 25 07/28/2024 HEPAT IC FUNCT ION PANEL (7) albumin 4.6 g/dL 3.7-4. 7 Not Available [facility] ([facility]) [address] [place], [address], 07/28/2024 07:09:48 07/27/19 25 07/28/2024 HEPAT IC FUNCT ION PANEL (7) bilirubin, total 0.5 mg/dL 0.0-1. 2 Not Available [facility] ([facility]) [address] [place], [address], 07/28/2024 07:09:48 07/27/19 25 07/28/2024 HEPAT IC FUNCT ION PANEL (7) bilirubin, direct 0.15 mg/dL 0.00-0 .40 Not Available [facility] ([facility]) [address] [place], [address], 07/28/2024 07:09:48 07/27/19 25 07/28/2024 HEPAT IC FUNCT ION PANEL (7) alkaline phosphatase 84 IU/L 44-121 Not Available [facility] ([facility]) [address] [place], [address], 07/28/2024 07:09:48 07/27/19 25 07/28/2024 HEPAT IC FUNCT ION PANEL (7) AST (SGOT) 16 IU/L 0-40 Not Available [facility] ([facility]) [address] [place], [address], 07/28/2024 07:09:48 07/27/19 25 07/28/2024 HEPAT IC FUNCT ION PANEL (7) ALT (SGPT) 14 IU/L 0-32 Not Available [facility] ([facility]) [address] [place], [address], 07/28/2024 07:09:48 07/27/19 25 07/28/2024 BMP7+ EGFR glucose 107 mg/dL 70-99 above high normal Not Available [facility] ([facility]) [address] [place], [address], 07/28/2024 07:09:50 07/27/19 25 07/28/2024 BMP7+ EGFR BUN 19 mg/dL 8-27 Not Available [facility] ([facility]) [address] [place], [address], 07/28/2024 07:09:50 07/27/19 25 07/28/2024 BMP7+ EGFR creatinine 1.02 mg/dL 0.57-1 .00 above high normal Not Available [facility] ([facility]) [address] [place], [address], 07/28/2024 07:09:50 07/27/19 25 07/28/2024 BMP7+ EGFR eGFR 54 mL/mi n/1.7 3 >59 below low normal Not Available [facility] ([facility]) [address] [place], [address], 07/28/2024 07:09:50 07/27/19 25 07/28/2024 BMP7+ EGFR sodium 134 mmol/ L 134-14 4 Not Available [facility] ([facility]) [address] [place], [address], 07/28/2024 07:09:50 07/27/19 25 07/28/2024 BMP7+ EGFR potassium 5.0 mmol/ L 3.5-5. 2 Not Available [facility] ([facility]) [address] [place], [address], 07/28/2024 07:09:50 07/27/19 25 07/28/2024 BMP7+ EGFR chloride 98 mmol/ L 96-106 Not Available [facility] ([facility]) [address] [place], [address], 07/28/2024 07:09:50 07/27/19 25 07/28/2024 BMP7+ EGFR carbon dioxide, total 22 mmol/ L 20-29 Not Available [facility] ([facility]) [address] [place], [address], 07/28/2024 07:09:50 07/27/19 25 07/28/2024 HEMOG LOBIN A1C hemoglobin A1C 6.1 % 4.8-5. 6 above high normal Predi abete s: 5.7 - 6.4 Diabe dawson: >6.4 Glyce malini contr ol for adult s with diabe dawson: <7.0 Not Available [facility] ([facility]) [address], [place], [address], 07/28/2024 07:09:51 07/27/19 25 07/27/2024 CBC WITH DIFFE RENTI AL/PL ATELE T WBC 7.6 x10e3 /uL 3.4-10 .8 Not Available [facility] ([facility]) [address], [place], [address], 07/28/2024 07:09:52 07/27/19 25 07/27/2024 CBC WITH DIFFE RENTI AL/PL ATELE T RBC 4.40 x10e6 /uL 3.77-5 .28 Not Available [facility] ([facility]) [address], [place], [address], 07/28/2024 07:09:52 07/27/19 25 07/27/2024 CBC WITH DIFFE RENTI AL/PL ATELE T hemoglobin 13.2 g/dL 11.1-1 5.9 Not Available [facility] ([facility]) [address], [place], [address], 07/28/2024 07:09:52 07/27/19 25 07/27/2024 CBC WITH DIFFE RENTI AL/PL ATELE T hematocrit 41.8 % 34.0-4 6.6 Not Available [facility] ([facility]) [address], [place], [address], 07/28/2024 07:09:52 07/27/19 25 07/27/2024 CBC WITH DIFFE RENTI AL/PL ATELE T MCV 95 fL 79-97 Not Available [facility] ([facility]) [address], [place], [address], 07/28/2024 07:09:52 07/27/19 25 07/27/2024 CBC WITH DIFFE RENTI AL/PL ATELE T MCH 30.0 pg 26.6-3 3.0 Not Available [facility] ([facility]) [address], [place], [address], 07/28/2024 07:09:52 07/27/19 25 07/27/2024 CBC WITH DIFFE RENTI AL/PL ATELE T MCHC 31.6 g/dL 31.5-3 5.7 Not Available [facility] ([facility]) [address], [place], [address], 07/28/2024 07:09:52 07/27/19 25 07/27/2024 CBC WITH DIFFE RENTI AL/PL ATELE T RDW 12.4 % 11.7-1 5.4 Not Available [facility] ([facility]) [address] [place], [address], 07/28/2024 07:09:52 07/27/19 25 07/27/2024 CBC WITH DIFFE RENTI AL/PL ATELE T platelets 358 x10e3 /uL 150-45 0 Not Available [facility] ([facility]) [address], [place], [address], 07/28/2024 07:09:52 07/27/19 25 07/27/2024 CBC WITH DIFFE RENTI AL/PL ATELE T neutrophils 66 % notest ab. Not Available [facility] ([facility]) [address] [place], [address], 07/28/2024 07:09:52 07/27/19 25 07/27/2024 CBC WITH DIFFE RENTI AL/PL ATELE T lymphs 20 % notest ab. Not Available [facility] ([facility]) [address] [place], [address], 07/28/2024 07:09:52 07/27/19 25 07/27/2024 CBC WITH DIFFE RENTI AL/PL ATELE T monocytes 11 % notest ab. Not Available [facility] ([facility]) [address] [place], [address], 07/28/2024 07:09:52 07/27/19 25 07/27/2024 CBC WITH DIFFE RENTI AL/PL ATELE T eos 2 % notest ab. Not Available [facility] ([facility]) [address], [place], [address], 07/28/2024 07:09:52 07/27/19 25 07/27/2024 CBC WITH DIFFE RENTI AL/PL ATELE T basos 1 % notest ab. Not Available [facility] ([facility]) [address], [place], [address], 07/28/2024 07:09:52 07/27/19 25 07/27/2024 CBC WITH DIFFE RENTI AL/PL ATELE T neutrophils (absolute) 4.9 x10e3 /uL 1.4-7. 0 Not Available [facility] ([facility]) [address], [place], [address], 07/28/2024 07:09:52 07/27/19 25 07/27/2024 CBC WITH DIFFE RENTI AL/PL ATELE T lymphs (absolute) 1.5 x10e3 /uL 0.7-3. 1 Not Available [facility] ([facility]) [address] [place], [address], 07/28/2024 07:09:52 07/27/19 25 07/27/2024 CBC WITH DIFFE RENTI AL/PL ATELE T monocytes(ab solute) 0.9 x10e3 /uL 0.1-0. 9 Not Available [facility] ([facility]) [address] [place], [address], 07/28/2024 07:09:52 07/27/19 25 07/27/2024 CBC WITH DIFFE RENTI AL/PL ATELE T eos (absolute) 0.2 x10e3 /uL 0.0-0. 4 Not Available [facility] ([facility]) [address], [place], [address], 07/28/2024 07:09:52 07/27/19 25 07/27/2024 CBC WITH DIFFE RENTI AL/PL ATELE T baso (absolute) 0.1 x10e3 /uL 0.0-0. 2 Not Available [facility] ([facility]) [address], [place], [address], 07/28/2024 07:09:52 07/27/19 25 07/27/2024 CBC WITH DIFFE RENTI AL/PL ATELE T immature granulocytes 0 % notest ab. Not Available [facility] ([facility]) [address], [place], [address], 07/28/2024 07:09:52 07/27/19 25 07/27/2024 CBC WITH DIFFE RENTI AL/PL ATELE T immature grans (abs) 0.0 x10e3 /uL 0.0-0. 1 Not Available [facility] ([facility]) [address], [place], [address], 07/28/2024 07:09:52 09/05/19 25 09/04/2024 rapid strep group A, throa t Strep negati ve Not Available In-Office Order Internal Use Only DO Not Attach Compendium DO Not Attach Compendium, Do Not Delete/merge, [id number] 09/04/2024 17:39:33 09/05/19 25 09/04/2024 influ paulino virus A + B + SARS- CoV-2 (COVI D19) Ag panel , rapid IA, upper respi rator y speci men Flu A positi ve Not Available In-Office Order Internal Use Only DO Not Attach Compendium DO Not Attach Compendium, Do Not Delete/merge, [id number] 09/04/2024 17:38:22 09/05/19 25 09/04/2024 influ paulino virus A + B + SARS- CoV-2 (COVI D19) Ag panel , rapid IA, upper respi rator y speci men Flu B negati ve Not Available In-Office Order Internal Use Only DO Not Attach Compendium DO Not Attach Compendium, Do Not Delete/merge, [id number] 09/04/2024 17:38:22 09/05/19 25 09/04/2024 influ paulino virus A + B + SARS- CoV-2 (COVI D19) Ag panel , rapid IA, upper respi rator y speci men Rapid SARS CoV 2 Ag, QL IA, respiratory specimen negati ve Not Available In-Office Order Internal Use Only DO Not Attach Compendium DO Not Attach Compendium, Do Not Delete/merge, [id number] 09/04/2024 17:38:22 05/09/20 24 05/09/2024 [place], modif ied ric sumner ow study No observ ation record ed. [facility] (Imaging) [address] [place] [address] [place] [address], [phone], 09/04/2024 09:21:35 05/15/20 24 05/15/2024 FL, modif ied ric sumner ow study No observ ation record ed. [address] [address], [place], [address], 05/15/2024 21:05:25 09/05/[address], chest , w/o contr ast No observ ation record ed. [facility] (Imaging) [address] [place] [address] [place] [address], [phone], 09/04/2024 09:21:35 Result Notes None recorded. Problems Name Problem SNOMED Code Status Onset Date Resolution Date Notes Provider Name and Address Organization Details Recorded Time Benign essential hypertensio n 1541574 Active 2023 JOE García Attn: Lynne begum,[address] [facility], [place], [address], [facility] 11:48:14 Polymyalgia rheumatica 39611803 Active 2023 JOE García Attn: Lynne begum,[address] [facility], [place], [address], [place] [facility] 4 11:48:15 Multiple joint pain 13785192 Active 2023 JOE García Attn: Accounturiel g,[address] [facility], [place], [address], [place] [facility] 4 11:48:16 Blood glucose outside reference range 961960541 Active 2023 JOE García Attn: Accountin g,[address] [facility], [place], [address], [place] [facility] 4 11:48:25 Body mass index 30+ - obesity 876263247 Active 2023 Zenaida Lenz [place] null, [place] [facility] 4 12:33:03 Long-term drug therapy Active 2023 JOE García Attn: Lynne g,[address] [place], [address], [place] [facility] 4 22:03:35 Gastroesoph ageal reflux disease without esophagitis 653806505 Active 2023 JOE García Attn: Accountin g,[address] [place], [address], [place] [facility] 4 22:03:38 Overweight 507305759 Active 2023 JOE García Attn: Accountin g,[address] [place], [address], [place] [facility] 4 22:03:41 Prediabetes 825465646 Active 2023 JOE García Attn: Accountin g,[address] [place], [address], [place] [facility] 4 22:04:19 Pain of right shoulder joint [id number] 9100 Active 2023 JOE García Attn: Accountin g,[address] [place], [address], [place] [facility] 4 22:04:44 Persistent cough 762970239 Active 2023 JOE García Attn: Lynne begum,[address], [place], [address], [place] [facility] 4 22:05:08 Difficulty swallowing 507486180 Active 2023 JOE García Attn: Lynne begum,[address], [place], [address], [place] [facility] 4 22:05:26 Problem Notes None recorded. Procedures Surgical History Date Name Laterality Status Provider Name and Address Organization Details Recorded Time Back Surgery completed Zenaida Lenz [place] [facility] 11/02/2023 12:24:51 Eye Surgery completed Zenaida Lenz [place] [facility] 11/02/2023 12:24:56 Joint Replacement completed Zenaida Lenz [place] [facility] 11/02/2023 12:25:00 Knee Surgery completed Zenaida Lenz [place] [facility] 11/02/2023 12:25:05 Tonsillectomy completed Zenaida Lenz [place] [facility] 11/02/2023 12:25:10 Imaging Results Imaging Date Name Status LastModified by [facility] Details LastModified Time 05/09/2024 [place], modified barium swallow study completed [facility] (Imaging) [address] [place] [address], [phone], 09/04/2024 09:21:35 05/15/2024 [place], modified barium swallow study completed [address], [address], 05/15/2024 21:05:25 09/04/2024 CT, chest, w/o contrast completed [facility] (Imaging) [address] [place], [place] [address]e [address] [place] [address], [phone], 09/04/2024 09:21:35 Procedure Notes None recorded. Medical Equipment None Reported. Allergies No known drug allergies Medications Name Sig Start Date Stop Date Status Note LastModified by Organization Details LastModified Time azithromycin 250 mg tablet TAKE 2 TABLETS (500 MG) BY ORAL ROUTE ONCE DAILY FOR 1 DAY THEN 1 TABLET (250 MG) BY ORAL ROUTE ONCE DAILY FOR 4 DAYS 2024 active Not Available Not Available Not Avai lable meloxicam 15 mg tablet 1 tab p.o. daily with meal as needed active Not Available Not Available No t Available prednisone 20 mg tablet Take 2 tablets every day by oral route for 5 days. 2024 active Not Available Not Available Not Avai lable Tamiflu 75 mg capsule Take 1 capsule twice a day by oral route. 2024 active Not Available Not Available Not Avai lable valsartan 320 mg tablet 1 tab p.o. [...] % 97 % 73 /min 32.3 kg/m2 98310.5 8 g 132 mm[Hg] 82 mm[Hg] Zenaida Lenz MA [facility] 12:08:51 Date Recorded Systolic blood pressure Diastolic blood pressure Provider Name and Address Organization Details Last Updated DateTime 11/02/2023 134 mm[Hg] 80 mm[Hg] JOE García Attn: Accounting,[address] [place], [address], [facility] 11/02/2023 12:20:13 Date Recorded Body height Body mass index (BMI) Body weight Respiratory rate Heart rate Oxygen saturation Oxygen saturation in Arterial blood by Pulse oximetry Oxygen saturation Oxygen saturation in Arterial blood by Pulse oximetry Systolic blood pressure Diastolic blood pressure Systolic blood pressure Diastolic blood pressure Provider Name and Address Organization Details Last Updated DateTime 4 154.94 cm 32.1 kg/m2 70959.7 g 20 /min 78 /min 94 % 94 % 96 % 96 % 138 mm[Hg] 82 mm[Hg] 128 mm[Hg] 88 mm[Hg] Zenaida Lenz MA [facility] 4 12:43:29 Date Recorded Systolic blood pressure Diastolic blood pressure Systolic blood pressure Diastolic blood pressure Provider Name and Address Organization Details Last Updated DateTime 05/02/2024 140 mm[Hg] 80 mm[Hg] 140 mm[Hg] 80 mm[Hg] JOE García Attn: Accounting ,[address] [place], [address] , [facility] 4 12:59:45 Date Recorded Body height Oxygen saturation Oxygen saturation in Arterial blood by Pulse oximetry Heart rate Respiratory rate Body mass index (BMI) Body weight Systolic blood pressure Diastolic blood pressure Provider Name and Address Organization Details Last Updated DateTime 5 154.94 cm 98 % 98 % 94 /min 20 /min 31.9 kg/m2 01922.1 1 g 136 mm[Hg] 82 mm[Hg] Zenaida Lenz MA [facility] 5 17:06:14 Social History Question Answer Notes LastModified by Organizat ion Details LastModified Time Tobacco Smoking Status Never Smoker Zenaida Lenz MA null, [facility] 11/02/2023 12:05:03 Do You Have An Advance [...] Date Of Your Most Recent Tobacco Screening? 09/04/2024 Information not available 09/04/2024 Do You Use Your Seat Belt Or [...] What Date Was Tobacco Cessation Counseling Provided? 09/04/2024 Information not available 09/04/2024 Do You Or Have You Ever Used [...] dose or 50 mcg/0.25mL dose 1 completed [place], [place] - [facility] 05/01/2024 16:27:37 pneumococcal conjugate PCV 7 4 completed Zenaida L[place] [facility] 05/01/2024 16:27:37 influenza, [id number] 4 completed [place] [facility] 05/01/2024 16:27:37 Past Encounters Encounter ID Performer Location Encounter Start Date Encounter Closed Date Diagnosis/Indication Diagnosis SNOMED-CT Code Diagnosis ICD10 Code Diagnosis Note [id number] JOE García [facility] e - [place] [address] [place] [address] 11/02/2023 11:42:42 11/02/2023 12:24:03 Benign essential hypertension 9706783 I10 stable on valsartan 320mg daily. Multiple joint pain 3567 8005 M25.50 stable on meloxicam 15mg daily Long-term drug therapy 341789350 Z79.899 routine labs due in january. Blood gluc ose outside reference range 102205564 R73.09 following a1c with hx of extended steroid course for PMR hx. Gastroesop hageal reflux disease without esophagitis 428879415 K21.9 stable on omeprazole 20mg daily. Cholesterol screening 27 3923566 Z13.220 fasting lipids due in january [id number] JOE García [facility] [employer] [facility] [employer] [address] [place] [address] 05/02/2024 11:51:08 05/02/2024 13:01:38 Body mass index 30+ - obesity 915743053 Z68.32 BMI is 32.1 Overweight 245915284 E66 .3 Difficulty swallowing 28 5787578 R13.10 With difficulty swallowing symptoms that continue and barium swallow showing tertiary contractio n peristalsi s abnormalit ies we will send the patient for a modified barium swallow study. Pending results we may send her for an EGD. Persistent cough 7668809 02 R05[address] of the chest without contrast. Cough persists despite pulmonary function testing being normal last year as well as barium swallow testing and PPI therapy being on board. Dyspnea 152940115 R06.00 CT of the chest without contrast as ordered above Pain of ri ght shoulder joint 8531349840 0814690 M25.511 Refer to orthopedic office for evaluation and management plan for right shoulder pain that is increasing in nature and causing progressiv e range of motion issues. Benign ess ential hypertension 8798554 I10 stable on valsartan 320mg daily. Blood pressure is 140/80 today Gastroesop hageal reflux disease without esophagitis 098413422 K21.9 stable on omeprazole 20mg daily. Multiple joint pain 3567 8005 M25.50 stable on meloxicam 15mg daily Long-term drug therapy 067829674 Z79.899 Routine metabolic panel and CBC is due in July Prediabetes 925037562 R7 3.03 6.2% A1c on January labs. Continue watching added sugars in the diet and simple carbohydra dawson repeat A1c in July [id number] JOE García [facility] [employer] [address] [place] [address] 09/04/2024 16:44:24 09/04/2024 17:38:06 Fever 230207289 R50.9 Sore throat 920383621 J0 2.9 Influenza caused by Influenza A virus 477047377 J09.X2 Health Concerns Section Related Observation LastModified by Organization Apolinar hyde LastModified Time None Recorded Concern Status LastModified by Organization Details LastModified Time None Recorded Advance Directives Directive Y: Payers Encounter Date Sequence Insurance Name Policy Number Policy Grady Covered Member ID Grady Member ID Guarantor Name 11/02/2023 1 [facility] (MEDICARE REPLACEMENT/A DVANTAGE - HMO) [id number] Sofi Julia [id number] Sofi Julia 05/02/2024 1 [facility] (MEDICARE REPLACEMENT/A DVANTAGE - HMO) [id number] Sofi Julia [id number] Sofi Dumont Notes Date Note Type Note Provider Name and Address Organization Details Recorded Time 4 text/html HypertensionReported bypatient.Notes:stable on medications.Reflux/GERDRe ported bypatient.Notes:well controlled on PPI therapy hx of Polymyalgia rheumatica that is in remission and multiple joint pain hx, mostly shoulders are problematic. on meloxicam therapy. JOE García Attn: Accounting,[address] [place], [address], [facility] 11/02/2023 13:46:40 4 text/html HypertensionReported bypatient.Notes:Patient is [...] during swallowing. JOE García Attn: Accounting,[address] [place], [address], [facility] 05/02/2024 22:05:48 OBGyn Episode No OBEpisode recorded.
[2024-09-05 14:21] LABS: Add Urine Microscopic? YES; Appearance Urine Clear (Clear); Bacteria Urine 4+ /hpf; Bilirubin Urine Negative (Negative); Blood Urine 2+ (Negative); Color Urine Yellow (Yellow); Glucose Urine UA Negative (Negative); Ketones Urine 1+ mg/dL (Negative); Leukocyte Esterase Ur Trace LEU/UL (Negative); Need Manual Microscopic Reviewed; Nitrate Urine Positive (Negative); Protein Urine 2+ mg/dL (Negative); RBC Urine 0-2 /hpf (0-2); Specific Grav Ur 1.022 (1.001-1.035); Squamous Epithelial Cell Urine None Seen /hpf (Few); Urobilinogen Urine 0.2 mg/dL (<2.0)
[2024-09-05 14:43] LABS: Troponin I < 0.012 ng/mL (0.000-0.034)
--- OUTSIDE RECORDS SUMMARY | 2024-09-05 15:10 | XMS_ITS | Referral Summary ---
Author Organization [facility] Address [address] [place] [address] Care Team Providers Care Director Child Name Role Phone Girma Craven MD Primary Care Provider [phone] Source Comments [facility],non-owned Affiliates and Associated Physician Practices is amultiple site organization consisting of ambulatory clinics and hospital sitesin [place], [place], [place] and [place]. This disclosure is being madepursuant to the Care Everywhere program and may not contain all information available regarding this patient. Last updated 18.[facility] Allergies No known active allergies Medications * [...] Sexual Orientation Straight 08/27/2021 12 :39 PM MILL REPRESENTATIVE Last Filed Vital Signs Vital Sign Reading [...] 5:13 PM 02/14/2010 12:18 AM Care Teams Director Child Relationship Specialty Start Date End Date Girma Craven MD PCP - General 03/12/20
--- OUTSIDE RECORDS SUMMARY | 2024-09-05 15:10 | XMS_ITS | Referral Summary ---
Author Organization [facility] [address] [facility] Address [address] [place] [address] Care Team Providers Care Employee Relation Manager Name Role Phone Venu LICONA MD, Ramon Patel Unavailable [phone] Elizabeth Roberts MD Unavailable [phone] Mayra Jesus Unavailable [phone] Girma Craven MD Primary Care Provider [phone] Allergies No known active allergies Medications aspirin 81 mg chewable tablet Take 1 tablet (81 mg total) by mouth 2 (two) times a day 60 tablet 2 Active meloxicam (MOBIC) 15 mg tablet 2 Active ibuprofen (ADVIL,MOTRIN) suspension 100 mg/5 mL ibuprofen Active omeprazole (PriLOSEC) 20 mg capsule 2 Active valsartan (DIOVAN) 320 mg tablet Take 1 tablet (320 mg total) by mouth daily 3 Active polycarbophil (FIBERCON) 625 mg tablet Take 1 tablet (625 mg total) by mouth daily Active metoprolol XL (TOPROL-XL) 25 mg extended release tablet Take 1 tablet (25 mg total) by mouth daily 90 tablet 3 3 Active isosorbide mononitrate ER (IMDUR) 30 mg 24 hr tablet TAKE 3 TABLETS BY MOUTH DAILY 270 tablet 2 3 Active Additional Information Patient not taking.Reported on 05/16/2024 Active Problems Problem Noted Date Diagnosed Date Abnormal cardiovascular stress test 03/24/2023 Angina pectoris, unspecified 03/24/2023 History of total knee arthroplasty, left Diverticulitis of sigmoid colon 10/21/2021 Polymyalgia rheumatica ([facility]) 08/27/2021 Impaired glucose tolerance 08/27/2021 Changing skin lesion 08/27/2021 Closed fracture of metatarsal bone 08/22/2021 Osteoarthritis of knee 08/22/2021 Gastroesophageal reflux disease 08/22/2021 Lipoma of skin and subcutaneous tissue of neck 0 08/22/2021 Polymyalgia ([facility]) 08/09/2019 Cervical spondylosis without myelopathy 02/25/20 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 Never 09/18/2021 Average Number of Drinks Not on file 022 Q3: How often do you have si x or more drinks on one occasion? Never 09/18/2021 Comments No Sex and Gender Information Value Date Recorded Sex Assigned at Not on file Legal Sex Female 3:25 PM CDT Gender Identity Female 10/26/2023 9:52 AM CDT Sexual Orientation Not on file Last Filed Vital Signs Vital Sign Reading Time Taken Comments Blood Pressure 136/80 05/16/2024 10:01 AM [employer]EROCK TOWER LOADER Pulse 75 05/16/2024 10:01 AM [employer] T[employer] Temperature 36.2 C (97.1 F) 09/19/2021 7:00 AM CDT Respiratory Rate 18 09/19/2021 7:00 AM CDT Oxygen Saturation 98% 03/24/2023 9:49 AM CDT Inhaled Oxygen Concentration - - Weight 76.7 kg (169 lb) 05/16/2024 10:01 AM [employer] TOWER [employer]ER Height 154.9 cm (5' 1 ) 05/16/2024 10:01 AM [employer] TOWER LO[employer]ER Body Mass Index 31.93 05/16/2024 10:01 AM [employer] TOWER LOADER Plan of Treatment Not on file Medical Devices Implanted Type Area Agent Contract Clerk Device Identifier Shelf Expiration Date Model / Serial / Lot [employer] 6195-1-001 Cement Bone Simplex Gentamicin High Viscosity 40gm - [id number] Implanted:Qty: 1 on 09/18/2021 by Ruperto Clancy MD at [facility] Left: Knee [employer] 12/02/2022 6195-1-001 / / [id number] [employer] [id number] Attune Cruciate Retain Cementless Knee Left 4 Narrow Component - [id number] Implanted:Qty: 1 on 09/18/2021 by Ruperto Clancy MD at [facility] Left: Knee [employer] 07/04/2029 [id number] / / [id number] [employer] [id number] Attune S+ Cement Fix Bearing Knee 4 Baseplate Tibial - [id number] Implanted:Qty: 1 on 09/18/2021 by Ruperto Clancy MD at [facility] Left: Knee [employer] 06/03/2031 [id number] / / [id number] [employer] [id number] Attune 5mm Cruciate Retaining Fix Bearing Knee 4 Insert Tibial - [id number] Implanted:Qty: 1 on 09/18/2021 by Ruperto Clancy MD at [facility] Left: Knee [employer] 11/01/2025 [id number] / / [id number] [place] [address] [facility] Address: [address] [address] [place] [address] [facility] Address: [address] [address] [place] [address] [facility] Address: [address] [address] [place] [address] Advance Directives For more information, please contact: [phone] * Full Code (Latest Code Status on File) Date Activated Date Inactivated Comments 09/18/2021 3:55 PM 09/19/2021 7:34 PM Care Teams Employee Relation Manager Relationship Specialty Start Date End Date Girma Craven MD [address] [place] [address] PCP - General Internal Medicine 02/11/22 Ramon Lea III, MD [address] [place] [address] Consulting Physician Rheumatology 01/08/20 [place] [address] [place] [address] Rheumatology 08/22/21 Mayra Jesus PA [address] [place] [address] Physician Product Steward Orthopedic Surgery 09/19/21
--- OUTSIDE RECORDS SUMMARY | 2024-09-05 15:10 | XMS_ITS | Clinical Summary ---
Author Organization [facility] [employer] Address [address] [place] [address] Care Team Providers Care Dowel Inserting Machine Operator Name Role Phone Girma Craven MD Primary Care Provider [phone] Source Comments [facility] [employer],non-owned Affiliates and Associated Physician Practices is amultiple site organization consisting of ambulatory clinics and hospital sitesin [place], [place], [place] and [place]. This disclosure is being madepursuant to the Care Everywhere program and may not contain all information available regarding this patient. Last updated 18.[facility] [employer] Allergies No known active allergies Medications * [...] Sexual Orientation Straight 08/27/2021 12 :39 PM MANAGER MBA Last Filed Vital Signs Vital Sign Reading [...] 5:13 PM 02/14/2010 12:18 AM Care Teams Dowel Inserting Machine Operator Relationship Specialty Start Date End Date Girma Craven MD PCP - General 03/12/20
--- OUTSIDE RECORDS SUMMARY | 2024-09-05 15:10 | XMS_ITS | CONTINUITY OF CARE DOCUMENT ---
Author Name galileo gurrola Address Unknown Organization [facility] Address [address] [place] [address] Phone [phone] Care Team Providers Care Greenstone Polisher Operator Name Role Phone Juan TIERNEY, Anastasiia Unavailable SUKH FLOYD MD Unavailable [phone] SUKH FLOYD MD Unavailable PROBLEMS Condition Status Date Provider Notes CHEST PAIN,NORMAL CORONARIES active ? Anastasiia Martinez MD HYPERTENSION, ESSENTIAL active Anastasiia Martinez MD ENCOUNTERS Date Type Provider Location Encounter Diagnosis - In-person encounter Office Visit Anastasiia Martinez MD [facility] - In-person encounter Office Visit Anastasiia [place] [facility] - In-person encounter Office Visit Anastasiia Martinez MD [facility] CHEST PAIN,NORMAL CORONARIESHYPERTEN EVELYN, ESSENTIAL VITAL SIGNS Date Observation Value Provider blood pressure, diastolic 72 mm[Hg] Da aiden Martin blood pressure, systolic 134 mm[Hg] John Martin pulse rate 73 /min Kiesha Martin oxygen saturation, oximetry 94 % Kiehsa Martin respiratory rate E&M 18 /min Francisco [...] Policy type / Coverage type [employer] party ID [facility] [id number] TREATMENT PLAN Date Name Performer echo and [...] L ow LVEDP consistent with mild hypovolemia. [facility] (06/04/2008) E chocardiogram: Normal LV systolic function. B orderline LVH. Diastolic dysfunction. T rivial mitral regurgitation. [facility] (06/01/2008) Anastasiia Martinez MD echo and f/u: [...] ow LVEDP consistent with mild hypovolemia. E [facility] (06/04/2008) E chocardiogram: Normal LV systolic function. B orderline LVH. D iastolic dysfunction. T rivial mitral regurgitation. [facility] (06/01/2008) Anastasiia Martinez MD New Patient: CP [...]
--- OUTSIDE RECORDS SUMMARY | 2024-09-05 15:10 | XMS_ITS | Continuity of Care Document ---
Author Organization [facility] Address [address] [place] [address] [place] [address] Phone Care Team Providers Care Loader Helper Name Role Phone Unavailable Unavailable Unavailable Advance Directives Directive Yes / No Effective Date File Name No Information Encounters Encounter Description Practice Location Reason(s) For Visit Diagnoses Date Provider Providers [facility] [address] [place] [address] [address], [place], [place], [id number], [place] tel:[phone] [facility] No Information [id number] No Information Family [...]
--- OUTSIDE RECORDS SUMMARY | 2024-09-05 15:10 | XMS_ITS | Patient Health Summary ---
Author Organization [facility] Snap[employer] Address [address] [facility] [place] [address] Care Team Providers Care Cocktail Server Name Role Phone Girma Craven MD Primary Care Provider [phone] [facility],non-owned Affiliates and Associated Physician Practices is amultiple site organization consisting of ambulatory clinics and hospital sitesin [place], [place] and [place]. This disclosure is being madepursuant to the Care Everywhere program and may not contain all information available regarding this patient. Last updated 18.[facility] Allergies No known active allergies Medications * [...] Sexual Orientation Straight 08/27/2021 12 :39 PM WELT POCKET MACHINE OPERATOR Last Filed Vital Signs Vital Sign Reading [...] RATE(Performed 11/21/2021) Performed for PMR (polymyalgia rheumatica) ([facility]), On prednisone therapy, Therapeutic drug monitoring, Long-term use of immunosuppressant medication * C-REACTIVE PROTEIN(Performed 11/21/2021) Performed for PMR (polymyalgia rheumatica) ([facility]), On prednisone therapy, Therapeutic drug monitoring, Long-term use of immunosuppressant medication * COMPREHENSIVE METABOLIC PANEL(Performed 11/21/2021) Performed for PMR (polymyalgia rheumatica) ([facility]), On prednisone therapy, Therapeutic drug monitoring, Long-term use of immunosuppressant medication * CBC W AUTO DIFFERENTIAL(Performed 11/21/2021) Performed for PMR (polymyalgia rheumatica) ([facility]), On prednisone therapy, Therapeutic drug monitoring, Long-term use of immunosuppressant medication * URINALYSIS REFLEX TO MICROSCOPIC NO CULTURE(Performed 08/25/2021) Performed for Arthralgia, unspecified joint, Myalgia, PMR (polymyalgia rheumatica) ([facility]), On prednisone therapy * CBC W AUTO DIFFERENTIAL(Performed 08/25/2021) Performed for Arthralgia, unspecified joint, Myalgia, PMR (polymyalgia rheumatica) ([facility]), On prednisone therapy * ERYTHROCYTE SEDIMENTATION RATE(Performed 08/25/2021) Performed for Arthralgia, unspecified joint, Myalgia, PMR (polymyalgia rheumatica) ([facility]), On prednisone therapy * C-REACTIVE PROTEIN(Performed 08/25/2021) Performed for Arthralgia, unspecified joint, Myalgia, PMR (polymyalgia rheumatica) ([facility]), On prednisone therapy * COMPREHENSIVE METABOLIC PANEL(Performed 08/25/2021) Performed for Arthralgia, unspecified joint, Myalgia, PMR (polymyalgia rheumatica) ([facility]), On prednisone therapy * URINALYSIS MICROSCOPIC ONLY REFLEXED(Performed 06/06/2021) Performed for PMR (polymyalgia rheumatica) ([facility]), On prednisone therapy, High risk medication use, Arthralgia, unspecified joint * URINALYSIS W/MICROSCOPIC REFLEX TO CULTURE(Performed 06/06/2021) Performed for PMR (polymyalgia rheumatica) ([facility]), On prednisone therapy, High risk medication use, Arthralgia, unspecified joint * CBC W AUTO DIFFERENTIAL(Performed 06/06/2021) Performed for PMR (polymyalgia rheumatica) ([facility]), On prednisone therapy, High risk medication use, Arthralgia, unspecified joint * ERYTHROCYTE SEDIMENTATION RATE(Performed 06/06/2021) Performed for PMR (polymyalgia rheumatica) ([facility]), On prednisone therapy, High risk medication use, Arthralgia, unspecified joint * C-REACTIVE PROTEIN(Performed 06/06/2021) Performed for PMR (polymyalgia rheumatica) ([facility]), On prednisone therapy, High risk medication use, Arthralgia, unspecified joint * COMPREHENSIVE METABOLIC PANEL(Performed 06/06/2021) Performed for PMR (polymyalgia rheumatica) ([facility]), On prednisone therapy, High risk medication use, Arthralgia, unspecified joint * URINALYSIS MICROSCOPIC ONLY REFLEXED(Performed 04/15/2021) Performed for PMR (polymyalgia rheumatica) ([facility]), On prednisone therapy, High risk medication use, Arthralgia, unspecified joint * URINALYSIS W/MICROSCOPIC REFLEX TO CULTURE(Performed 04/15/2021) Performed for PMR (polymyalgia rheumatica) ([facility]), On prednisone therapy, High risk medication use, Arthralgia, unspecified joint * CBC W AUTO DIFFERENTIAL(Performed 04/15/2021) Performed for PMR (polymyalgia rheumatica) ([facility]), On prednisone therapy, High risk medication use, Arthralgia, unspecified joint * ERYTHROCYTE SEDIMENTATION RATE(Performed 04/15/2021) Performed for PMR (polymyalgia rheumatica) ([facility]), On prednisone therapy, High risk medication use, Arthralgia, unspecified joint * C-REACTIVE PROTEIN(Performed 04/15/2021) Performed for PMR (polymyalgia rheumatica) ([facility]), On prednisone therapy, High risk medication use, Arthralgia, unspecified joint * COMPREHENSIVE METABOLIC PANEL(Performed 04/15/2021) Performed for PMR (polymyalgia rheumatica) ([facility]), On prednisone therapy, High risk medication use, Arthralgia, unspecified joint * CULTURE URINE COMPREHENSIVE(Performed 04/15/2021) Performed for PMR (polymyalgia rheumatica) ([facility]), On prednisone therapy, High risk medication use, Arthralgia, unspecified joint * SS-B (SJOGREN'S) ANTIBODY(Performed 04/15/2021) Performed for Abnormal immunological finding in serum * SS-A (SJOGREN'S) ANTIBODY(Performed 04/15/2021) Performed for Abnormal immunological finding in serum * URINALYSIS REFLEX TO MICROSCOPIC NO CULTURE(Performed 03/11/2021) Performed for Arthralgia, unspecified joint, Myalgia, PMR (polymyalgia rheumatica) ([facility]), On prednisone therapy * CBC W AUTO DIFFERENTIAL(Performed 03/11/2021) Performed for Arthralgia, unspecified joint, Myalgia, PMR (polymyalgia rheumatica) ([facility]), On prednisone therapy * ERYTHROCYTE SEDIMENTATION RATE(Performed 03/11/2021) Performed for Arthralgia, unspecified joint, Myalgia, PMR (polymyalgia rheumatica) ([facility]), On prednisone therapy * C-REACTIVE PROTEIN(Performed 03/11/2021) Performed for Arthralgia, unspecified joint, Myalgia, PMR (polymyalgia rheumatica) ([facility]), On prednisone therapy * COMPREHENSIVE METABOLIC PANEL(Performed 03/11/2021) Performed for Arthralgia, unspecified joint, Myalgia, PMR (polymyalgia rheumatica) ([facility]), On prednisone therapy * URINALYSIS MICROSCOPIC ONLY [...] Resulting Agency Comment Lab Testing performed at: [address] [phone] Elizabeth Roberts MD LAB - CHEMISTRY ORDERABLES Performing Organization Address [facility] de Phone Number [facility] [address] [place] [address] * ERYTHROCYTE SEDIMENTATION RATE (11/21/2021 9:06 AM CDT) Only the most recent of12 resultswithin the time period is included. Erythrocyte Sedimentation Rate Westergren 2 0 - 40 mm/hr [facility] INSURANCE BILL Blood BLOOD SPECIMEN / Unknown 11/21/2021 9:06 AM CDT 11/21/2021 Narrative Resulting Agency Comment Lab Testing performed at: [facility] [address] [place] [phone] Elizabeth Roberts MD LAB - HEMATOLOG Y ORDERABLES Performing Organization Address [facility] Co de Phone Number [facility] INSURANCE BILL [address] [place] [address] * CBC WITH DIFFERENTIAL (11/21/2021 9:06 AM [...] Resulting Agency Comment Lab Testing performed at: [facility] [address] [facility] [phone] Elizabeth Roberts MD LAB - HEMATOLOG Y ORDERABLES [facility] INSURANCE BILL [address] [place] [address] * (ABNORMAL) COMPREHENSIVE METABOLIC PANEL (11/21/2021 9:06 [...] Resulting Agency Comment Lab Testing performed at: [facility] [address] [facility] [phone] Elizabeth Roberts MD LAB - CHEMISTRY ORDERABLES [facility] INSURANCE BILL [address] [place] [address] * URINALYSIS REFLEX TO MICROSCOPIC NO CULTURE (08/25/2021 10:09 AM WELT POCKET MACHINE OPERATOR) Only the most recent of2 resultswithin the time period is included. Specific Letart UA 1.010 1.005 - 1.030 [facility] INSURANCE [...] CATCH PROCEDURE / Unknown 08/25/2021 10:09 AM WELT POCKET MACHINE OPERATOR 08/25/2021 Narrative Resulting Agency Comment Lab Testing performed at: [facility] [address] [facility] [phone] Elizabeth Roberts MD LAB - URINALYSI S ORDERABLES [facility] INSURANCE BILL [address] [place] [address] * URINALYSIS MICROSCOPIC ONLY REFLEXED (06/06/2021 8:44 AM WELT POCKET MACHINE OPERATOR) Only the most recent of8 resultswithin the [...] test is not needed. 06/06/2021 8:44 AM WELT POCKET MACHINE OPERATOR 06/06/2021 Narrative Resulting Agency Comment Lab Testing performed at: [employer] [address] [phone] Elizabeth Roberts MD LAB - URINALYSI S ORDERABLES [facility] INSURANCE BILL [address] [place] [address] * URINALYSIS W/MICROSCOPIC REFLEX TO CULTURE (06/06/2021 8:44 AM WELT POCKET MACHINE OPERATOR) Only the most recent of8 resultswithin the time period is included. Specific Letart UA 1.008 1.005 - 1.030 [facility] INSURANCE [...] CATCH PROCEDURE / Unknown 06/06/2021 8:44 AM WELT POCKET MACHINE OPERATOR 06/06/2021 Narrative Resulting Agency Comment Lab Testing performed at: [facility] [phone] Elizabeth Roberts MD LAB - URINALYSI S ORDERABLES Performing Organization Address City/[facility]/ZIP Co de Phone Number [facility] INSURANCE BILL [address] [place] [address] * CULTURE URINE COMPREHENSIVE (04/15/2021 9:00 AM CDT) Only the most recent of2 resultswithin the time period is included. Urine Culture Comprehensive Final report [facility] INSURANCE BILL Result 1 [facility] INSURANCE BILL Comment: Mixed urogenital kirill 300 Colonies/mL 04/15/2021 9:00 AM CDT 04/15/2021 Narrative Resulting Agency Comment Lab Testing performed at: [facility] [address] [facility] [phone] Elizabeth Roberts MD LAB - MICROBIOL OGY ORDERABLES Performing Organization Address [facility] Co de Phone Number [facility] INSURANCE BILL [address] [place] [address] * SS-B (SJOGREN'S) ANTIBODY (04/15/2021 8:59 AM CDT) Only the most recent of2 resultswithin the time period is included. Sjogren's Antibodies (SSB) <0.2 0.0 - 0.9 [facility] INSURANCE BILL Blood BLOOD SPECIMEN / Unknown 04/15/2021 8:59 AM CDT 04/15/2021 Narrative Resulting Agency Comment Lab Testing performed at: [facility] [address] [facility] [phone] Elizabeth Roberts MD LAB - CHEMISTRY ORDERABLES Performing Organization Address City/[facility]/ZIP Co de Phone Number [facility] INSURANCE BILL [address] [place] [address] * SS-A (SJOGREN'S) ANTIBODY (04/15/2021 8:59 AM CDT) Sjogren's Antibodies (SSA) <0.2 0.0 - 0.9 [facility] INSURANCE BILL Blood BLOOD SPECIMEN / Unknown 04/15/2021 8:59 AM CDT 04/15/2021 Narrative Resulting Agency Comment Lab Testing performed at: [facility] [address] [facility] [phone] Elizabeth Roberts MD LAB - CHEMISTRY ORDERABLES [facility] INSURANCE BILL [address] [place] [address] * (ABNORMAL) SS-A (SJOGREN'S) 52+60 ANTIBODIES (03/19/2020 5:02 PM CDT) SS-A 52 Antibody 42(H) 0 - 40 AU/mL 03/22/2020 3:00 PM CDT [facility] ([facility]) Comment: INTERPRETIVE INFORMATION: SSA-52 (Ro52) (CRISTELA) [...] - 40 AU/mL 03/22/2020 3:00 PM CDT [facility] ([facility]) Comment: REFERENCE INTERVAL: SSA-60 (Ro60) (CRISTELA) Antibody, IgG 29 AU/mL or Less ............. Negative 30 - 40 AU/mL ................ Equivocal 41 AU/mL or Greater .......... Positive Performed By: [email or web address] [address] [place] [address] Painter Helper Sign: Neema Geronimo MD Blood BLOOD SPECIMEN / Unknown Lab Venipuncture / Unknown 03/19/2020 5:02 PM CDT 03/19/2020 5:44 PM CDT Elizabeth Roberts MD LAB - CHEMISTRY ORDERABLES Performing Organization Address City/[facility]/ZIP Co de Phone Number [facility] ([facility]) [address] [place] [address] * CYCLIC CITRUL PEPTIDE ANTIBODY IGG/IGA (CCP) (03/19/2020 5:02 PM CDT) CCP Antibodies IgG/IgA 5 0 - 19 units 03/22/2020 12:07 AM CDT [facility] ([facility]) Comment: Negative <20 Weak positive 20 - 39 Moderate positive 40 - 59 Strong positive >59 Blood BLOOD SPECIMEN / Unknown Lab Venipuncture / Unknown 03/19/2020 5:02 PM CDT 03/19/2020 5:44 PM CDT Narrative [facility] ([facility]) - 03/22/2020 12:07 AM CDT Performed at: [facility] [id number] [employer]ct Business Development Manager: Aquilino Horton MD, Phone: [phone] Elizabeth Roberts MD LAB - SEROLOGY ORDERABLES Performing Organization Address City/[facility]/ZIP Co de Phone Number [facility] ([facility]) [address] [id number] * ALDOLASE (03/19/2020 5:02 PM CDT) Aldolase 5.5 1.5 - 8.1 U/L 03/21/2020 5:00 PM CDT [facility] ([facility]) Comment: REFERENCE INTERVAL: Aldolase Access complete set of age- and/or gender-specific reference intervals for this test in the [employer] [facility] Test Directory ([employer]). Performed By: [email or web address] [address] [place] [address] Painter Helper Sign: Neema Geronimo MD Blood BLOOD SPECIMEN / Unknown Lab Venipuncture / Unknown 03/19/2020 5:02 PM CDT 03/19/2020 5:44 PM CDT Elizbaeth Roberts MD LAB - CHEMISTRY ORDERABLES [facility] ([facility]) [address] [place] [address], [facility] * LDH BLOOD (03/19/2020 5:02 PM CDT) LDH Total 213 125 - 243 Units/L 03/19/2020 6:16 PM CDT [facility] Blood BLOOD SPECIMEN / Unknown Lab Venipuncture / Unknown 03/19/2020 5:02 PM CDT 03/19/2020 5:44 PM CDT Elizabeth Roberts MD LAB - CHEMISTRY ORDERABLES [address] [address], [facility] [phone] * CK BLOOD (03/19/2020 5:02 PM CDT) Pathologist [facility] CK Total 78 30 - 200 Units/L 03/19/2020 6:16 PM CDT [facility] Blood BLOOD SPECIMEN / Unknown Lab Venipuncture / Unknown 03/19/2020 5:02 PM CDT 03/19/2020 5:44 PM CDT Elizabeth Roberts MD LAB - CHEMISTRY ORDERABLES Performing Organization Address City/[facility]/ZIP Co de Phone Number [address] [address], [place] [phone] * XR SPINE ENTIRE 2 OR 3VW [...] MD DIAGNOSTIC IMAGING O RDERABLES Care Teams Cocktail Server Relationship Specialty Start Date End Date Girma Craven MD [facility] - General 03/12/20
--- OUTSIDE RECORDS SUMMARY | 2024-09-05 15:10 | XMS_ITS | Clinical Summary ---
Author Organization [facility] [address] [facility] Address [address] [place] [address] Care Team Providers Care Professional Volleyball Player Name Role Phone Venu LICONA MD, Ramon Patel Unavailable [phone] Elizabeth Roberts MD Unavailable [phone] Mayra Jesus Unavailable [phone] Girma Craven MD Primary Care Provider [phone] Allergies No known active allergies Medications aspirin [...] Diverticulitis of sigmoid colon 10/21/2021 Polymyalgia rheumatica (CMS/HCC) 08/27/2021 Impaired glucose tolerance 08/27/2021 Changing skin lesion 08/27/2021 Closed fracture of metatarsal bone 08/22/2021 Osteoarthritis of knee 08/22/2021 Gastroesophageal reflux disease 08/22/2021 Lipoma of skin and subcutaneous tissue of neck 0 08/22/2021 Polymyalgia (CMS/HCC) 08/09/2019 Cervical spondylosis without myelopathy 02/25/20 10 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 02/11/2010 Immunizations Immunization Administration Dates Next Due Influenza, Unspecified 05/05/2021 Surgical History Surgery Date Site/Laterality Comments JOINT REPLACEMENT Right 7 yrs ago HERNIA REPAIR HYSTERECTOMY TONSILLECTOMY CATARACT EXTRACTION Medical History Medical History Date Comments Arthritis Polymyalgia rheumatica (CMS/HCC) (HCC) Hypertension Acid indigestion Arthritis Family History Medical History Relation Name Comments Diabetes Brother 1 Heart disease Brother 1 Heart attack Father Heart disease Father Arthritis Mother Diabetes Mother Heart disease Mother Relation Name Status Comments Brother 1 Brother 2 Father Mother Social History Tobacco Use Types Packs/Day Years [...] AM CDT Sexual Orientation Not on file Obstetrics History Last Filed Vital Signs Vital Sign Reading Time Taken Comments Blood Pressure 136/80 05/16/2024 10:01 AM SOFTWARE SYSTEMS ARCHITECT Pulse 75 05/16/2024 10:01 AM SOFTWARE SYSTEMS ARCHITECT Temperature 36.2 C (97.1 F) 09/19/2021 7:00 AM CDT Respiratory Rate 18 09/19/2021 7:00 AM CDT Oxygen Saturation 98% 03/24/2023 9:49 AM CDT Inhaled Oxygen Concentration - - Weight 76.7 kg (169 lb) 05/16/2024 10:01 AM SOFTWARE SYSTEMS ARCHITECT Height 154.9 cm (5' 1 ) 05/16/2024 10:01 AM SOFTWARE SYSTEMS ARCHITECT Body Mass Index 31.93 05/16/2024 10:01 AM SOFTWARE SYSTEMS ARCHITECT Plan of Treatment Health Maintenance Due Date Last Done Comments Depression Screening 1940 Osteoporosis Screening-Bone Density Scan 1938 Hepatitis B Screening 1956 Zoster Vaccine (1 of 2) 1988 Well Visit 65+ 12/02/2003 Pneumococcal vaccine 65+ (2 of 2 - PPSV23) 04/04/2015 04/04/2014 Fall Risk Assessment 09/19/2022 09/19/2021 Covid-19 Vaccine (3 - 2023-2 5 season) 2024 10/09/2020, 09/11/2020 Influenza Vaccine (#1) 2024 , 09/11/2020, 06/12/2020, Additional history exists DTaP/Tdap/Td Vaccine (2 - Td or Tdap) 06/12/2030 06/12/2020 Medical Devices Implanted Type Area Shredder Tender Device Identifier Shelf Expiration Date Model / Serial / Lot [employer] 6195-1-001 Cement Bone Simplex Gentamicin High Viscosity 40gm - [id number] Implanted:Qty: 1 on 09/18/2021 by Ruperto Clancy MD at [facility] Left: Knee [employer] 12/02/2022 6195-1-001 / / [id number] [employer] [id number] Attune Cruciate Retain Cementless Knee Left 4 Narrow Component - [id number] Implanted:Qty: 1 on 09/18/2021 by Ruperto Clancy MD at [facility] Left: Knee [employer] 07/04/2029 [id number] / / [id number] [employer] [id number] Attune S+ Cement Fix Bearing Knee 4 Baseplate Tibial - [id number] Implanted:Qty: 1 on 09/18/2021 by Ruperto Clancy MD at [facility] Left: Knee [employer] 06/03/2031 [id number] / / [id number] [employer] [id number] Attune 5mm Cruciate Retaining Fix Bearing Knee 4 Insert Tibial - [id number] Implanted:Qty: 1 on 09/18/2021 by Ruperto Clancy MD at [facility] Left: Knee [employer] 11/01/2025 [id number] / / [id number] Insurance MEDICARE SOLUTIONS [facility] MDCR HMO REF MEDICARE SOLUTIONS Advance Directives For more information, please contact: [phone] * Full Code (Latest Code Status on File) Date Activated Date Inactivated Comments 09/18/2021 3:55 PM 09/19/2021 7:34 PM Care Teams Professional Volleyball Player Relationship Specialty Start Date End Date Girma Craven MD [address] [place] [id number] PCP - General Internal Medicine 02/11/22 Ramon Lea III, MD [address] [place] [address] Consulting Physician Rheumatology 01/08/20 Elizabeth Roberts MD [address] [place] [phone] Rheumatology 08/22/21 Mayra Jesus PA [address] [place] [address] Physician Hose Operator Orthopedic Surgery 09/19/21
--- NOTE | 2024-09-05 16:51 | P.HP_ITS ---
H&P: HPI History of Present Illness Date/Time: 09/05/24 16:51 Chief Complaint: influenza A nausea, vomiting, diarrhea Narrative: This is an 83-year-old female with a significant past medical history of osteoarthritis, polymyalgia rheumatica, GERD, high cholesterol, hypertension, cataracts, TIA who presented to the hospital with nausea, vomiting, diarrhea associated with influenza A. patient states that she started feeling ill on Wednesday and then went seen her primary care doctor yesterday who diagnosed her with influenza A. She was given Tamiflu and sent home however she was unable to keep pills down due to nausea and vomiting. she denies any fever, chills, diarrhea, abdominal pain, chest pain, shortness a breath. Due to dehydration she presented to the hospital for further workup. Workup in the hospital included a chest x-ray which shown moderate pulmonary vascular congestion with a small left-sided pleural effusion and low lung volumes. Initial labs shown a white blood cell count of 6.4, sodium 133, bicarb 18, anion gap 17, troponin negative. UA was obtained and showed 2+ urine protein, 1+ urine ketone, 2+ urine blood, positive nitrate, trace leukocyte, 11-20 urine WBC, 4+ urine bacteria. Respiratory panel was positive for influenza A. Urine culture was obtained and pending. Patient was given a dose of Rocephin, Zofran, and 1 L of IV fluids while in the ED. Review of Systems Review of Systems: All systems reviewed & are unremarkable except as noted in HPI and below PMFSH Past Medical History Medical History TIA (transient ischemic attack) Cataracts, bilateral Cervical vertebral fusion Hyperlipidemia Hypertension PMR (polymyalgia rheumatica) Osteoarthritis Surgical History Surgical History H/O hernia repair S/P cholecystectomy History of total right knee replacement 2021 Family History Family History Mother Patient's mother is in good health, Onset Age: 89 Father Patient's father is in good health, Onset Age: 72 Sibling Patient's brother is in good health, Onset Age: 70 Social History Social History Smoking status: Never smoker Second hand tobacco smoke exposure: No Alcohol intake: never Substance use: never Substance use type: does not use Do You Feel Safe in your Home?: Yes Lack of Transportation: YES Lack of Food: Never True Current Housing: I Have Housing Concerned About Future Housing: No Difficulty Paying Gas/Electric Bills: No Difficulty Paying for Meds: No Currently Unemployed: No Education: Associate Degree Difficulty w/ Childcare or Family Care: No Living arrangements: with family Spiritual care concerns: No Meds Home Medications and Allergies Home Medications ?Medication ?Instructions ?Recorded ?Confirmed ?Type calcium polycarbophil 625 mg 625 mg PO DAILY 06/11/23 09/05/24 History tablet (FiberCon) meloxicam 15 mg tablet 15 mg PO DAILY 06/11/23 09/05/24 History omeprazole 20 mg capsule,delayed 20 mg PO DAILY 06/11/23 09/05/24 History release valsartan 320 mg tablet 320 mg PO DAILY 06/11/23 09/05/24 History fluticasone furoate 200 1 inh inhalation DAILY #60 ea 08/08/24 09/05/24 Rx mcg-vilanterol 25 mcg/dose inhalation powder Allergies Allergy/AdvReac Type Severity Reaction Status Date / Time No Known Allergies Allergy Verified 08/02/24 09:29 Vital Signs Vital Signs - 24 hr 09/05/24 12:34 09/05/24 12:40 09/05/24 12:41 Temperature 99.2 F Pulse Rate 88 Respiratory Rate 19 Blood Pressure 154/81 H 154/81 H Pulse Oximetry 96 95 94 09/05/24 12:45 09/05/24 12:47 09/05/24 13:00 Temperature Pulse Rate Respiratory Rate Blood Pressure 147/80 H Pulse Oximetry 94 94 91 09/05/24 13:02 Temperature Pulse Rate Respiratory Rate Blood Pressure 156/76 H Pulse Oximetry Exam Narrative: General: In no acute distress, well nourished Head: atraumatic, no encephalopathy Eyes: EOMI, PERRLA, sclera clear ENT: moist mucous membranes, nasal passages clear Neck: supple, no JVD, no adenopathy, trachea midline Cardiac: Normal S1 and S2,murmur Noted, no gallops or friction rubs, peripheral pulses intact. Respiratory: Lungs clear to auscultation, no adventitious lung sounds, currently on room air, nonproductive cough Gastrointestinal: soft, non-distended, non-tender, normoactive bowel sounds. : voiding without difficulty. Extremities: moves all extremities well, no edema Skin: clean, dry, intact. No wounds or lesions. Neuro: Alert and oriented x4, cranial nerves intact, no neuro deficits. Psych: normal mood, normal affect, interactive H&P: Results Labs Labs: Short CBC 09/05/24 Range/Units 12:45 WBC 6.4 (4.5-10.0) K/mm3 Hgb 13.7 (12.0-15.0) g/dL Hct 40.0 (37.0-47.0) % Plt Count 244 (150-375) k/mm3 BMP 09/05/24 12:45 Sodium 133 L Potassium 4.0 Chloride 98 Carbon Dioxide 18 L BUN 20 H Creatinine 0.84 Glucose 137 H Calcium 9.3 Cardiac Enzymes 09/05/24 Range/Units 12:45 Troponin I < 0.012 (0.000-0.034) ng/mL Liver Function 09/05/24 Range/Units 12:45 Total Bilirubin 0.6 (0.2-1.3) mg/dL AST 29 (14-36) U/L ALT 20 (6-35) U/L Alkaline Phosphatase 75 (38-126) U/L Albumin 4.7 (3.5-5.1) g/dL Urine 09/05/24 Range/Units 14:08 Urine Color Yellow (Yellow) Urine Appearance Clear (Clear) Urine pH 5.0 (5.0-9.0) Ur Specific [place] 1.022 (1.001-1.035) Urine Protein 2+ H (Negative) mg/dL Urine Glucose (UA) Negative (Negative) mg/dL Imaging Chest x-ray: Radiologist's impression: CHEST RADIOGRAPH CLINICAL HISTORY: influenza . COMPARISON: 09/23/2022 TECHNIQUE: Single portable view of the chest. FINDINGS The cardiomediastinal silhouette is partially obscured. Low lung volumes detected bilaterally. Increased interstitial markings are identified bilaterally, findings suggesting moderate pulmonary vascular congestion. Blunting of the left costophrenic sulcus suggesting a small left-sided pleural effusion. IMPRESSION: Moderate pulmonary vascular congestion with a small left-sided pleural effusion and low lung volumes Reviewed, dictated and finalized at location A. ATIONAL INTELLIGENCE OFFICER Assessment and Plan Assessment and plan (1) Influenza A: Code(s): J10.1 - Influenza due to other identified influenza virus with other respiratory manifestations Status: Acute Assessment and Plan: * respiratory panel positive for influenza A * chest x-ray showing moderate pulmonary vascular congestion with a small left sided pleural effusion low lung volumes * continue Tamiflu * will start azithromycin and continue Rocephin to treat for any underlying pneumonia (2) Pneumonia: Code(s): J18.9 - Pneumonia, unspecified organism Status: Acute Assessment and Plan: see above plan of care (3) Dehydration: Code(s): E86.0 - Dehydration Status: Acute Assessment and Plan: secondary from illness with influenza a * patient was given 2 L of normal saline while in the ED * continue normal saline at 125 mL/hour * monitor electrolytes * sodium 133, bicarb 18, anion gap 17 * advance diet as tolerated to a heart healthy diet (4) Metabolic acidosis: Code(s): E87.20 - Acidosis, unspecified Status: Acute Assessment and Plan: likely secondary to Influenza A,complicated by UTI and dehydration * High anion gap metabolic acidosis * bicarb 18, anion gap 17 (5) Acute UTI: Code(s): N39.0 - Urinary tract infection, site not specified Status: Acute Assessment and Plan: * UA showed 2+ urine protein, 1+ urine ketone, 2+ urine blood, positive nitrate, trace leukocyte, 11-20 urine WBC, 4+ urine bacteria * urine culture pending * continue Rocephin (6) Hypertension: Code(s): I10 - Essential (primary) hypertension Status: Acute Assessment and Plan: * blood pressure ranging 115/50- 152/54 * continue valsartan Quality VTE Prophylaxis VTE prophylaxis: pharmacologic ordered Hospitalist MIPS Advance Care Plan I have confirmed that the patient's Advanced Care Plan is present, code status is documented, or surrogate decision maker is listed in patient medical record.: Yes Medication Reconciliation I have utilized all available resources to obtain, update and review the patients current medications (includes all prescriptions, OTC, herbals, cannabis, and nutritional supplements).: Yes
--- NOTE | 2024-09-05 17:02 | ECG_ITS ---
Test Date: 2024-09-05 13:55:52 Measurements Intervals [place] Rate: 74 P: 36 VA: 210 QRS: 114 QRSD: 79 T: 60 QT: 382 QTc: 424 Interpretive Statements SINUS RHYTHM WITH FIRST DEGREE AV BLOCK POSSIBLE LEFT ATRIAL ENLARGEMENT [-0.1mV P WAVE IN V1/V2] LOW QRS VOLTAGE IN PRECORDIAL LEADS [QRS DEFLECTION < 1.0 mV IN CHEST LEADS] POSSIBLE RIGHT VENTRICULAR CONDUCTION DELAY [RSR (QR) IN V1/V2] ANTEROLATERAL MYOCARDIAL INFARCTION , OF INDETERMINATE AGE [40+ ms Q WAVE IN I/aVL/V3-V6] No previous ECG available for comparison Electronically Signed On 09-06-2024 15:41:39 SERVICE OBSERVER by Camacho Bruce M.D.
[2024-09-05 17:42] LABS: Hemoglobin A1C 5.9 % (<5.7)
--- NOTE | 2024-09-05 18:12 | ADMGEN ---
This patient, Sofi Dumont, was admitted to Medical Room 244-. Patient/family oriented to hospital policies and general routines including ID bracelet, bed and alarms, visiting hours, pain management, procedures, bathroom and other care routines, personal items, smoking policy, room service/diet, and visiting hours. Information on how to activate the Rapid Response Team has been discussed. Patient/Family are encouraged to report perceived risks to care and to ask questions if they do not understand what they are told or what they should do.
[2024-09-05] MEDS: SODIUM CHLORIDE 0.9% IV 1,000 ML 125 ML IV CONT (18:34)
[2024-09-05] MEDS: OSELTAMIVIR PHOSPHATE 75 MG CAPSULE PO (18:36)
[2024-09-05] MEDS: AZITHROMYCIN 250 MG TABLET 500 MG PO (18:36)
[2024-09-05] MEDS: guaiFENesin 12 HR 600 MG TABCR 1200 MG PO (20:44)
[2024-09-05] MEDS: ACETAMINOPHEN 325 MG TABLET 650 MG PO (20:44)
[2024-09-06] MEDS: SODIUM CHLORIDE 0.9% IV 1,000 ML 125 ML IV CONT ×2 (02:31→10:05)
[2024-09-06 05:15] LABS: Hematocrit 32.9 % (37.0-47.0); Hemoglobin 10.9 g/dL (12.0-15.0); Mean Corpuscular HGB Conc 33.1 g/dl (32-36); Mean Corpuscular Hemoglobin 31.3 pg (26-34); Mean Corpuscular Volume 94.5 fl (80-100); Mean Platelet Volume 10.5 fl (7.4-10.4); Platelet Count Result 183 k/mm3 (150-375); Red Blood Count 3.48 M/mm3 (4.2-5.4); Red Cell Distribution Width 13.3 % (11.5-14.5); White Blood Count 3.8 K/mm3 (4.5-10.0)
[2024-09-06 05:22] LABS: Alanine Aminotransferase 16 U/L (6-35); Albumin Level 3.1 g/dL (3.5-5.1); Alkaline Phosphatase 48 U/L (38-126); Anion Gap 9 mmol/L (4-12); Aspartate Amino Transferase 27 U/L (14-36); Bilirubin,Total 0.4 mg/dL (0.2-1.3); Blood Urea Nitrogen 20 mg/dL (7-17); Carbon Dioxide 22 mmol/L (22-30); Chloride 103 mmol/L (98-107); Estimated CRCL calculation 35 ml/min; Estimated Glomerular Filt Rate 57; Glucose 91 mg/dL (65-110); Potassium 3.9 mmol/L (3.4-5.0); Sodium 134 mmol/L (137-145)
[2024-09-06 05:53] LABS: Band Neutrophils Percent 4 % (0-6); Basophils Absolute Manual 0.03 K/mm3 (0.0-0.1); Basophils Percent Manual 1 % (0-1); Lymphocytes Absolute Manual 0.72 K/mm3 (1.1-4.5); Lymphocytes Percent Manual 19 % (18-44); Monocytes Absolute Manual 0.79 K/mm3 (0.1-0.90); Monocytes Percent Manual 21 % (3-9); Neutrophils Absolute Manual 2.24 K/mm3 (1.7-7.2); Neutrophils Percent Manual 55 % (46-73); Ovalocytes 1+; Platelet Estimate Adequate (Adequate); Schistocytes None Seen; Total Cells Counted 100
[2024-09-06 05:59] VITALS: BP 116/46; PULSE 62; RESP 17; TEMP 36.9; O2SAT 98
[2024-09-06 10:02] VITALS: RESP 18; O2SAT 98
[2024-09-06] MEDS: guaiFENesin 12 HR 600 MG TABCR 1200 MG PO ×2 (10:02→21:43)
[2024-09-06] MEDS: OSELTAMIVIR PHOSPHATE 30 MG CAPSULE PO ×2 (10:02→21:43)
[2024-09-06] MEDS: ENOXAPARIN 40 MG/0.4 ML SYRINGE SUB-Q (10:13)
--- NOTE | 2024-09-06 12:42 | P.PNIM_ITS ---
Progress Note: A&P Assessment and Plan (1) Influenza A: Code(s): J10.1 - Influenza due to other identified influenza virus with other respiratory manifestations Status: Acute Assessment and Plan: * respiratory panel positive for influenza A * chest x-ray showing moderate pulmonary vascular congestion with a small left sided pleural effusion low lung volumes * continue Tamiflu * will start azithromycin and continue Rocephin to treat for any underlying pneumonia 09/06/24 * No change to current treatment plan (2) Pneumonia: Code(s): J18.9 - Pneumonia, unspecified organism Status: Acute Assessment and Plan: see above plan of care (3) Dehydration: Code(s): E86.0 - Dehydration Status: Acute Assessment and Plan: secondary from illness with influenza a * patient was given 2 L of normal saline while in the ED * continue normal saline at 125 mL/hour * monitor electrolytes * sodium 133, bicarb 18, anion gap 17 * advance diet as tolerated to a heart healthy diet 09/06 * Na+ 134, Bicarb 22, Anion Gap 9 * Will DC IV fluids (4) Metabolic acidosis: Code(s): E87.20 - Acidosis, unspecified Status: Acute Assessment and Plan: likely secondary to Influenza A,complicated by UTI and dehydration * High anion gap metabolic acidosis * bicarb 18, anion gap 17 09/06 * Bicarb 22, Anion gap 9 * Corrected (5) Acute UTI: Code(s): N39.0 - Urinary tract infection, site not specified Status: Acute Assessment and Plan: * UA showed 2+ urine protein, 1+ urine ketone, 2+ urine blood, positive nitrate, trace leukocyte, 11-20 urine WBC, 4+ urine bacteria * urine culture pending * continue Rocephin 09/06 * Urine culture still pending * Continue Rocephin (6) Hypertension: Code(s): I10 - Essential (primary) hypertension Status: Acute Assessment and Plan: * blood pressure ranging 115/50- 152/54 * hold Valsartan 09/06 * No change Time Spent With Patient Time with patient: 25 - 35 minutes Subjective Date/time seen: 09/06/24 12:42 Interval history: Interval history: This is an 83-year-old female with a significant past medical history of osteoarthritis, polymyalgia rheumatica, GERD, high cholesterol, hypertension, cataracts, TIA who presented to the hospital with nausea, vomiting, diarrhea associated with influenza A. patient states that she started feeling ill on Wednesday and then went seen her primary care doctor yesterday who diagnosed her with influenza A. She was given Tamiflu and sent home however she was unable to keep pills down due to nausea and vomiting. she denies any fever, chills, diarrhea, abdominal pain, chest pain, shortness a breath. Due to dehydration she presented to the hospital for further workup. Workup in the hospital included a chest x-ray which shown moderate pulmonary vascular congestion with a small left-sided pleural effusion and low lung volumes. Initial labs shown a white blood cell count of 6.4, sodium 133, bicarb 18, anion gap 17, troponin negative. UA was obtained and showed 2+ urine protein, 1+ urine ketone, 2+ urine blood, positive nitrate, trace leukocyte, 11-20 urine WBC, 4+ urine bacteria. Respiratory panel was positive for influenza A. Urine culture was obtained and pending. Patient was given a dose of Rocephin, Zofran, and 1 L of IV fluids while in the ED. Subjective: Patient denies any new complaints today. Labs reviewed. Review of Systems Review of Systems: All systems reviewed & are unremarkable except as noted in HPI and below Exam Narrative: General: In no acute distress, well nourished Cardiac: Normal S1 and S2,murmur Noted, no gallops or friction rubs, peripheral pulses intact. Respiratory: Lungs clear to auscultation, no adventitious lung sounds, currently on room air, nonproductive cough Gastrointestinal: soft, non-distended, non-tender, normoactive bowel sounds. : voiding without difficulty. Neuro: Alert and oriented x4 Objective Data Vital Signs Vital Signs: Vital Signs - 24 hr 09/05/24 12:45 09/05/24 12:47 09/05/24 13:00 Temperature Pulse Rate Respiratory Rate Blood Pressure 147/80 H Pulse Oximetry 94 94 91 Oxygen Delivery 09/05/24 13:02 09/05/24 13:04 09/05/24 13:19 Temperature Pulse Rate Respiratory Rate Blood Pressure 156/76 H Pulse Oximetry 89 L 94 Oxygen Delivery 09/05/24 13:30 09/05/24 13:32 09/05/24 13:45 Temperature Pulse Rate Respiratory Rate Blood Pressure 155/73 H Pulse Oximetry 91 92 93 Oxygen Delivery 09/05/24 13:47 09/05/24 14:00 09/05/24 14:02 Temperature Pulse Rate 84 81 Respiratory Rate 16 18 Blood Pressure 138/71 158/71 H Pulse Oximetry 95 98 99 Oxygen Delivery 09/05/24 14:15 09/05/24 14:17 09/05/24 14:31 Temperature Pulse Rate 77 75 77 Respiratory Rate 18 18 21 H Blood Pressure 147/71 H Pulse Oximetry 89 L 100 Oxygen Delivery 09/05/24 14:32 09/05/24 14:51 09/05/24 15:04 Temperature Pulse Rate 73 79 72 Respiratory Rate 19 21 H 20 Blood Pressure 147/68 H Pulse Oximetry 98 100 100 Oxygen Delivery 09/05/24 15:18 09/05/24 15:30 09/05/24 15:45 Temperature Pulse Rate 72 73 72 Respiratory Rate 21 H 19 20 Blood Pressure Pulse Oximetry 100 100 99 Oxygen Delivery 09/05/24 15:47 09/05/24 16:00 09/05/24 16:02 Temperature Pulse Rate 72 75 76 Respiratory Rate 20 18 18 Blood Pressure 148/68 H 155/73 H Pulse Oximetry 100 100 99 Oxygen Delivery 09/05/24 16:30 09/05/24 16:32 09/05/24 16:45 Temperature Pulse Rate 79 81 89 Respiratory Rate 16 20 19 Blood Pressure 162/71 H Pulse Oximetry 98 96 Oxygen Delivery 09/05/24 16:48 09/05/24 17:00 09/05/24 17:02 Temperature Pulse Rate 79 82 83 Respiratory Rate 20 16 18 Blood Pressure 143/67 H 115/53 L Pulse Oximetry Oxygen Delivery 09/05/24 17:15 09/05/24 17:17 09/05/24 17:18 Temperature Pulse Rate 74 75 73 Respiratory Rate 23 H 19 20 Blood Pressure 152/54 H Pulse Oximetry 97 96 87 L Oxygen Delivery 09/05/24 17:30 09/05/24 17:32 09/05/24 17:45 Temperature Pulse Rate 80 78 79 Respiratory Rate 18 24 H 20 Blood Pressure 134/53 L Pulse Oximetry 97 98 99 Oxygen Delivery 09/05/24 17:47 09/05/24 20:00 09/05/24 20:54 Temperature 98.9 F Pulse Rate 79 72 Respiratory Rate 20 17 Blood Pressure 129/53 L 123/49 L Pulse Oximetry 97 94 Oxygen Delivery Room Air 09/06/24 05:59 09/06/24 10:02 Temperature 98.5 F Pulse Rate 62 Respiratory Rate 17 18 Blood Pressure 116/46 L Pulse Oximetry 98 98 Oxygen Delivery Room Air Intake/Output Intake/Output: Intake & Output 09/03/24 09/04/24 09/05/24 09/06/24 23:59 23:59 23:59 23:59 Intake Total 1050 2349.7 Output Total 125 Balance 925 2349.7 Meds/Results Medications: Active Medications Generic Name Dose Route Start Last Admin Trade Name Freq PRN Reason Stop Dose Admin Acetaminophen 650 mg 09/05/24 17:04 09/05/24 20:44 Acetaminophen 325 Mg Tablet PO 650 mg Q4H PRN Administration Mild Pain (1-3) or Fever Azithromycin 500 mg 09/05/24 17:20 09/05/24 18:36 Azithromycin 250 Mg Tablet PO 09/10/24 17:00 500 mg DAILY@1700 AMANDA Administration Enoxaparin Sodium 40 mg 09/06/24 09:00 09/06/24 10:13 Enoxaparin 40 Mg/0.4 Ml Syringe SUB-Q 40 mg DAILY AMANDA Administration Guaifenesin 1,200 mg 09/05/24 21:00 09/06/24 10:02 Guaifenesin 12 Hr 600 Mg Tabcr PO 1,200 mg Q12HR AMANDA Administration Ceftriaxone Sodium 1 gm in 50 mls @ 100 mls/hr 09/06/24 09:00 09/06/24 10:32 Rocephin 1 Gm/Ns 50 Ml IVPB Infused Q24H AMANDA Infusion Sodium Chloride 1,000 mls @ 125 mls/hr 09/05/24 16:30 09/06/24 10:32 Normal Saline Iv IV CONT 125 mls/hr .Q8H AMANDA Infusion Ondansetron HCl 4 mg 09/05/24 17:04 09/05/24 20:46 Ondansetron Inj 4 Mg/2 Ml Vial IV PUSH 4 mg Q6H PRN Administration Nausea And Vomiting Oseltamivir Phosphate 30 mg 09/06/24 09:00 09/06/24 10:02 Oseltamivir Phosphate 30 Mg Capsule PO 09/11/24 08:59 30 mg Q12HR AMANDA Administration Radiology Results: ITS Impressions Chest X-Ray 09/05/24 16:48 IMPRESSION: Moderate pulmonary vascular congestion with a small left-sided pleural effusion and low lung volumes Labs Labs: Laboratory Results - last 24 hr 09/05/24 09/05/24 09/05/24 12:45 12:52 14:07 WBC 6.4 RBC 4.41 Hgb 13.7 Hct 40.0 MCV 90.7 MCH 31.1 MCHC 34.3 RDW 13.1 Plt Count 244 MPV 10.2 Immature Gran % (Auto) 0.3 Neut % (Auto) 74.6 H Lymph % (Auto) 5.8 L [place] % (Auto) 18.5 H Eos % (Auto) 0.0 Baso % (Auto) 0.8 Lymph # (Auto) 0.37 L [place] # (Auto) 1.2 H Eos # (Auto) 0.0 Baso # (Auto) 0.1 Abs Immat Gran (auto) 0.02 Absolute Neuts (auto) 4.8 Absolute Nucleated RBC 0.000 Total Counted Neutrophils % (Manual) Band Neutrophils % Lymphocytes % (Manual) Monocytes % (Manual) Basophils % (Manual) Nucleated RBC % 0.0 Abs Neuts (Manual) Abs Lymphs (Manual) Abs Monocytes (Manual) Abs Basophils (Manual) Platelet Estimate Ovalocytes Schistocytes Sodium 133 L Potassium 4.0 Chloride 98 Carbon Dioxide 18 L Anion Gap 17 H BUN 20 H Creatinine 0.84 Estim Creat Clear Calc Not Reportable Estimated GFR > 60 Glucose 137 H Hemoglobin A1c 5.9 H Calcium 9.3 Magnesium 2.0 Total Bilirubin 0.6 AST 29 ALT 20 Alkaline Phosphatase 75 Troponin I < 0.012 Total Protein 8.0 Albumin 4.7 Lipase 31 TSH 2.300 Urine Color Urine Appearance Urine pH Ur Specific [place] Urine Protein Urine Glucose (UA) Urine Ketones Ur Blood (Man) Urine Nitrate Urine Bilirubin Urine Urobilinogen Add Ur Microanalysis Leukocyte Esterase Rfl Urine RBC Urine WBC Ur Squamous Epith Cells Urine Bacteria Urine Casts Influenza A (RT-PCR) Positive A Influenza B (RT-PCR) Negative SARS-CoV-2 RNA (RT-PCR) Negative 09/05/24 09/06/24 14:08 04:49 WBC 3.8 L RBC 3.48 L Hgb 10.9 L Hct 32.9 L MCV 94.5 MCH 31.3 MCHC 33.1 RDW 13.3 Plt Count 183 MPV 10.5 H Immature Gran % (Auto) Not Reportable Neut % (Auto) Not Reportable Lymph % (Auto) Not Reportable [place] % (Auto) Not Reportable Eos % (Auto) Not Reportable Baso % (Auto) Not Reportable Lymph # (Auto) Not Reportable [place] # (Auto) Not Reportable Eos # (Auto) Not Reportable Baso # (Auto) Not Reportable Abs Immat Gran (auto) Not Reportable Absolute Neuts (auto) Not Reportable Absolute Nucleated RBC Not Reportable Total Counted 100 Neutrophils % (Manual) 55 Band Neutrophils % 4 Lymphocytes % (Manual) 19 Monocytes % (Manual) 21 H Basophils % (Manual) 1 Nucleated RBC % Not Reportable Abs Neuts (Manual) 2.24 Abs Lymphs (Manual) 0.72 L Abs Monocytes (Manual) 0.79 Abs Basophils (Manual) 0.03 Platelet Estimate Adequate Ovalocytes 1+ Schistocytes None seen Sodium 134 L Potassium 3.9 Chloride 103 Carbon Dioxide 22 Anion Gap 9 BUN 20 H Creatinine 0.94 Estim Creat Clear Calc 35 Estimated GFR 57 L Glucose 91 Hemoglobin A1c Calcium 8.0 L Magnesium 2.0 Total Bilirubin 0.4 AST 27 ALT 16 Alkaline Phosphatase 48 Troponin I Total Protein 5.0 L Albumin 3.1 L Lipase TSH Urine Color Yellow Urine Appearance Clear Urine pH 5.0 Ur Specific [place] 1.022 Urine Protein 2+ H Urine Glucose (UA) Negative Urine Ketones 1+ H Ur Blood (Man) 2+ H Urine Nitrate Positive H Urine Bilirubin Negative Urine Urobilinogen 0.2 Add Ur Microanalysis Reviewed Leukocyte Esterase Rfl Trace H Urine RBC 0-2 Urine WBC 11-20 H Ur Squamous Epith Cells None seen Urine Bacteria 4+ H Urine Casts 3-5 Influenza A (RT-PCR) Influenza B (RT-PCR) SARS-CoV-2 RNA (RT-PCR) Quality VTE Prophylaxis VTE prophylaxis: pharmacologic ordered
[2024-09-06 14:00] VITALS: BP 113/53; PULSE 62; RESP 16; TEMP 36.9; O2SAT 99
[2024-09-06] MEDS: AZITHROMYCIN 250 MG TABLET 500 MG PO (17:09)
[2024-09-06 20:00] VITALS: BP 137/60; PULSE 64; RESP 18; TEMP 36.2; O2SAT 100
[2024-09-06 22:00] VITALS: BP 139/66; PULSE 63; RESP 18; TEMP 37; O2SAT 96
[2024-09-06 23:48] VITALS: BP 141/64; PULSE 63; RESP 18; TEMP 36.7; O2SAT 98
[2024-09-07] MEDS: ACETAMINOPHEN 325 MG TABLET 650 MG PO ×2 (00:23→08:40)
[2024-09-07 04:00] VITALS: BP 134/57; PULSE 60; RESP 18; TEMP 36.3; O2SAT 99
[2024-09-07 06:00] VITALS: BP 150/61; PULSE 60; RESP 18; TEMP 36.7; O2SAT 97
[2024-09-07 06:16] LABS: Basophils Percent Auto 1.1 % (0.2-1.2); Eosinophils Absolute Auto 0.1 K/mm3 (0-0.3); Eosinophils Percent Auto 2.3 % (0-4.4); Hematocrit 33.1 % (37.0-47.0); Hemoglobin 10.9 g/dL (12.0-15.0); Immature Granulocyte Absolute 0.01 K/mm3 (0.00-0.031); Immature Granulocyte Percent A 0.3 % (0-0.5); Lymphocytes Absolute Auto 1.27 K/mm3 (0.9-3.2); Lymphocytes Percent Auto 36.3 % (18.3-44.2); Mean Corpuscular HGB Conc 32.9 g/dl (32-36); Mean Corpuscular Hemoglobin 30.8 pg (26-34); Mean Corpuscular Volume 93.5 fl (80-100); Mean Platelet Volume 10.8 fl (7.4-10.4); Monocytes Absolute Auto 0.8 K/mm3 (0.1-0.6); Monocytes Percent Auto 22.3 % (2.6-8.5); Neutrophils Absolute Auto 1.3 K/mm3 (1.3-6.7); Neutrophils Percent Auto 37.7 % (45.5-73.1); Platelet Count Result 184 k/mm3 (150-375); Red Blood Count 3.54 M/mm3 (4.2-5.4); Red Cell Distribution Width 12.9 % (11.5-14.5); White Blood Count 3.5 K/mm3 (4.5-10.0)
[2024-09-07 06:24] LABS: Alanine Aminotransferase 18 U/L (6-35); Albumin Level 2.9 g/dL (3.5-5.1); Alkaline Phosphatase 50 U/L (38-126); Anion Gap 6 mmol/L (4-12); Aspartate Amino Transferase 28 U/L (14-36); Bilirubin,Total 0.2 mg/dL (0.2-1.3); Blood Urea Nitrogen 15 mg/dL (7-17); Calcium 8.1 mg/dL (8.4-10.2); Carbon Dioxide 24 mmol/L (22-30); Chloride 105 mmol/L (98-107); Estimated CRCL calculation 40 ml/min; Estimated Glomerular Filt Rate > 60; Glucose 86 mg/dL (65-110); Potassium 4.1 mmol/L (3.4-5.0); Sodium 135 mmol/L (137-145)
[2024-09-07 08:29] VITALS: RESP 18; O2SAT 97
[2024-09-07] MEDS: calcium polycarbophiL 625 MG TABLET PO (08:41)
[2024-09-07] MEDS: levoFLOXacin 750 MG TABLET PO (08:41)
[2024-09-07] MEDS: OSELTAMIVIR PHOSPHATE 30 MG CAPSULE PO (08:42)
[2024-09-07] MEDS: ENOXAPARIN 40 MG/0.4 ML SYRINGE SUB-Q (08:42)
[2024-09-07] MEDS: guaiFENesin 12 HR 600 MG TABCR 1200 MG PO (08:42)
[2024-09-07 10:00] VITALS: BP 140/50; PULSE 64; RESP 18; TEMP 36.6; O2SAT 97
--- NOTE | 2024-09-07 10:50 | P.DS_ITS ---
DS: Admitting Diagnosis Discharge Date 09/07/24 Admitting Diagnosis Influenza A Pneumonia Dehydration Metabolic acidosis Acute UTI Hypertension DS: Discharge Diagnosis Discharge Diagnosis (1) Influenza A: Code(s): J10.1 - Influenza due to other identified influenza virus with other respiratory manifestations Status: Acute (2) Pneumonia: Code(s): J18.9 - Pneumonia, unspecified organism Status: Acute (3) Dehydration: Code(s): E86.0 - Dehydration Status: Acute (4) Metabolic acidosis: Code(s): E87.20 - Acidosis, unspecified Status: Acute (5) Acute UTI: Code(s): N39.0 - Urinary tract infection, site not specified Status: Acute (6) Hypertension: Code(s): I10 - Essential (primary) hypertension Status: Acute DS: Summary Hospital Course Reason for hospitalization: Influenza A Pneumonia Dehydration Metabolic acidosis Acute UTI Hypertension Hospital Course: This is an 83-year-old female with a significant past medical history of osteoarthritis, polymyalgia rheumatica, GERD, high cholesterol, hypertension, cataracts, TIA who presented to the hospital with nausea, vomiting, diarrhea associated with influenza A. patient states that she started feeling ill on Wednesday and then went seen her primary care doctor yesterday who diagnosed her with influenza A. She was given Tamiflu and sent home however she was unable to keep pills down due to nausea and vomiting. she denies any fever, chills, diarrhea, abdominal pain, chest pain, shortness a breath. Due to dehydration she presented to the hospital for further workup. Workup in the hospital included a chest x-ray which shown moderate pulmonary vascular congestion with a small left-sided pleural effusion and low lung volumes. Initial labs shown a white blood cell count of 6.4, sodium 133, bicarb 18, anion gap 17, troponin negative. UA was obtained and showed 2+ urine protein, 1+ urine ketone, 2+ urine blood, positive nitrate, trace leukocyte, 11-20 urine WBC, 4+ urine bacteria. Respiratory panel was positive for influenza A. Urine culture was obtained and pending. Patient was given a dose of Rocephin, Zofran, and 1 L of IV fluids while in the ED. Urine culture coming back with E coli on preliminary read. Rocephin was changed to oral Levofloxacin. She will need to finish her Tamiflu and antibiotics, then follow up with her PCP in 1 week. She is stable for discharge at this time. Metabolic acidosis corrected with IVF resuscitation. Final diagnosis: Influenza A, Pneumonia, Metabolic acidosis, Acute UTI Status at Discharge Cognitive/behavioral status at discharge: Alert and oriented x3 Functional status at discharge: uses cane/walker Overall status at discharge: patient is progressing back to baseline Time Spent with Patient Time attestation: Total time spent providing and/or coordinating discharge services: Time spent: Greater than 30 minutes Exam Narrative: General: In no acute distress, well nourished Cardiac: Normal S1 and S2,murmur Noted, no gallops or friction rubs, peripheral pulses intact. Respiratory: Lungs clear to auscultation, no adventitious lung sounds, currently on room air, nonproductive cough Gastrointestinal: soft, non-distended, non-tender, normoactive bowel sounds. : voiding without difficulty. Neuro: Alert and oriented x4 DS: Data Data Completed and Pending Completed studies during hospitalization: chest X-ray Pending studies at discharge: Urine culture Labs on day of discharge: Labs from last 24 hours 09/07/24 05:26 WBC 3.5 L RBC 3.54 L Hgb 10.9 L Hct 33.1 L MCV 93.5 MCH 30.8 MCHC 32.9 RDW 12.9 Plt Count 184 MPV 10.8 H Immature Gran % (Auto) 0.3 Neut % (Auto) 37.7 L Lymph % (Auto) 36.3 Harrison % (Auto) 22.3 H Eos % (Auto) 2.3 Baso % (Auto) 1.1 Lymph # (Auto) 1.27 Harrison # (Auto) 0.8 H Eos # (Auto) 0.1 Baso # (Auto) 0.0 Abs Immat Gran (auto) 0.01 Absolute Neuts (auto) 1.3 Absolute Nucleated RBC 0.000 Nucleated RBC % 0.0 Sodium 135 L Potassium 4.1 Chloride 105 Carbon Dioxide 24 Anion Gap 6 BUN 15 D Creatinine 0.81 Estim Creat Clear Calc 40 Estimated GFR > 60 Glucose 86 Calcium 8.1 L Total Bilirubin 0.2 AST 28 ALT 18 Alkaline Phosphatase 50 Total Protein 5.0 L Albumin 2.9 L Preliminary micro results at discharge 09/05/24 14:08 Urine Culture - Preliminary Urine Clean Catch Escherichia Coli Procedures/Treatments: None Discharge Plan Discharge Attending physician on discharge: Diego Infante Discharging Clinician: Paula Rojas Anticipated Discharge Date/Time: 09/07/24 10:46 Patient Disposition: Home, Self-Care Activity: as tolerated Diet: as tolerated and heart healthy Discharge Instructions: * Finish all your antibiotic and Tamiflu as directed even if you are feeling better * Follow up with your primary care doctor in 1 week. Patient Instructions: Antibiotic Form, Levofloxacin (By mouth), Oseltamivir (By mouth), Influenza (DC), Pneumonia (DC) Patient Language: Belarusian Stand Alone Forms: General Discharge Information Follow-up/Referrals: Dimitri,JAZMIN Cruz [Primary Care Provider] - 1 Week Discharge Medications: New oseltamivir [Tamiflu] 30 mg Capsule 30 mg PO Q12HR Qty: 7 0RF levofloxacin 750 mg tablet 750 mg PO DAILY Qty: 5 0RF Continued meloxicam 15 mg tablet 15 mg PO DAILY valsartan 320 mg tablet 320 mg PO DAILY calcium polycarbophil [FiberCon] 625 mg Tablet 625 mg PO DAILY omeprazole 20 mg capsule,delayed release(DR/EC) 20 mg PO DAILY fluticasone furoate-vilanterol 200-25 mcg/dose blister with device 1 inh inhalation DAILY Qty: 60 3RF Date of admission: 09/05/24 16:28 Primary Care Provider: DimitriNancy Admitting Provider: Danish Vo Attending physician on admission: Danish Vo Condition: Improved Quality VTE Prophylaxis VTE prophylaxis: pharmacologic ordered Hospitalist MIPS Heart Failure (Exclusion) Patient has history of Heart Transplant or Left Ventricular Assistive Device?: No IF YES, STOP HERE Heart Failure (Qualifier) Patient has current or prior documentation of LVEF less than or equal to 40%, or mod/servere depressed LVSF?: No IF NO, STOP HERE
== END 2024-09-07 14:25 | disposition home or self-care (01) ==
LOC: ANHED 13:20 → ANH2MED 17:30
PROVIDERS: Nurse Practitioner Acute Care; Admitting Provider Internal Medicine; Emergency Provider Physician Assistant; PCP Physician Assistant; Visit Provider Hospitalist
DX: J10.00 Influenza due to other identified influenza virus with unspecified type of pneumonia (principal); E87.20 Acidosis, unspecified; N39.0 Urinary tract infection, site not specified; E86.0 Dehydration; I10 Essential (primary) hypertension; M19.90 Unspecified osteoarthritis, unspecified site; M35.3 Polymyalgia rheumatica; K21.9 Gastro-esophageal reflux disease without esophagitis; E78.00 Pure hypercholesterolemia, unspecified; H26.9 Unspecified cataract; Z86.73 Personal history of transient ischemic attack (TIA), and cerebral infarction without residual deficits; Z20.822 Contact with and (suspected) exposure to COVID-19; Z79.51 Long term (current) use of inhaled steroids; Z79.899 Other long term (current) drug therapy
CPT/HCPCS: 36415; 71045; 80053; 81001; 83036; 83690; 83735; 84443; 84484; 85025; 87077; 87086; 87186; 87636; 93005; 96361; 96365; 96372; 96375; 96376; 99285; A9270; G0378; J0696; J1650; J2405; J7030; J7040